=== PATIENT | male | born 1945 | race Caucasian/White ===

== ENCOUNTER → 2019-12-13 15:52 | Outpatient (CLI) | payer MEDICARE, SELFPAY ==
--- NOTE | ~2019-12-13 | XR_ITS ---
EXAMINATION: XR chest 2V EXAM DATE: 12/13/2019 15:59 INDICATION: Bronchitis. TECHNIQUE: Frontal and lateral projections of the chest obtained and reviewed. Comparison is made to prior examination from 10/04/2019. FINDINGS: Sternotomy wires are present without findings to suggest sternal dehiscence. The lungs are clear. There are no pleural effusions. The cardiomediastinal silhouette is within normal limits. There is no pneumothorax suspected. Patient has diffuse idiopathic skeletal hyperostosis (DISH). IMPRESSION: No acute cardiopulmonary findings. Reviewed, dictated and finalized at location B. GER BUSINESS INFORMATION
== END ==
PROVIDERS: PCP Family Medicine; Visit Provider Family Medicine
DX: J40 Bronchitis, not specified as acute or chronic (principal)
CPT/HCPCS: 71046

== ENCOUNTER 2020-05-12 01:17 | Outpatient (CLI) | payer MEDICARE, SELFPAY ==
[2020-05-12 20:05] LABS: SARS-CoV-2 RNA PCR Negative
== END 2020-05-12 01:18 | disposition home or self-care (01) ==
LOC: ANHCOVIDDT 01:17
PROVIDERS: PCP Family Medicine; Visit Provider Specialist
DX: Z01.818 Encounter for other preprocedural examination (principal); Z11.59 Encounter for screening for other viral diseases
CPT/HCPCS: 87635; C9803; U0003

== ENCOUNTER 2020-05-15 05:22 | Day surgery (SDC) | payer MEDICARE, SELFPAY ==
[2020-05-11 20:42] VITALS: BMI 33.5
[2020-05-15] VITALS (8 sets, daily range): BP systolic 127–141; BP diastolic 52–96; PULSE 48–107; RESP 14–20; TEMP 36.3; O2SAT 97–100; BMI 32.1
--- NOTE | 2020-05-15 06:00 | ECG_ITS ---
Measurements Intervals [place] Rate: 110 P: MI: 0 QRS: 71 QRSD: 153 T: -15 QT: 382 QTc: 519 Interpretive Statements ATRIAL FLUTTER/TACHYCARDIA WITH RAPID VENTRICULAR RESPONSE RIGHT BUNDLE BRANCH BLOCK BASELINE ARTIFACT- II, III, AVL, AVF ABNORMAL ECG Electronically Signed On 05-15-2020 9:17:25 CDT by Murali Jc D.O.
[2020-05-15 09:34] LABS: Anion Gap 14.7 mmol/L (7-16); Blood Urea Nitrogen 24 mg/dL (9-20); Calcium 9.6 mg/dL (8.4-10.2); Carbon Dioxide 25 mmol/L (22-30); Chloride 98 mmol/L (98-107); Estimated CRCL calculation 65 ml/min; Estimated Glomerular Filt Rate > 60; Glucose 245 mg/dL (75-110); Magnesium 1.4 mg/dL (1.6-2.3); Potassium 3.7 mmol/L (3.4-5.0); Sodium 134 mmol/L (137-145)
--- NOTE | 2020-05-15 09:58 | P.PCNCC_ITS ---
Cardiac Cath Procedure Note Date of procedure:: 05/15/20 Performing physician:: Daljit Aguilar MD Indication:: Atrial fibrillation, atrial flutter, recent ablation Brief clinical history:: 74-year-old patient with a history of atrial fib treated with recent ablation at another hospital. He is symptomatic with lack of energy and felt to be back in atrial fibrillation. Of another attempt at electrical cardioversion has been recommended by his yarn mercerizer operator helper and scheduled for us here this morning. ECG upon arrival appears to show atypical atrial flutter with right bundle branch block. Procedure Procedure performed:: DC cardioversion Sedation/Medication given:: propofol 50 mg case start time is 9:48 a.m. case end time 9:50 a.m. sedation provided by Cornel Jimenez RN , trained observer Estimated blood loss:: no blood loss Procedure note:: patient was brought to the cardiac catheterization lab holding area in the postabsorptive state. He was in the supine position with defibrillator patches placed in the AP position. The defibrillator was turned on at 200 joules in synchronized to the R-wave. He was then sedated with propofol 1 dose of 50 mg provided very good sedation. Following this he was cardioverted with 200 joules in a synchronized fashion restoring normal sinus rhythm Findings:: successful DC cardioversion of atrial flutter to sinus rhythm using 200 joules x1 shock Conclusion:: as above successful electrical tenriism of normal sinus rhythm Daljit Aguilar MD [facility]
--- NOTE | 2020-05-15 10:15 | ECG_ITS ---
Measurements Intervals [place] Rate: 67 P: 71 ND: 197 QRS: 22 QRSD: 144 T: -23 QT: 447 QTc: 474 Interpretive Statements SINUS RHYTHM RIGHT BUNDLE BRANCH BLOCK BASELINE ARTIFACT- I, II, AVR ABNORMAL ECG Electronically Signed On 05-15-2020 11:49:07 CDT by Murali Jc D.O.
--- NOTE | 2020-06-08 07:16 | PM.IMHP ---
H&P: HPI History of Present Illness Date/Time: 06/08/20 07:16 Chief complaint: Afib Narrative: Vidal Chaudhary is a 74 year old male With a history of atrial fibrillation /atrial flutter who has been treated with medical antiarrhythmic therapy as well as anticoagulation. The patient also has undergone radiofrequency ablation and pulmonary vein isolation for maintenance of sinus rhythm. In follow-up with his caregivers non medical he was recently found to be back in atrial flutter. Another attempt at electrical cardioversion was recommended. Since the patient lives in this vicinity it was his desire to have this done [facility] rather than in [place] where his caregivers non medical practices. His symptom of the recurrent atrial fib is primarily fatigue and lack of energy and stamina. Review of Systems Constitutional: Constitutional: Reports fatigue Eyes: Eyes: Reports no additional eye complaints ENT: Reports system reviewed and no additional complaints, except as documented Cardiovascular: Cardiovascular: Reports palpitations Respiratory: Respiratory: Reports dyspnea on exertion Gastrointestinal: Gastrointestinal: Reports no additional gastrointestinal complaints Genitourinary: Genitourinary: Reports no additional male genitourinary complaints Musculoskeletal: Musculoskeletal: Reports no additional musculoskeletal complaints Integumentary/Breasts: Skin/Breast: Reports system reviewed and no additional complaints, except as docu Neurologic: Reports system reviewed and no additional complaints, except as documented Psychiatric: Psychiatric: Reports no additional psychiatric complaints [facility] Social History Social History Smoking status: Never smoker Second hand tobacco smoke exposure: No Alcohol intake: never Substance use: never Substance use type: does not use Additional living arrangements comments: LIVES W/ , [place] Gender identity (if verbalized by the patient): Male Spiritual care concerns: No Agree to blood products: No Meds Home Medications and Allergies Home Medications Medication Instructions Recorded Confirmed Type isosorbide dinitrate 20 mg PO TID 09/25/19 06/01/20 History Xarelto 20 mg PO QPM 11/09/19 06/01/20 History aspirin [Adult Low Dose Aspirin] 81 mg PO DAILY 11/09/19 06/01/20 History quinapril 40 mg tablet 40 mg PO DAILY #90 tablet 12/08/19 06/01/20 Rx empagliflozin 10 mg tablet 10 mg PO DAILY #90 tablet 03/10/20 06/01/20 Rx pen needle, diabetic 32 gauge x #100 each 03/20/20 06/01/20 Rx 1/6 atorvastatin 40 mg tablet 40 mg PO DAILY #90 tablet 03/22/20 06/01/20 Rx linagliptin 5 mg tablet 5 mg PO DAILY 04/04/20 06/01/20 History sertraline 100 mg tablet 200 mg PO DAILY #90 tablet 04/17/20 06/01/20 Rx metformin 1,000 mg tablet 1,000 mg PO BID #180 tablet 05/04/20 06/01/20 Rx Basaglar KwikPen U-100 Insulin 30 unit SUB-Q HS 05/11/20 06/01/20 History metoprolol tartrate 100 mg PO BID 05/11/20 06/01/20 History insulin aspart U-100 100 unit/mL See Rx Instructions SUB-Q .COMPLEX 05/16/20 06/01/20 Rx (3 mL) subcutaneous pen #15 ml MDD 80 units insulin syringe-needle U-100 1 mL #100 each 05/24/20 06/01/20 Rx 31 gauge x 16 insulin lispro 200 unit/mL (3 mL) See Rx Instructions .ROUTE 05/25/20 06/01/20 Rx subcutaneous pen .COMPLEX #6 syringe hydrochlorothiazide 25 mg tablet 25 mg PO DAILY #90 tablet 06/06/20 Rx Allergies Allergy/AdvReac Type Severity Reaction Status Date / Time No Known Allergies Allergy Verified 06/05/20 14:28 Exam Const: General: no acute distress HENMT: Mouth: Yes moist mucous membranes Eyes: General: appearance normal, both eyes and all related structures Neck: Neck: supple and no JVD Thyroid: thyroid normal Other: Carotid pulses are intact bilaterally and are free of bruits Resp: Effort & Inspection: normal respiratory effort Auscultation: clear to auscult
== END 2020-05-15 11:10 | disposition home or self-care (01) ==
PROVIDERS: PCP Family Medicine; Visit Provider Specialist
PROC: 5A2204Z Restoration of Cardiac Rhythm, Single (ICD-10-PCS; principal; 2020-05-15 10:00)
DX: I48.91 Unspecified atrial fibrillation (principal); I48.92 Unspecified atrial flutter; I45.10 Unspecified right bundle-branch block
CPT/HCPCS: 36415; 80048; 83735; 92960; 93005; J2704; J7030

== ENCOUNTER 2020-09-25 07:37 | Outpatient (CLI) | payer MEDICARE, SELFPAY ==
--- NOTE | ~2020-09-25 | US_ITS ---
EXAMINATION: US abdomen limited DATE: 09/25/2020 08:31 INDICATION: Abnormal liver function tests. TECHNIQUE: Multiple grayscale and Doppler ultrasound images of the abdomen were obtained. COMPARISON: CT 07/03/2015 FINDINGS: The visualized portions of the head, body, and tail of the pancreas are normal. The liver i s normal without focal lesion. No definite liver surface nodularity. There is normal flow in main por rama vein. The gallbladder is absent. The common duct is normal and measures 4 mm. Right kidney is nor mal. IMPRESSION: 1. No etiology for abnormal liver function tests. Reviewed, dictated and finalized at location B. GRAD RN
== END 2020-09-25 07:38 | disposition home or self-care (01) ==
PROVIDERS: PCP Family Medicine; Visit Provider Nurse Practitioner Family
DX: R79.89 Other specified abnormal findings of blood chemistry (principal)
CPT/HCPCS: 76705

== ENCOUNTER 2020-12-01 16:44 | Emergency (ER) | payer MEDICARE, SELFPAY ==
--- NOTE | ~2020-12-01 | XR_ITS ---
EXAMINATION: XR chest 2V DATE: 12/01/2020 17:52 INDICATION: Midsternal chest pain and upper stomach pain. TECHNIQUE: PA and lateral views of the chest were obtained. COMPARISON: Chest radiograph dated and CT dated 10/04/2019 FINDINGS: The lungs remain clear with no focal airspace opacities, pulmonary edema, pleural effusion or pneumot horax. The cardiomediastinal silhouette is normal. Coronary artery atherosclerosis with median sterno matthew wires and mediastinal surgical clips are seen, likely from prior coronary artery bypass grafting . Cholecystectomy clips in the right upper quadrant. There are bridging osteophytes at multiple level s in the spine, consistent with diffuse idiopathic skeletal hyperostosis (DISH). IMPRESSION: 1. No acute cardiopulmonary disease. Reviewed, dictated and finalized at location A. RACTIVE ACCOUNT MANAGER
--- NOTE | ~2020-12-01 | CT_ITS ---
EXAMINATION: CTA chest PE protocol DATE: 12/01/2020 21:36 INDICATION: Chest pain TECHNIQUE: Computed tomography (CT) pulmonary angiogram of the chest was performed with 100 mL Omnipa que-350 intravenous contrast. Additional 3D reconstructions utilizing coronal maximum intensity proje ction (MIP) were performed. Automated exposure control and iterative reconstruction technique were em ployed. The dose-length product was 698.48 mGy-cm. COMPARISON: 10/04/2019 FINDINGS: Excellent contrast opacification of the pulmonary arteries. There is mild streak artifact from dense contrast in the superior vena cava and right atrium. Mild scattered respiratory motion artifact which does not significantly limit evaluation. No pulmonary embolism. Mild emphysema. Mild dependent atele ctasis in the bilateral lower lobes. No pneumonia, pulmonary edema or pleural effusion or pneumothora x. Cardiomegaly. Postoperative change of prior median sternotomy and coronary artery bypass grafting with atherosclerotic calcification along the [place] coronary arteries as well as along the bypass gra ft which extends from the aorta to the left anterior descending coronary artery. Thoracic aorta is no rmal in caliber. No pathologically enlarged thoracic lymphadenopathy. Cholecystectomy clips at the ga llbladder fossa. There are bridging osteophytes at multiple levels in the spine, consistent with diff use idiopathic skeletal hyperostosis (DISH). IMPRESSION: 1. No pulmonary embolism or other acute cardiopulmonary disease. 2. Cardiomegaly. Reviewed, dictated and finalized at location A. MANAGEMENT COORDINATOR
--- NOTE | 2020-12-01 16:58 | ECG_ITS ---
Measurements Intervals [place] Rate: 54 P: 63 MD: 182 QRS: 64 QRSD: 145 T: -10 QT: 484 QTc: 460 Interpretive Statements SINUS BRADYCARDIA RIGHT BUNDLE BRANCH BLOCK ABNORMAL ECG Electronically Signed On 12-01-2020 20:55:21 GOLF COURSE ASSISTANT by Murali Jc D.O.
[2020-12-01 16:59] VITALS: BP 151/65; PULSE 54; RESP 18; TEMP 35.9; O2SAT 100
[2020-12-01 17:11] LABS: Basophils Percent Auto 0.4 % (0.2-1.2); Eosinophils Absolute Auto 0.4 K/mm3 (0-0.3); Eosinophils Percent Auto 3.8 % (0-4.4); Hematocrit 36.4 % (42.0-52.0); Hemoglobin 11.9 g/dL (14.0-18.0); Immature Granulocyte Absolute 0.03 K/mm3 (0.00-0.031); Immature Granulocyte Percent A 0.3 % (0-0.5); Lymphocytes Absolute Auto 1.73 K/mm3 (0.9-3.2); Lymphocytes Percent Auto 17.1 % (18.3-44.2); Mean Corpuscular HGB Conc 32.7 g/dl (32-36); Mean Corpuscular Hemoglobin 28.9 pg (26-34); Mean Corpuscular Volume 88.3 fl (80-100); Mean Platelet Volume 9.1 fl (7.4-10.4); Monocytes Absolute Auto 0.9 K/mm3 (0.1-0.6); Monocytes Percent Auto 8.4 % (2.6-8.5); Neutrophils Absolute Auto 7.1 K/mm3 (1.3-6.7); Platelet Count Result 265 k/mm3 (150-375); Red Blood Count 4.12 M/mm3 (4.6-6.20); Red Cell Distribution Width 14.6 % (11.5-14.5); White Blood Count 10.1 K/mm3 (4.5-10.0)
[2020-12-01 17:22] LABS: INR 1.1; Prothrombin Time 14.6 Seconds (11.1-14.7)
[2020-12-01 17:23] LABS: Partial Thromboplastin Time 28.1 SECONDS (22.3-36.8)
[2020-12-01 17:29] LABS: Anion Gap 10 mmol/L (8-16); Blood Urea Nitrogen 26 mg/dL (9-20); Calcium 9.5 mg/dL (8.4-10.2); Carbon Dioxide 26 mmol/L (22-30); Chloride 102 mmol/L (98-107); Estimated CRCL calculation 63 ml/min; Estimated Glomerular Filt Rate > 60; Glucose 255 mg/dL (75-110); Potassium 4.3 mmol/L (3.4-5.0); Sodium 138 mmol/L (137-145)
[2020-12-01 17:40] LABS: Troponin I 0.033 ng/mL (0.000-0.034)
--- NOTE | 2020-12-01 18:33 | ED.CHESTPAIN ---
HPI - Chest Pain General Chief Complaint: Chest Pain Stated Complaint: Chest Pain Time Seen by Provider: 12/01/20 18:25 Source: patient Mode of arrival: ambulatory Limitations: no limitations History of Present Illness HPI narrative: A 75-year-old male comes into the emergency department tonight with complaints of chest pain. Patient states that he feels it at the upper end of his abdomen and lower chest right in the midline. Patient states that he gets relief when lying down with this. Patient does state that he also feels the need to belch. Patient states that eating seems to bring this on. He states that when he eats food it feels like it goes to the point where he is feeling the pain and then seems to get stuck. He notes that eventually it does seem to subside spontaneously. Patient also endorses intermittent nausea with this that is mild. Related Data Home Medications Medication Instructions Recorded Confirmed isosorbide dinitrate 20 mg PO TID 09/25/19 08/07/20 Xarelto 20 mg PO QPM 11/09/19 08/07/20 aspirin [Adult Low Dose Aspirin] 81 mg PO DAILY 11/09/19 08/07/20 linagliptin 5 mg tablet 5 mg PO DAILY 04/04/20 08/07/20 metoprolol tartrate 100 mg PO BID 05/11/20 08/07/20 insulin glargine 100 unit/mL (3 35 unit SUB-Q HS ml 08/07/20 08/07/20 mL) subcutaneous pen Allergies Allergy/AdvReac Type Severity Reaction Status Date / Time No Known Allergies Allergy Verified 12/01/20 19:01 Review of Systems Review of Systems: Narrative: CONSTITUTIONAL: Denies fever, chills, or sweats. EYES: Denies visual changes, redness, or discharge. ENT: Denies rhinorrhea, congestion, sore throat, or otalgia. CARDIOVASCULAR: Denies palpitations or edema. Endorses chest pain RESPIRATORY: Denies cough or dyspnea. GASTROINTESTINAL: Denies abdominal pain, nausea, vomiting, or diarrhea. GENITOURINARY: Denies dysuria or hematuria. SKIN: Denies rash or itching. MUSCULOSKELETAL: Denies back pain, joint pain, or myalgia. NEUROLOGIC: Denies headache, numbness, dizziness, or weakness. PSYCHIATRIC: Denies anxiety or depression. [facility] Past Medical History Medical History A-fib Atherosclerotic heart disease of [place] coronary artery without angina pectoris BMI 31.0-31.9,adult Bronchitis Cerebrovascular accident (CVA) Coronary artery disease Current mild episode of major depressive disorder Type 2 diabetes mellitus without complications Surgical History Surgical History Hx of CABG Family History Family History Father Hypertension Mother Cerebrovascular accident Social History Social History Smoking status: Never smoker Second hand tobacco smoke exposure: No Alcohol intake: never Substance use: never Substance use type: does not use Additional living arrangements comments: LIVES W/ , [place] Gender identity (if verbalized by the patient): Male Spiritual care concerns: No Agree to blood products: No Exam Narrative: Exam Narrative: GENERAL: Well-appearing, well-nourished, and in no acute distress. HEAD: Normocephalic, atraumatic. EYES: PERRLA and EOMI. ENT: Nares clear, no rhinorrhea or epistaxis. Mucous membranes moist. NECK: Supple. No adenopathy or masses. No carotid bruits or JVD CHEST: Clear to auscultation. No respiratory distress. No wheezes rales or rhonchi HEART: Regular rate and rhythm. No murmur heard. Normal peripheral pulses. ABDOMEN: Soft, nondistended, normal active bowel sounds. Tenderness to palpation in the epigastrium EXTREMITIES: Normal range of motion. No edema. SKIN: Warm, dry, no rash. NEURO: No focal deficits. Alert and oriented x3. PSYCH: Normal mood and affect. Course Reevaluation(s) Reevaluation #1: Patient had been very patiently waiting this entire time
[2020-12-01] MEDS: ASPIRIN 81 MG CHEWABLE TABLET 324 MG PO (19:15)
[2020-12-01] MEDS: BELLADONNA ALK/PHENOB ELIX 10 ML, MAG HYDROX/ALUMINUM HYD/SIMETH 30 ML, LIDOCAINE HCL 2... PO (19:16)
[2020-12-01 21:18] LABS: Troponin I 0.029 ng/mL (0.000-0.034)
[2020-12-01 22:02] VITALS: BP 108/73; PULSE 86; RESP 16; TEMP 36.4; O2SAT 97
[2020-12-01 22:58] VITALS: BP 104/62; PULSE 62; RESP 16; TEMP 36.3; O2SAT 97
== END 2020-12-01 22:59 | disposition home or self-care (01) ==
PROVIDERS: Emergency Provider Emergency Medicine; PCP Family Medicine
DX: R10.13 Epigastric pain (principal); R07.9 Chest pain, unspecified; I48.91 Unspecified atrial fibrillation; I25.10 Atherosclerotic heart disease of native coronary artery without angina pectoris; Z86.73 Personal history of transient ischemic attack (TIA), and cerebral infarction without residual deficits; E11.9 Type 2 diabetes mellitus without complications; Z79.84 Long term (current) use of oral hypoglycemic drugs; Z79.82 Long term (current) use of aspirin; Z79.01 Long term (current) use of anticoagulants; I51.7 Cardiomegaly; R00.1 Bradycardia, unspecified; I45.10 Unspecified right bundle-branch block
CPT/HCPCS: 36415; 71046; 71275; 80048; 84484; 85025; 85610; 85730; 93005; 99284; A9270; Q9967

== ENCOUNTER 2021-01-20 22:48 | Emergency (ER) | payer MEDICARE, SELFPAY ==
--- NOTE | ~2021-01-20 | CT_ITS ---
EXAMINATION: CT abdomen pelvis w con DATE: 01/21/2021 02:40 INDICATION: Right upper quadrant blunt abdominal trauma TECHNIQUE: Computed tomography (CT) of the abdomen and pelvis was performed with 100 cc Omnipaque 350 intravenous contrast. Automated exposure control and iterative reconstruction technique were employe d. Exam dose: 1264.34 mGy-cm total exam DLP. COMPARISON: 07/03/2015 CTA chest abdomen pelvis FINDINGS: There is bilateral lower lobe dependent atelectasis. Borderline heart size. Status post sternotomy. No pericardial or pleural effusion. Very small sliding hiatal hernia. Status post cholecystectomy. No hepatic, splenic, pancreatic space-occupying mass lesion. There are s ome pancreatic calcifications which may indicate chronic pancreatitis. Mild nodularity of the adrenal glands; there may be small adrenal adenoma(s). No renal space occupying mass lesion is detected. Prominent renal artery calcifications are noted candelario aterally. No urinary tract calculus or hydroureteronephrosis is evident. The urinary bladder is distended but o therwise unremarkable. Moderate prostatomegaly. There is diverticulosis of the left and to a lesser extent right colon; no CT evidence of diverticuli tis. No bowel obstruction, bowel wall thickening, pneumatosis or intraperitoneal free air. Small fat-containing umbilical hernia and mildly larger adjacent midline supraumbilical fat-containin g ventral abdominal wall hernia Large fat-containing right lateral abdominal spigelian hernia. There is extensive calcification of the abdominal aorta, celiac, splenic, renal and superior and infe rior mesenteric as well as iliac and femoral arteries. No abdominal aortic aneurysm. No suspicious osteolytic or osteoblastic lesions are noted. IMPRESSION: Status post cholecystectomy Very small sliding hiatal hernia Diverticulosis of the colon; no CT evidence of diverticulitis Extensive arterial calcifications including extensive celiac and superior and inferior mesenteric art khanh calcifications Right spigelian fat-containing hernia Small umbilical and adjacent mild supraumbilical midline ventral abdominal wall fat-containing hernia s Reviewed, dictated and finalized at Location A. Reviewed, dictated and finalized at location A. IMPRESSION: Status post cholecystectomy Very small sliding hiatal hernia Diverticulosis of the colon; no CT evidence of diverticulitis Extensive arterial calcifications including extensive celiac and superior and i nferior mesenteric artery calcifications Right spigelian fat-containing hernia Small umbilical and adjacent mild supraumbilical midline ventral abdominal wall fat-containing hernias
--- NOTE | ~2021-01-20 | CT_ITS ---
EXAMINATION: CT brain wo con DATE: 01/21/2021 02:41 INDICATION: Fall. Trauma. TECHNIQUE: Computed tomography (CT) of the head was performed without intravenous contrast. The mA wa s adjusted according to patient size. Iterative reconstruction technique was employed. Exam dose: 60 5.33 mGy-cm total exam DLP. COMPARISON: 03/11/2018 CT brain 03/02/2018 MRI brain FINDINGS: Prominent bilateral vertebral artery calcifications and carotid siphon and supraclinoid int ernal carotid artery calcifications. There is nonspecific diminished attenuation cerebral white matter, likely due to chronic small vessel ischemic changes. Chronic basal ganglia lacunar infarcts. There is moderate central and cortical cerebral and cerebellar atrophy. No intracranial mass lesion or hemorrhage, midline shift or mass effect effect or subdural or epidura l hematoma is detected. There is soft tissue thickening of the ethmoid air cells, left greater than right. The paranasal sinu ses and mastoid air cells are otherwise unremarkable. No fracture or bone destruction of the cranial vault. IMPRESSION: Cerebral atherosclerosis and chronic small vessel ischemic changes of cerebral white mat ter, chronic basal ganglia lacunar infarcts No skull fracture or acute intracranial finding Reviewed, dictated and finalized at Location A. Reviewed, dictated and finalized at location A. IMPRESSION: Cerebral atherosclerosis and chronic small vessel ischemic changes of cerebral white matter, chronic basal ganglia lacunar infarcts No skull fracture or acute intracranial finding
--- NOTE | ~2021-01-20 | XR_ITS ---
XR wrist RT min 3V DATE: 01/20/2021 23:47 INDICATION: Right wrist injury and pain following a fall 8 hours ago TECHNIQUE: 4 views COMPARISON: 03/26/2008 right hand FINDINGS: There are extensive arterial calcifications including metatarsal and digital artery calcifi cations, suggesting diabetes. Diffuse osteopenia. There is evidence of a minimally displaced intra-articular fracture of the lateral base of the fifth metacarpal bone. No other fracture or dislocation is evident. No periosteal reaction or bone destruction. IMPRESSION: Intra-articular fracture of lateral aspect of base of fifth metacarpal bone Severe arterial calcifications suggesting diabetes Osteopenia Reviewed, dictated and finalized at location A. IMPRESSION: Intra-articular fracture of lateral aspect of base of fifth metacar pal bone Severe arterial calcifications suggesting diabetes Osteopenia
--- NOTE | ~2021-01-20 | XR_ITS ---
XR hip RT min 3V w AP pelvis DATE: 01/20/2021 23:46 INDICATION: Fall 8 hours ago. Lateral right hip pain. TECHNIQUE: AP pelvis. AP, lateral and crosstable lateral views of right hip COMPARISON: None FINDINGS: There is extensive abdominal aortic, iliac and femoral arterial calcification. Normal alignment at the pubic symphysis and sacroiliac joints. No pelvic fracture or bone destruction is evident. There is mild to moderate right hip osteoarthritis. No right hip fracture or dislocation, avascular n ecrosis or bone destruction is detected. IMPRESSION: Moderate right hip osteoarthritis; no right hip fracture, dislocation, avascular necrosis or bone destruction Extensive arterial calcifications Reviewed, dictated and finalized at location A. IMPRESSION: Moderate right hip osteoarthritis; no right hip fracture, dislocati on, avascular necrosis or bone destruction Extensive arterial calcifications
[2021-01-20 23:04] VITALS: BP 122/64; PULSE 67; RESP 20; TEMP 36.2; O2SAT 97
--- NOTE | 2021-01-21 01:34 | ED.FALL ---
HPI - Fall General Chief Complaint: Fall Stated Complaint: glf - rt side - arm / hip / back and left arm lac Time Seen by Provider: 01/21/21 01:16 Source: patient and RN notes reviewed Mode of arrival: ambulatory Limitations: no limitations History of Present Illness HPI Narrative: Patient is 75 years old white male presented to the ED with a fall. Patient was managing some stuff at the backyard, lost his balance, fell to the ground, struck the head and right lower ribs and right upper abdomen hard on the ground. Denies loss of consciousness, fever, chills, nausea, vomiting. 10-hour prior to arrival to the emergency room. Patient on Xarelto Related Data Home Medications Medication Instructions Recorded Confirmed isosorbide dinitrate 20 mg PO TID 09/25/19 12/12/20 Xarelto 20 mg PO QPM 11/09/19 12/12/20 aspirin [Adult Low Dose Aspirin] 81 mg PO DAILY 11/09/19 12/12/20 linagliptin 5 mg tablet 5 mg PO DAILY 04/04/20 12/12/20 metoprolol tartrate 100 mg PO BID 05/11/20 12/12/20 insulin glargine 100 unit/mL (3 35 unit SUB-Q HS ml 08/07/20 12/12/20 mL) subcutaneous pen Allergies Allergy/AdvReac Type Severity Reaction Status Date / Time No Known Allergies Allergy Verified 12/12/20 09:59 Review of Systems Review of Systems: Narrative: CONSTITUTIONAL: Denies fever, chills, or sweats. EYES: Denies visual changes, redness, or discharge. ENT: Denies rhinorrhea, congestion, sore throat, or otalgia. CARDIOVASCULAR: Denies chest pain, palpitations, or edema. RESPIRATORY: Denies cough or dyspnea. GASTROINTESTINAL: Denies abdominal pain, nausea, vomiting, or diarrhea. GENITOURINARY: Denies dysuria or hematuria. SKIN: Denies rash or itching. MUSCULOSKELETAL: Denies back pain, joint pain, or myalgia. NEUROLOGIC: Denies headache, numbness, or weakness. PSYCHIATRIC: Denies anxiety or depression. [facility] Past Medical History Medical History A-fib Atherosclerotic heart disease of [place] coronary artery without angina pectoris BMI 29.0-29.9,adult BMI 31.0-31.9,adult Bronchitis Cerebrovascular accident (CVA) Coronary artery disease Current mild episode of major depressive disorder Hiatal hernia with GERD [place] Type 2 diabetes mellitus without complications Surgical History Surgical History Hx of CABG Family History Family History Father Hypertension Mother Cerebrovascular accident Social History Social History Smoking status: Never smoker Second hand tobacco smoke exposure: No Alcohol intake: never Substance use: never Substance use type: does not use Additional living arrangements comments: LIVES W/ , [place] Gender identity (if verbalized by the patient): Male Spiritual care concerns: No Agree to blood products: No Exam Narrative: Exam Narrative: General appearance: Well-developed, well-nourished Skin: Normal color Head: Normocephalic, nontraumatic Eyes: Clear conjunctiva ENT: Oropharynx normal, ears normal, nose normal Neck: Supple, nontender Chest and respiratory: Airway patent, no respiratory distress, no accessory muscle use mild tenderness right lower ribs Heart: Regular rate/rhythm Abdomen: Soft, moderate tenderness right upper quadrant, no organomegaly, quiet bowel sounds Vascular: Normal peripheral pulses, normal capillary refill. Musculoskeletal: Diffuse tenderness right wrist, with slight limited range of motion, no deformity, no bruises Neurologic: Alert and oriented ?3, DRY JANITOR is normal as tested, no gross motor deficit
[2021-01-21 01:41] VITALS: BP 139/50; PULSE 55; RESP 18; O2SAT 97
[2021-01-21] MEDS: MORPHINE SULFATE (*CRX) 4 MG/ML INJ IV PUSH (01:42)
[2021-01-21] MEDS: ONDANSETRON INJ 4 MG/2 ML VIAL IV PUSH (01:42)
[2021-01-21 01:59] LABS: Basophils Absolute Auto 0.1 K/mm3 (0.0-0.1); Basophils Percent Auto 0.7 % (0.2-1.2); Eosinophils Absolute Auto 0.8 K/mm3 (0-0.3); Hematocrit 36.4 % (42.0-52.0); Hemoglobin 11.6 g/dL (14.0-18.0); Immature Granulocyte Absolute 0.08 K/mm3 (0.00-0.031); Immature Granulocyte Percent A 0.6 % (0-0.5); Lymphocytes Absolute Auto 1.99 K/mm3 (0.9-3.2); Lymphocytes Percent Auto 15.5 % (18.3-44.2); Mean Corpuscular HGB Conc 31.9 g/dl (32-36); Mean Corpuscular Hemoglobin 27.6 pg (26-34); Mean Corpuscular Volume 86.7 fl (80-100); Mean Platelet Volume 9.6 fl (7.4-10.4); Monocytes Absolute Auto 1.1 K/mm3 (0.1-0.6); Monocytes Percent Auto 8.7 % (2.6-8.5); Neutrophils Absolute Auto 8.8 K/mm3 (1.3-6.7); Neutrophils Percent Auto 68.5 % (45.5-73.1); Platelet Count Result 255 k/mm3 (150-375); Red Cell Distribution Width 16.2 % (11.5-14.5); White Blood Count 12.8 K/mm3 (4.5-10.0)
[2021-01-21 02:13] LABS: Alanine Aminotransferase 42 U/L (4-50); Albumin Level 3.9 g/dL (3.5-5.1); Alkaline Phosphatase 100 U/L (38-126); Anion Gap 9 mmol/L (8-16); Aspartate Amino Transferase 50 U/L (17-59); Bilirubin,Total 0.3 mg/dL (0.2-1.3); Blood Urea Nitrogen 31 mg/dL (9-20); Calcium 9.7 mg/dL (8.4-10.2); Carbon Dioxide 27 mmol/L (22-30); Chloride 103 mmol/L (98-107); Estimated CRCL calculation 51 ml/min; Estimated Glomerular Filt Rate 59; Glucose 202 mg/dL (75-110); Potassium 4.2 mmol/L (3.4-5.0); Sodium 139 mmol/L (137-145)
[2021-01-21 04:32] VITALS: BP 124/53; PULSE 60; RESP 17; O2SAT 97
== END 2021-01-21 05:26 | disposition home or self-care (01) ==
PROVIDERS: Emergency Provider Emergency Medicine; PCP Family Medicine
DX: S62.316A Displaced fracture of base of fifth metacarpal bone, right hand, initial encounter for closed fracture (principal); Z79.01 Long term (current) use of anticoagulants; I48.91 Unspecified atrial fibrillation; I25.10 Atherosclerotic heart disease of native coronary artery without angina pectoris; K21.9 Gastro-esophageal reflux disease without esophagitis; E11.9 Type 2 diabetes mellitus without complications; K57.90 Diverticulosis of intestine, part unspecified, without perforation or abscess without bleeding; Z86.73 Personal history of transient ischemic attack (TIA), and cerebral infarction without residual deficits; Z79.4 Long term (current) use of insulin; I67.2 Cerebral atherosclerosis; K44.9 Diaphragmatic hernia without obstruction or gangrene; K43.9 Ventral hernia without obstruction or gangrene; M16.11 Unilateral primary osteoarthritis, right hip; M85.841 Other specified disorders of bone density and structure, right hand; W18.39XA Other fall on same level, initial encounter
CPT/HCPCS: 36415; 70450; 73110; 73502; 74177; 80053; 85025; 96374; 96375; 99284; J2270; J2405; Q9967

== ENCOUNTER → 2021-02-02 01:49 | Outpatient (CLI) | payer MEDICARE, SELFPAY ==
[2021-02-02 19:39] LABS: SARS-CoV-2 RNA PCR Negative
== END ==
PROVIDERS: PCP Family Medicine; Visit Provider Internal Medicine Gastroenterology
DX: Z01.812 Encounter for preprocedural laboratory examination (principal); Z20.822 Contact with and (suspected) exposure to COVID-19
CPT/HCPCS: C9803; U0003; U0005

== ENCOUNTER 2021-02-05 01:14 | Day surgery (SDC) | payer MEDICARE, SELFPAY ==
[2021-01-24 14:45] VITALS: BMI 29.2
--- NOTE | 2021-01-26 09:20 | PC.NURSE ---
Received instruction from Dr. Aguilar office regarding Xarelto hold for pt's EGD with Dr. Dominguez on 02/05/21. Called and instructed pt's Star to have pt. hold Xarelto for three days prior to procedure as instructed by Dr. Aguilar. Pt's verbalized understanding. Jose Manuel Sandoval RN 01/26/21 [id number].
[2021-02-05 06:58] VITALS: BP 116/59; PULSE 64; RESP 18; TEMP 36.4; O2SAT 99; BMI 27.6
[2021-02-05] MEDS: LACTATED RINGERS 1,000 ML 150 ML IV CONT (07:11)
[2021-02-05 07:20] LABS: Glucose Point of Care 116 (65-105)
--- NOTE | 2021-02-05 07:37 | WPDANESEPPF ---
Anes - Initial Pre Proc Eval Procedure: Operation Date: 02/05/21 08:00 Proposed Procedures p Esophagogastroduodenoscopy - Sebastien Phelan MD Date/Time: 02/05/21 07:37 Surgeon: Sebastien Phelan MD Pre Op Diagnosis: GERD, Melena Patient Data Age: 75 Gender: M Height: 5 ft 11 in Weight: 89.9 kg Last Vital Signs Temp 97.6 F 02/05/21 06:58 Pulse 64 02/05/21 06:58 Resp 18 02/05/21 06:58 BP 116/59 L 02/05/21 06:58 Pulse Ox 99 02/05/21 06:58 Allergies Allergy/AdvReac Type Severity Reaction Status Date / Time cyclobenzaprine AdvReac Confusion Verified 02/05/21 06:54 [From Flexeril] tramadol AdvReac Confusion Verified 02/05/21 06:54 Home Medications Medication Instructions Recorded Confirmed Type isosorbide dinitrate 20 mg PO TID 09/25/19 01/24/21 History Xarelto 20 mg PO QACDINNER 11/09/19 02/05/21 History aspirin [Adult Low Dose Aspirin] 81 mg PO DAILY 11/09/19 02/05/21 History linagliptin 5 mg tablet 5 mg PO QACDINNER 04/04/20 01/24/21 History insulin syringe-needle U-100 1 mL #100 each 05/24/20 01/22/21 Rx 31 gauge x 03/04 insulin glargine 100 unit/mL (3 35 unit SUB-Q HS ml 08/07/20 02/05/21 History mL) subcutaneous pen quinapril 40 mg tablet 40 mg PO DAILY #90 tablet 09/02/20 02/05/21 Rx pen needle, diabetic 32 gauge x See Rx Instructions .ROUTE 11/06/20 01/24/21 Rx 1/6 .COMPLEX #100 syringe insulin lispro 200 unit/mL (3 mL) See Rx Instructions .ROUTE 11/09/20 02/05/21 Rx subcutaneous pen .COMPLEX #6 syringe flash glucose scanning reader #1 ea 11/28/20 01/22/21 Rx flash glucose sensor #6 ea 11/28/20 01/22/21 Rx hydrochlorothiazide 25 mg tablet 12.5 mg PO DAILY #90 tablet 11/28/20 02/05/21 Rx metformin 1,000 mg tablet 1,000 mg PO BID #180 tablet 11/28/20 02/05/21 Rx empagliflozin 10 mg tablet 10 mg PO DAILY #90 tablet 12/18/20 02/05/21 Rx atorvastatin 40 mg PO HS 01/24/21 02/05/21 History metoprolol tartrate 100 mg PO BID 01/24/21 01/24/21 History pantoprazole 40 mg tablet,delayed 40 mg PO HS #30 tablet 01/26/21 02/05/21 Rx release sertraline 100 mg tablet See Rx Instructions .ROUTE 02/05/21 02/05/21 Rx .COMPLEX #180 tablet Laboratory Tests 02/05/21 07:17 POC Capillary Glucose 116 mg/dl H mg/dl (65-105) Patient hx anesthesia problems: none Family hx anesthesia problems: none [facility] Past Medical History Medical History A-fib Atherosclerotic heart disease of [place] coronary artery without angina pectoris BMI 28.0-28.9,adult BMI 29.0-29.9,adult BMI 31.0-31.9,adult Bronchitis Cerebrovascular accident (CVA) Coronary artery disease Current mild episode of major depressive disorder Hiatal hernia with GERD Melena Type 2 diabetes mellitus without complications Surgical History Surgical History Hx of CABG Family History Family History Father Hypertension Mother Cerebrovascular accident Social History Social History Smoking status: Never smoker Second hand tobacco smoke exposure: Yes Alcohol intake: current Substance use: never Substance use type: does not use Living arrangements: with family Additional living arrangements comments: LIVES W/ , [place] Additional occupation/education comments: [employer] Gender identity (if verbalized by the patient): Male Spiritual care concerns: No Agree to blood products: No Anes - Eval Final PreProcedure Day of Procedure 02/05/21 07:37 Patient weight: overweight Heart: regular rate and rhythm Lungs: clear to auscultation Airway: Mallampati scale class II Neurological: alert and oriented Last oral intake: >/= 8 hours ASA classification: III Emergent: no Anesthetic plan: proceed
--- NOTE | 2021-02-05 07:57 | PM.HPGS ---
History of Present Illness History of Present Illness Consent: Risks, benefits, and alternatives have been discussed and questions answered. Patient agrees to proceed with procedure. Chief complaint: GERD, Melena Narrative: Vidal Chaudhary is a 75 year old male intermittent nausea, vomiting and epigastric pain, using mylanta and tums. Never had egd. Also h/o DM Review of Systems Constitutional: Constitutional: Denies headache(s) and Denies weakness Eyes: Eyes: Denies blurry vision ENT: Reports Normal hearing present, Denies headache(s) and Denies neck pain Cardiovascular: Cardiovascular: Denies chest pain and Denies dyspnea Respiratory: Respiratory: Denies dyspnea Gastrointestinal: Gastrointestinal: Reports no additional gastrointestinal complaints Genitourinary: Genitourinary: Denies dysuria Musculoskeletal: Musculoskeletal: Denies neck pain Integumentary/Breasts: Skin/Breast: Denies dry skin Neurologic: Reports Normal hearing present, Denies headache(s) and Denies weakness Psychiatric: Psychiatric: Denies anxiety Endocrine: Endocrine: Denies change in body appearance Hematologic/Lymphatic: Hematologic/Lymphatic: Denies easy bleeding Allergic/Immunologic: Allergic/Immunologic: Denies urticaria PMFSH Past Medical History Medical History A-fib Atherosclerotic heart disease of [place] coronary artery without angina pectoris BMI 28.0-28.9,adult BMI 29.0-29.9,adult BMI 31.0-31.9,adult Bronchitis Cerebrovascular accident (CVA) Coronary artery disease Current mild episode of major depressive disorder Hiatal hernia with GERD Melena Type 2 diabetes mellitus without complications Surgical History Surgical History Hx of CABG Family History Family History Father Hypertension Mother Cerebrovascular accident Social History Social History Smoking status: Never smoker Second hand tobacco smoke exposure: Yes Alcohol intake: current Substance use: never Substance use type: does not use Living arrangements: with family Additional living arrangements comments: LIVES W/ , [place] CHAUDH[place] Additional occupation/education comments: [employer] Gender identity (if verbalized by the patient): Male Spiritual care concerns: No Agree to blood products: No Meds Home Medications and Allergies Home Medications Medication Instructions Recorded Confirmed Type isosorbide dinitrate 20 mg PO TID 09/25/19 01/24/21 History Xarelto 20 mg PO QACDINNER 11/09/19 02/05/21 History aspirin [Adult Low Dose Aspirin] 81 mg PO DAILY 11/09/19 02/05/21 History linagliptin 5 mg tablet 5 mg PO QACDINNER 04/04/20 01/24/21 History insulin syringe-needle U-100 1 mL #100 each 05/24/20 01/22/21 Rx 31 gauge x 03/04 insulin glargine 100 unit/mL (3 35 unit SUB-Q HS ml 08/07/20 02/05/21 History mL) subcutaneous pen quinapril 40 mg tablet 40 mg PO DAILY #90 tablet 09/02/20 02/05/21 Rx pen needle, diabetic 32 gauge x See Rx Instructions .ROUTE 11/06/20 01/24/21 Rx 1/6 .COMPLEX #100 syringe insulin lispro 200 unit/mL (3 mL) See Rx Instructions .ROUTE 11/09/20 02/05/21 Rx subcutaneous pen .COMPLEX #6 syringe flash glucose scanning reader #1 ea 11/28/20 01/22/21 Rx flash glucose sensor #6 ea 11/28/20 01/22/21 Rx hydrochlorothiazide 25 mg tablet 12.5 mg PO DAILY #90 tablet 11/28/20 02/05/21 Rx metformin 1,000 mg tablet 1,000 mg PO BID #180 tablet 11/28/20 02/05/21 Rx empagliflozin 10 mg tablet 10 mg PO DAILY #90 tablet 12/18/20 02/05/21 Rx atorvastatin 40 mg PO HS 01/24/21 02/05/21 History metoprolol tartrate 100 mg PO BID 01/24/21 01/24/21 History pantoprazole 40 mg tablet,delayed 40 mg PO HS #30 tablet 01/26/21 02/05/21 Rx release sertraline 100 mg t
[2021-02-05 08:07] VITALS: BP 94/51; PULSE 55; RESP 18; O2SAT 97
[2021-02-05 08:17] VITALS: BP 97/60; PULSE 56; RESP 17; O2SAT 96
[2021-02-05 08:27] VITALS: BP 113/61; PULSE 51; RESP 14; O2SAT 96
[2021-02-05 08:47] LABS: Glucose Point of Care 110 (65-105)
== END 2021-02-05 08:44 | disposition home or self-care (01) ==
PROVIDERS: PCP Family Medicine; Visit Provider Internal Medicine Gastroenterology
PROC: 0DJ08ZZ Inspection of Upper Intestinal Tract, Via Natural or Artificial Opening Endoscopic (ICD-10-PCS; CPT 43235; principal; 2021-02-05 08:00)
DX: R11.2 Nausea with vomiting, unspecified (principal); K21.00 Gastro-esophageal reflux disease with esophagitis, without bleeding; K29.50 Unspecified chronic gastritis without bleeding; E11.9 Type 2 diabetes mellitus without complications; I48.91 Unspecified atrial fibrillation; I25.10 Atherosclerotic heart disease of native coronary artery without angina pectoris; F32.0 Major depressive disorder, single episode, mild; Z86.73 Personal history of transient ischemic attack (TIA), and cerebral infarction without residual deficits; Z79.01 Long term (current) use of anticoagulants; Z79.82 Long term (current) use of aspirin; Z79.4 Long term (current) use of insulin; Z79.84 Long term (current) use of oral hypoglycemic drugs; Z95.1 Presence of aortocoronary bypass graft
CPT/HCPCS: 43239; 82948; 88305; 88312; C9803; J2001; J2704; J7120; U0003; U0005

== ENCOUNTER 2021-02-14 11:45 | Outpatient (CLI) | payer MEDICARE, SELFPAY ==
[2021-02-14 12:03] LABS: Basophils Absolute Auto 0.1 K/mm3 (0.0-0.1); Basophils Percent Auto 0.7 % (0.2-1.2); Eosinophils Percent Auto 9.4 % (0-4.4); Hematocrit 37.3 % (42.0-52.0); Hemoglobin 11.8 g/dL (14.0-18.0); Immature Granulocyte Absolute 0.05 K/mm3 (0.00-0.031); Immature Granulocyte Percent A 0.5 % (0-0.5); Immature Reticulocyte Fraction 17.6 % (3.0-15.9); Lymphocytes Absolute Auto 2.01 K/mm3 (0.9-3.2); Lymphocytes Percent Auto 18.8 % (18.3-44.2); Mean Corpuscular HGB Conc 31.6 g/dl (32-36); Mean Corpuscular Volume 85.4 fl (80-100); Mean Platelet Volume 9.3 fl (7.4-10.4); Monocytes Percent Auto 8.9 % (2.6-8.5); Neutrophils Absolute Auto 6.6 K/mm3 (1.3-6.7); Neutrophils Percent Auto 61.7 % (45.5-73.1); Platelet Count Result 301 k/mm3 (150-375); Red Blood Count 4.37 M/mm3 (4.6-6.20); Red Cell Distribution Width 16.8 % (11.5-14.5); Reticulocyte Percent 1.29 % (0.7-4.3); Reticulocytes Absolute 0.06 B/L (32.2-175.7); White Blood Count 10.7 K/mm3 (4.5-10.0)
[2021-02-14 16:47] LABS: Alanine Aminotransferase 38 U/L (4-50); Albumin Level 4.1 g/dL (3.5-5.1); Alkaline Phosphatase 139 U/L (38-126); Anion Gap 6 mmol/L (8-16); Aspartate Amino Transferase 43 U/L (17-59); Bilirubin,Total 0.3 mg/dL (0.2-1.3); Blood Urea Nitrogen 23 mg/dL (9-20); Calcium 9.6 mg/dL (8.4-10.2); Carbon Dioxide 29 mmol/L (22-30); Chloride 103 mmol/L (98-107); Estimated Glomerular Filt Rate 59; Glucose 135 mg/dL (75-110); Lactate Dehydrogenase 490 U/L (313-618); Potassium 4.4 mmol/L (3.4-5.0); Sodium 138 mmol/L (137-145)
[2021-02-14 16:59] LABS: Iron 43 ug/dL (49-181)
[2021-02-14 17:10] LABS: Percent Iron Saturation 10 % (20-50)
[2021-02-14 17:53] LABS: Folic Acid 15.7 ng/mL (2.76->20)
== END 2021-02-14 11:46 | disposition home or self-care (01) ==
PROVIDERS: PCP Family Medicine; Visit Provider Internal Medicine Hematology & Oncology
DX: D64.9 Anemia, unspecified (principal)
CPT/HCPCS: 36415; 80053; 82607; 82728; 82746; 83540; 83550; 83615; 85025; 85046

== ENCOUNTER 2021-02-21 07:43 | Outpatient (RCR) | payer MEDICARE, SELFPAY ==
[2021-02-21 12:30] LABS: IFOB Positive Control Positive; Immunochemical Fecal Occult Bl Positive (N)
== END 2021-02-21 08:00 | disposition home or self-care (01) ==
LOC: ANHLAB 07:43
PROVIDERS: PCP Family Medicine; Visit Provider Internal Medicine Hematology & Oncology
DX: D64.9 Anemia, unspecified (principal)
CPT/HCPCS: 82274

== ENCOUNTER 2021-06-26 20:34 | Inpatient (IN) | payer MEDICARE, SELFPAY ==
--- NOTE | ~2021-06-26 | CT_ITS ---
EXAMINATION: CT brain wo con DATE: 06/27/2021 01:22 INDICATION: Head injury. TECHNIQUE: Computed tomography (CT) of the head was performed without intravenous contrast. The mA wa s adjusted according to patient size. Iterative reconstruction technique was employed. The dose-lengt h product was 605.33 mGy-cm. COMPARISON: Head CT 01/21/2021 FINDINGS: There are scattered areas of low attenuation in the cerebral white matter. There is an old lacunar infarct in left lentiform nucleus. There is no intracranial hemorrhage, acute infarction, or abnormal intracranial mass lesion. The ventricles are normal in size. The orbits are normal. There is mucosal thickening in the paranasal sinuses. There is thickening and sclerosis of some of the septa in the left ethmoid sinuses, consistent with chronic sinusitis. There is a trace right mastoid effusi on. IMPRESSION: 1. Old lacunar infarct in left lentiform nucleus. 2. Stable moderate nonspecific cerebral white matter disease, which likely represents chronic small v essel ischemic disease. 3. Chronic sinusitis. Reviewed, dictated and finalized at location A. IMPRESSION: 1. Old lacunar infarct in left lentiform nucleus. 2. Stable moderate nonspecific cerebral white matter disease, which likely repr esents chronic small vessel ischemic disease. 3. Chronic sinusitis.
--- NOTE | ~2021-06-26 | CT_ITS ---
EXAMINATION: CT hip RT w con DATE: 06/27/2021 01:23 INDICATION: Right hip injury. TECHNIQUE: Computed tomography (CT) of the right hip was performed without intravenous contrast. Auto mated exposure control and iterative reconstruction technique were employed. The dose-length product was 431.60 mGy-cm. COMPARISON: Pelvis and right hip radiographs 01/20/2021, 06/27/2021 FINDINGS: There is a comminuted basicervical fracture of right femoral neck. The main distal fracture fragment demonstrates impaction and external rotation. There is moderate right hip osteoarthritis. T here is a hematoma in right gluteus milagro muscle. Arterial blushes of contrast in this area are fabby picious for active bleeding. There are widespread arterial calcifications. IMPRESSION: 1. Comminuted basicervical fracture of right femoral neck. 2. Moderate right hip osteoarthritis. 3. Hematoma in right gluteus milagro muscle with blushes of arterial contrast suspicious for active b leeding. Reviewed, dictated and finalized at location A. IMPRESSION: 1. Comminuted basicervical fracture of right femoral neck. 2. Moderate right hip osteoarthritis. 3. Hematoma in right gluteus milagro muscle with blushes of arterial contrast s uspicious for active bleeding.
--- NOTE | ~2021-06-26 | CT_ITS ---
EXAMINATION: CT cervical spine wo con DATE: 06/27/2021 01:23 INDICATION: Neck injury. TECHNIQUE: Computed tomography (CT) of the cervical spine was performed without intravenous contrast. Automated exposure control and iterative reconstruction technique were employed. The dose-length pro duct was 428.98 mGy-cm. COMPARISON: None FINDINGS: Bone alignment is normal. There is mild chronic anterior wedging of T1 vertebral body. Ther e is mildly decreased disc height at C6-C7. The following disc levels are specifically discussed: C2-C3: There is mild left uncovertebral joint osteoarthritis. There is ankylosis of right uncovertebr al joint with mild hypertrophy. There is mild left facet joint osteoarthritis. There is ankylosis of right facet joint with moderate hypertrophy. There is mild right neural foraminal stenosis. There is no central canal stenosis. C3-C4: There is severe bilateral uncovertebral joint osteoarthritis. There is moderate bilateral face t joint osteoarthritis. There is mild bilateral neural foraminal stenosis. There is mild central liya l stenosis. C4-C5: There is moderate bilateral uncovertebral joint osteoarthritis. There is mild bilateral facet joint osteoarthritis. There is mild bilateral neural foraminal stenosis. There is mild central canal stenosis. C5-C6: There is severe right and moderate left uncovertebral joint osteoarthritis. There is moderate right and severe left facet joint osteoarthritis. There is mild right neural foraminal stenosis. Ther e is mild central canal stenosis. C6-C7: There is moderate bilateral uncovertebral joint osteoarthritis. There is mild bilateral facet joint osteoarthritis. There is mild bilateral neural foraminal stenosis. There is mild central canal stenosis. C7-T1: There is no uncovertebral joint osteoarthritis. There is moderate bilateral facet joint osteoa rthritis. There is no neural foraminal stenosis. There is mild central canal stenosis. IMPRESSION: 1. No acute fracture. 2. Mild cervical spondylosis. Reviewed, dictated and finalized at location A.
--- NOTE | ~2021-06-26 | XR_ITS ---
XR surgery orthopedic 06/28/2021 16:43 Indication: Right hip gamma nail placement Procedure: 4 fluoroscopic views of the right hip. 750 seconds of fluoroscopy. Comparison: 06/27/2021 Findings: Status post intraoperative fixation of right femoral neck fracture with gamma nail. Fractur e fragments in anatomic alignment post reduction. There is a single distal interlocking screw in the femur. Impression: 1: Anatomic alignment of right femoral neck fracture post reduction with gamma nail. Reviewed, dictated and finalized at location A. Impression: 1: Anatomic alignment of right femoral neck fracture post reduction with gamma nail.
--- NOTE | ~2021-06-26 | XR_ITS ---
EXAMINATION: XR chest 2V DATE: 06/27/2021 14:15 INDICATION: History of hypertension TECHNIQUE: AP and lateral views of the chest are obtained. COMPARISON: 12/01/2020 FINDINGS: The lungs are free of acute opacities. There is no pleural effusion or pneumothorax. The he art size is normal. There are bridging osteophytes at multiple levels in the spine, consistent with d iffuse idiopathic skeletal hyperostosis (DISH). Median sternotomy wires and mediastinal surgical clip s are seen, likely from prior coronary artery bypass grafting. Surgical clips in the right upper quad rant are likely from prior cholecystectomy. IMPRESSION: 1. No acute cardiopulmonary abnormality. Reviewed, dictated and finalized at location B.
--- NOTE | ~2021-06-26 | XR_ITS ---
EXAMINATION: XR hip RT 2V w AP pelvis DATE: 06/27/2021 07:07 INDICATION: Right hip fracture. TECHNIQUE: An anteroposterior view pelvis and 3 views of right hip were obtained. COMPARISON: Right hip CT 06/27/2021 FINDINGS: There is a basicervical fracture of right femoral neck. The distal fracture fragment demons trates impaction and external rotation. There is moderate right hip osteoarthritis. There is mild lef t hip osteoarthritis. There is moderate lumbar spondylosis. IMPRESSION: 1. Basicervical fracture of right femoral neck. 2. Moderate right hip osteoarthritis and mild left hip osteoarthritis. Reviewed, dictated and finalized at location A.
[2021-06-26 20:47] VITALS: BP 149/83; PULSE 20; RESP 18; TEMP 36.8; O2SAT 97
--- NOTE | 2021-06-26 21:27 | ECG_ITS ---
Measurements Intervals [place] Rate: 61 P: 53 OR: 210 QRS: 72 QRSD: 125 T: -5 QT: 442 QTc: 448 Interpretive Statements SINUS RHYTHM BORDERLINE AV CONDUCTION DELAY RIGHT BUNDLE BRANCH BLOCK ABNORMAL ECG Electronically Signed On 06-27-2021 6:07:03 CDT by Murali Jc D.O.
--- NOTE | 2021-06-26 21:33 | ED.LOWEXIN ---
HPI - Extremity Injury (Lower) General Chief Complaint: Extremity Injury, Lower Stated Complaint: FALL - RT HIP/ARM Time Seen by Provider: 06/26/21 21:13 History of Present Illness HPI Narrative: Patient presents with right hip pain. Patient reports he was bringing in garbage cans. He was walking up the driveway when he tripped on his feet landed on his bottom/right hip and then fell backwards striking the back of his head. Denies any loss of consciousness he does report he is on Xarelto. Reports his primary area of pain is his right hip. Denies any focal numbness or weakness denies any change in vision. Denies any prodrome such as chest pain shortness of breath or lightheadedness prior to the fall. Related Data Home Medications Medication Instructions Recorded Confirmed isosorbide dinitrate 20 mg PO TID 09/25/19 06/14/21 Xarelto 20 mg PO QACDINNER 11/09/19 06/14/21 aspirin [Adult Low Dose Aspirin] 81 mg PO DAILY 11/09/19 06/14/21 linagliptin 5 mg tablet 5 mg PO QACDINNER 04/04/20 06/14/21 metoprolol tartrate 100 mg PO BID 01/24/21 06/14/21 Allergies Allergy/AdvReac Type Severity Reaction Status Date / Time cyclobenzaprine AdvReac Confusion Verified 06/26/21 20:53 [From Flexeril] tramadol AdvReac Confusion Verified 06/26/21 20:53 Review of Systems Review of Systems: CONSTITUTIONAL: Denies fever, chills, or sweats. EYES: Denies visual changes, redness, or discharge. ENT: Denies rhinorrhea, congestion, sore throat, or otalgia. CARDIOVASCULAR: Denies chest pain, palpitations, or edema. RESPIRATORY: Denies cough or dyspnea. GASTROINTESTINAL: Denies abdominal pain, nausea, vomiting, or diarrhea. GENITOURINARY: Denies dysuria or hematuria. SKIN: Denies rash or itching. MUSCULOSKELETAL: Denies back pain, or myalgia. NEUROLOGIC: Denies headache, numbness, dizziness, or weakness. PSYCHIATRIC: Denies anxiety or depression. All systems reviewed & are unremarkable except as noted in HPI and below PMFSH Past Medical History Medical History A-fib Atherosclerotic heart disease of [place] coronary artery without angina pectoris BMI 27.0-27.9,adult BMI 28.0-28.9,adult BMI 29.0-29.9,adult BMI 31.0-31.9,adult Bronchitis Cerebrovascular accident (CVA) Coronary artery disease Current mild episode of major depressive disorder Dementia Hiatal hernia with GERD Melena Nausea and vomiting in adult Screen for colon cancer Type 2 diabetes mellitus without complications Surgical History Surgical History Hx of CABG Family History Family History Father Hypertension Mother Cerebrovascular accident Social History Social History Smoking status: Never smoker Second hand tobacco smoke exposure: Yes Alcohol intake: current Alcohol use details: RARE Substance use: never Substance use type: does not use Additional living arrangements comments: LIVES W/ , [place] Additional occupation/education comments: [employer] Gender identity (if verbalized by the patient): Male Spiritual care concerns: No Agree to blood products: No Exam Narrative: GENERAL: Well-appearing, well-nourished, and in no acute distress. HEAD: Normocephalic, atraumatic. No open or draining wounds EYES: PERRLA and EOMI. ENT: Nares clear, no rhinorrhea or epistaxis. Mucous membranes moist. NECK: Supple. No masses. No JVD CHEST: Clear to auscultation. No respiratory distress. No wheezes rales or rhonchi HEART: Regular rate and rhythm. No murmur heard. Normal peripheral pulses. ABDOMEN: Soft, nontender, nondistended, normal active bowel sounds. EXTREMITIES: Tenderness on the right hip right lower extremity is shortened and externally rotated SKIN: Warm, dry, no rash. NEURO:
[2021-06-26 22:32] VITALS: BP 156/60; PULSE 63; RESP 15; O2SAT 94
[2021-06-26 22:46] LABS: Basophils Percent Auto 0.4 % (0.2-1.2); Eosinophils Absolute Auto 0.4 K/mm3 (0-0.3); Eosinophils Percent Auto 3.5 % (0-4.4); Hematocrit 34.2 % (42.0-52.0); Immature Granulocyte Absolute 0.07 K/mm3 (0.00-0.031); Immature Granulocyte Percent A 0.7 % (0-0.5); Lymphocytes Absolute Auto 1.32 K/mm3 (0.9-3.2); Lymphocytes Percent Auto 13.2 % (18.3-44.2); Mean Corpuscular HGB Conc 32.2 g/dl (32-36); Mean Corpuscular Hemoglobin 29.4 pg (26-34); Mean Corpuscular Volume 91.4 fl (80-100); Mean Platelet Volume 9.8 fl (7.4-10.4); Monocytes Absolute Auto 0.8 K/mm3 (0.1-0.6); Monocytes Percent Auto 7.7 % (2.6-8.5); Neutrophils Absolute Auto 7.4 K/mm3 (1.3-6.7); Neutrophils Percent Auto 74.5 % (45.5-73.1); Platelet Count Result 223 k/mm3 (150-375); Red Blood Count 3.74 M/mm3 (4.6-6.20); Red Cell Distribution Width 14.8 % (11.5-14.5)
[2021-06-26 22:49] LABS: INR 1.6; Prothrombin Time 18.3 Seconds (11.1-14.7)
[2021-06-26 22:50] LABS: Partial Thromboplastin Time 31.5 SECONDS (22.3-36.8)
[2021-06-26 22:51] LABS: Alanine Aminotransferase 34 U/L (4-50); Albumin Level 3.6 g/dL (3.5-5.1); Alkaline Phosphatase 163 U/L (38-126); Anion Gap 11 mmol/L (8-16); Aspartate Amino Transferase 37 U/L (17-59); Bilirubin,Total 0.2 mg/dL (0.2-1.3); Blood Urea Nitrogen 29 mg/dL (9-20); Calcium 9.4 mg/dL (8.4-10.2); Carbon Dioxide 23 mmol/L (22-30); Chloride 103 mmol/L (98-107); Estimated CRCL calculation 67 ml/min; Estimated Glomerular Filt Rate > 60; Glucose 420 mg/dL (65-110); Potassium 4.5 mmol/L (3.4-5.0); Sodium 137 mmol/L (137-145)
[2021-06-26] MEDS: MORPHINE SULFATE (*CRX) 4 MG/ML INJ IV PUSH (23:58)
[2021-06-27] VITALS (8 sets, daily range): BP systolic 143–177; BP diastolic 63–86; PULSE 62–68; RESP 18–21; TEMP 36.7; O2SAT 90–98; BMI 27.8
[2021-06-27] MEDS: MORPHINE SULFATE (*CRX) 4 MG/ML INJ IV PUSH ×3 (03:48→09:42)
[2021-06-27 09:18] LABS: Glucose Point of Care 316 mg/dl (65-105)
--- NOTE | 2021-06-27 09:52 | PC.NURSE ---
called to give report on Pt. Was told by Sonal that she just found the SBAR and gave it to the nurse and will have her call me.
--- NOTE | 2021-06-27 10:04 | PCOTNOTE ---
Awaiting ortho consult and WB status to be entered in order to complete Occupational Therapy evaluation, will follow.
--- NOTE | 2021-06-27 10:44 | ADMGEN ---
This patient, Vidal Chaudhary, was admitted to 2 Medical Room 240-. Patient/family oriented to hospital policies and general routines including ID bracelet, bed and alarms, visiting hours, pain management, procedures, bathroom and other care routines, personal items, smoking policy, room service/diet, and visiting hours. Information on how to activate the Rapid Response Team has been discussed. Patient/Family are encouraged to report perceived risks to care and to ask questions if they do not understand what they are told or what they should do.
--- NOTE | 2021-06-27 11:11 | PM.IMHP ---
H&P: HPI History of Present Illness Date/Time: 06/27/21 11:11 <DIANN Herndon - Last Filed: 06/27/21 15:25> Chief Complaint: This 75 year old male patient with a significant PMH of Chronic Atrial Fibrillation on Xarelto prophylaxis, CVA, CAD with ID and subsequent 4 vessel CABG, DM, HTN, HLD, GERD, Dementia and most recent Melena in 02/2021 presented to the ER last evening VIA EMS after sustaining a Ground Level Fall and having acute right hip pain. The patient endorses that he was taking out his trash at approximately 1800 last evening, lost his footing and fell. He reports that he has been having increased falls since he has been battling dementia and this is the reported 3rd in the past few months from losing balance. When he fell last evening, he landed onto his right hip resulting in injury, and then the patient's head also hit the ground without any resulting LOC, or any signs of external trauma. He denies any chest pain, palpitations, weakness, dizziness or lightheadedness prior to his fall.There were failed attempts at getting up on his own and he then called EMS for help. In the ED, the pt. was found to have a comminuted basicervical fracture of the right femoral neck and a hematoma in the right gluteus milagro muscle. CT of the head and C-spine were negative. Orthopedics, Dr. Duggan was consulted to see pt for surgical management. The patient is therefore admitted to the hospital. Currently the patient denies any distal numbness or tingling in the right leg, and he reports that the pain medication is controlling his pain. He remains on bedrest currently and will be NPO after midnight. Most recently the patient has had Melena found in his stool in February 2021, and he did have a Colonoscopy that showed a few polyps, but no other acute findings. He will be having an upper endoscopy in the future. <DIANN Herndon - Last Filed: 06/27/21 15:25> Review of Systems Review of Systems: All systems reviewed & are unremarkable except as noted in HPI and below <DIANN Herndon - Last Filed: 06/27/21 15:25> Constitutional: Constitutional: Reports as per HPI, Denies lethargy, Denies night sweats and Denies weakness <DIANN Herndon - Last Filed: 06/27/21 15:25> Eyes: Eyes: Denies other visual disturbances and Denies spots in vision <DIANN Herndon - Last Filed: 06/27/21 15:25> ENT: Reports as per HPI <DIANN Herndon - Last Filed: 06/27/21 15:25> Cardiovascular: Cardiovascular: Denies chest pain, Denies leg edema, Denies lightheadedness and Denies palpitations <DIANN Herndon - Last Filed: 06/27/21 15:25> Respiratory: Respiratory: Reports as per HPI, Denies cough and Denies dyspnea on exertion <DIANN Herndon - Last Filed: 06/27/21 15:25> Gastrointestinal: Gastrointestinal: Reports as per HPI, Denies melena, Denies hematochezia, Denies nausea and Denies vomiting <ELIANA Herndon - Last Filed: 06/27/21 15:25> Genitourinary: Genitourinary: Denies no additional male genitourinary complaints, Denies as per HPI, Denies hematuria, Denies dysuria, Denies flank pain, Denies urinary frequency, Denies urinary hesitancy, Denies urinary incontinence and Denies urinary urgency <DIANN Herndon - Last Filed: 06/27/21 15:25> Musculoskeletal: Musculoskeletal: Reports no additional musculoskeletal complaints, Reports as per HPI, Denies back pain, Reports arthralgias and Denies neck pain <DIANN Herndon - Last Filed: 06/27/21 15:25> Neurologic: Reports as per HPI, Reports abnormal gait (From battling dementia ), Denies headache(s) and Denies numbness <DIANN Herndon - Last Filed: 06/27/21 15:25> Psychiatric: Psychiatric: Denies no additional psychiatric complaints, Denies as per HPI, Denies anxiety, Denies behavioral changes, Denies confusion, Denies depression, Denies homicidal ideation and Denies suicidal ideation <Sayra Marquez
[2021-06-27] MEDS: SODIUM CHLORIDE 0.9% IV 1,000 ML 125 ML IV CONT ×2 (11:41→20:11)
[2021-06-27] MEDS: INSULIN ASPART (*BKC) 100 UNITS/ML SUB-Q ×3 (11:53→23:05)
[2021-06-27 12:04] LABS: Glucose Point of Care 278 mg/dl (65-105)
--- NOTE | 2021-06-27 12:13 | PM.CNOR ---
Assessment and Plan Additional Plan 75 YO MALE WITH HX OF FALL AND NOW WITH RIGHT BASICERVICAL HIP FRACTURE. HE WILL NEED INSERTION OF GAMMA SHAILESH AND POSSIBLE PERCUTANEOUS PINNING FOR ROTATIONAL STABILITY ONCE HE IS CLEARED FOR SURGERY. WE DISCUSSED THE AFIB AND HIS MEDICATIONS ESPECIALLY THE XARELTO AND THE COMPLICATIONS OF BLEEDING AND HEMATOMA AND DVT. DISCUSSED NONOPERATIVE AND OPERATIVE TREATMENT OPTIONS WITH THE PATIENT. THE PATIENT'S QUESTIONS WERE ANSWERED. THE PATIENT DESIRES OPERATIVE TREATMENT. WE ALSO DISCUSSED THE POSSIBILITY OF DELAYED UNION AND NON UNION AND THE NEED FOR FURTHER SURGERY. WE ALSO DISCUSSED THE POSSIBILITY OF AVASCULAR NECROSIS TO THE FEMORAL HEAD AND THE NEED FOR FURTHER SURGERY WELL. DISCUSSED INSERTION OF GAMMA SHAILESH RIGHT HIP_WITH POSSIBLE PERCUTANEOUS PINNING . RISKS OF SURGERY INCLUDING BUT NOT LIMITED TO NEUROVASCULAR DAMAGE, WOUND COMPLICATIONS, BLOOD CLOT, PULMONARY EMBOLUS, STROKE, CA, ANESTHETIC RISKS UP TO AND INCLUDING WERE REVIEWED. CONTINUED PAIN AND POSSIBLE DYSFUNCTION WERE EXPLAINED. NO GUARANTEES WERE OFFERED. THE PATIENT UNDERSTANDS AND WISHES TO PROCEED. WE WILL PROCEED ONCE THE PATIENT IS CLEARED BY INTERNAL MEDICINE SERVICES History of Present Illness HPI Consult date: 06/27/21 Consult reason: fracture (RIGHT HIP FRACTURE) Chief complaint: femur fracture Narrative: ZEV WAS SEEN IN THE ED THIS FICTION AND NONFICTION WRITER PROSE DUE TO A FALL AND NOW HE HAS A RIGHT BASICERVICAL HIP FRACTURE WITH SOME COMMINUTION TO THE FEMORAL NECK. HE DENIES ANY OTHER EXTREMITY PAIN. HE DENIES ANY NECK OR BACK PAIN. HE DENIES ANY LOC OR ANY SOB OR CHEST PAIN. Review of Systems Review of Systems: All systems reviewed & are unremarkable except as noted in HPI and below (history) Cardiovascular: Cardiovascular: Reports as per HPI, Reports no additional cardiovascular complaints and Denies chest pain Respiratory: Respiratory: Reports as per HPI, Reports no additional respiratory complaints, Denies cough and Denies dyspnea Gastrointestinal: Gastrointestinal: Reports no additional gastrointestinal complaints, Denies abdominal pain, Denies dysphagia and Denies heartburn Musculoskeletal: Musculoskeletal: Reports as per HPI, Denies back pain, Reports limited range of motion, Denies neck pain and Denies numbness Psychiatric: Psychiatric: Denies confusion PMFSH Past Medical History Medical History A-fib Atherosclerotic heart disease of [place] coronary artery without angina pectoris BMI 27.0-27.9,adult BMI 28.0-28.9,adult BMI 29.0-29.9,adult BMI 31.0-31.9,adult Bronchitis Cerebrovascular accident (CVA) Coronary artery disease Current mild episode of major depressive disorder Dementia Hiatal hernia with GERD Melena Nausea and vomiting in adult Screen for colon cancer Type 2 diabetes mellitus without complications Surgical History Surgical History Hx of CABG Family History Family History Father Hypertension Mother Cerebrovascular accident Social History Social History Smoking status: Never smoker Second hand tobacco smoke exposure: Yes Alcohol intake: former Alcohol use details: RARE Substance use: never Substance use type: does not use Additional living arrangements comments: LIVES W/ , [facility] Additional occupation/education comments: [employer] Gender identity (if verbalized by the patient): Male Spiritual care concerns: No Agree to blood products: No Meds Home Medications and Allergies Home Medications Medication Instructions Recorded Confirmed Type isosorbide dinitrate 20 mg PO TID 09/25/19 06/27/21 History Xarelto 20 mg PO QACDINNER 11/09/19 06/27/21 History aspirin [Adult Low Dose Aspiri
--- NOTE | 2021-06-27 13:00 | PCPTNOTE ---
PT jillian on hold awaiting surgery and postop orders from Ortho .
[2021-06-27] MEDS: METOPROLOL TARTRATE 50 MG TAB 100 MG PO ×2 (13:15→22:08)
[2021-06-27] MEDS: ISOSORBIDE DINITRATE 20 MG TABLET PO ×2 (13:16→17:10)
[2021-06-27] MEDS: lisinopriL 20 MG TABLET 40 MG PO (13:16)
[2021-06-27 13:48] LABS: Hemoglobin A1C 8.2 % (<5.7)
--- NOTE | 2021-06-27 14:22 | PCOTNOTE ---
Occupational Therapy orders are on hold until after surgery and weight bearing status are entered. Will follow.
[2021-06-27 17:02] LABS: Glucose Point of Care 341 mg/dl (65-105)
[2021-06-27] MEDS: SERTRALINE HCL 50 MG TABLET 100 MG BY MOUTH (17:10)
[2021-06-27] MEDS: LORazepam INJ (*CRX) 2 MG/ML VIAL 0.5 MG IV PUSH (18:40)
[2021-06-27] MEDS: DONEPEZIL HCL 5 MG TABLET PO (22:08)
[2021-06-27] MEDS: PANTOPRAZOLE 40 MG TABLET PO (22:09)
[2021-06-27] MEDS: ATORVASTATIN 40 MG TABLET BY MOUTH (22:09)
[2021-06-27] MEDS: INSULIN GLARGINE (*BKC) 100 UNITS/ML 35 UNITS SUB-Q (22:44)
[2021-06-27 22:50] LABS: Glucose Point of Care 390 mg/dl (65-105)
[2021-06-28] VITALS (19 sets, daily range): BP systolic 110–177; BP diastolic 50–99; PULSE 58–77; RESP 14–18; TEMP 36.2–37.4; O2SAT 93–100; BMI 27.8
[2021-06-28] MEDS: LORazepam INJ (*CRX) 2 MG/ML VIAL 0.5 MG IV PUSH ×2 (03:59→21:55)
[2021-06-28] MEDS: SODIUM CHLORIDE 0.9% IV 1,000 ML 125 ML IV CONT ×2 (04:11→13:08)
--- NOTE | 2021-06-28 07:29 | PCOTNOTE ---
Occupational Therapy orders are on hold on this date until after surgery and weight bearing status are entered. Will follow.
[2021-06-28] MEDS: SERTRALINE HCL 50 MG TABLET 100 MG BY MOUTH ×2 (09:29→18:31)
[2021-06-28] MEDS: lisinopriL 20 MG TABLET 40 MG PO (09:30)
[2021-06-28] MEDS: hydroCHLOROthiazide 12.5 MG CAPSULE PO (09:30)
[2021-06-28 09:43] LABS: Glucose Point of Care 199 mg/dl (65-105)
[2021-06-28 11:24] LABS: Glucose Point of Care 223 mg/dl (65-105)
[2021-06-28] MEDS: METOPROLOL TARTRATE 50 MG TAB 100 MG PO ×2 (11:43→20:08)
--- NOTE | 2021-06-28 13:17 | PCPTNOTE ---
Stopped current PT orders due to patient to have surgical intervention, will await new orders with updated WB status following surgery.
--- NOTE | 2021-06-28 13:23 | PC.NURSE ---
To OR per bed, IV saline locked. Report given to SHALOM Henry.
[2021-06-28] MEDS: LACTATED RINGERS 1,000 ML 30 ML IV CONT ×2 (13:36→16:58)
--- NOTE | 2021-06-28 13:52 | PM.IMPN ---
Progress Note: A&P Assessment and Plan (1) Femoral neck fracture: Onset Date: 06/2021 Qualifiers: Encounter type: initial encounter Fracture type: closed Laterality: right Qualified Code(s): S72.001A - Fracture of unspecified part of neck of right femur, initial encounter for closed fracture Code(s): S72.009A - Fracture of unspecified part of neck of unspecified femur, initial encounter for closed fracture Status: Acute Assessment and Plan: Orthopedics consulted, Dr. Duggan Plan for insertion of gamma SHAILESH with possible nailing NPO, plan for surgery today Bedrest Pain control with Morphine Hold ASA and Xarelto (2) Fall: Onset Date: 06/2021 Qualifiers: Encounter type: initial encounter Qualified Code(s): W19.XXXA - Unspecified fall, initial encounter Code(s): W19.XXXA - Unspecified fall, initial encounter Status: Acute Assessment and Plan: 2/2 dementia Fall precautions PT/OT to eval and treat post op May need rehad at d/c Neurology referral at discharge is recommended Continue Donepezil 5 mg HS (3) A-fib: Onset Date: Unknown Qualifiers: Atrial fibrillation type: unspecified chronic Qualified Code(s): I48.20 - Chronic atrial fibrillation, unspecified Code(s): I48.91 - Unspecified atrial fibrillation Status: Chronic Assessment and Plan: Holding ASA and Xarelto for OR Restart at recommendation of Orthopedics Rate controlled DVT prophylaxis with SCDs for now Continue Metoprolol Tartrate 10 mg BID (4) Diabetes mellitus: Onset Date: Unknown Qualifiers: Diabetes mellitus type: type 2 Diabetes mellitus rn long term care insulin use: with rn long term care use Code(s): E11.9 - Type 2 diabetes mellitus without complications Status: Chronic Assessment and Plan: Hold all oral medications SSI, Accu Checks AC and HS Continue Lantus 35 units HS HgbA1c 8.2 ADA Dit. (5) Hyperlipidemia: Onset Date: Unknown Qualifiers: Hyperlipidemia type: unspecified Qualified Code(s): E78.5 - Hyperlipidemia, unspecified Code(s): E78.5 - Hyperlipidemia, unspecified Status: Chronic Assessment and Plan: Continue Atorvastatin 40 mg po HS (6) Hypertension: Onset Date: Unknown Qualifiers: Hypertension type: unspecified Qualified Code(s): I10 - Essential (primary) hypertension Code(s): I10 - Essential (primary) hypertension Status: Chronic Assessment and Plan: Stable Continue HCTZ 12.5 mg po daily Continue Isosorbide dinitrate 20 mg po TID Continue Quinapril 40 mg po daily Monitor (7) GERD (gastroesophageal reflux disease): Onset Date: Unknown Qualifiers: Esophagitis presence: esophagitis presence not specified Qualified Code(s): K21.9 - Gastro-esophageal reflux disease without esophagitis Code(s): K21.9 - Gastro-esophageal reflux disease without esophagitis Status: Chronic Assessment and Plan: Continue Pantoprazole 40 mg po HS (8) Melena: Onset Date: 02/2021 Code(s): K92.1 - Melena Status: Resolved Assessment and Plan: Recently found in February 2021 Colonoscopy negative Plan for EGD o/p On chronic Xarelto and ASA Monitor stools for any bleeding Monitor H/H daily (9) DVT prophylaxis: Onset Date: ~06/27/21 Code(s): Z29.9 - Encounter for prophylactic measures, unspecified Status: Acute Assessment and Plan: SCD's Holding Xarelto surgery Additional Plan CODE STATUS: DNR Subjective Date/time seen: 06/28/21 13:52 Interval history: Pt seen and evaluated; labs, vs and diagnostic reports reviewed; no acute events overnight; pt denies any new complaints Review of Systems Review of Systems: All systems reviewed & are unremarkable except as noted in HPI and below Exam Const: General: no acute distress, alert and awake Orientation/co
--- NOTE | 2021-06-28 14:06 | WPDANESEPPF ---
Anes - Initial Pre Proc Eval Procedure: Operation Date: 06/28/21 14:30 Proposed Procedures p Right Hip Gamma Nail - Héctor Duggan MD s Possible Percutaneous Pinning - Héctor Duggan MD Date/Time: 06/28/21 14:06 Surgeon: Telly Benitez MD Pre Op Diagnosis: femur fracture Patient Data Age: 75 Gender: M Height: 1.8 m Weight: 90.5 kg Last Vital Signs Temp 37.4 C 06/28/21 13:28 Pulse 69 06/28/21 13:28 Resp 16 06/28/21 13:28 BP 167/60 H 06/28/21 13:28 Pulse Ox 95 06/28/21 13:28 Allergies Allergy/AdvReac Type Severity Reaction Status Date / Time cyclobenzaprine AdvReac Confusion Verified 06/26/21 20:53 [From Flexeril] tramadol AdvReac Confusion Verified 06/26/21 20:53 Home Medications Medication Instructions Recorded Confirmed Type isosorbide dinitrate 20 mg PO TID 09/25/19 06/27/21 History Xarelto 20 mg PO QACDINNER 11/09/19 06/27/21 History aspirin [Adult Low Dose Aspirin] 81 mg PO DAILY 11/09/19 06/27/21 History linagliptin 5 mg tablet 5 mg PO QACDINNER 04/04/20 06/27/21 History insulin lispro 200 unit/mL (3 mL) See Rx Instructions .ROUTE 11/09/20 06/27/21 Rx subcutaneous pen .COMPLEX #6 syringe flash glucose scanning reader #1 ea 11/28/20 06/27/21 Rx flash glucose sensor #6 ea 11/28/20 06/27/21 Rx empagliflozin 10 mg tablet 10 mg PO DAILY #90 tablet 12/18/20 06/27/21 Rx metoprolol tartrate 100 mg PO BID 01/24/21 06/27/21 History pantoprazole 40 mg tablet,delayed 40 mg PO HS #30 tablet 02/05/21 06/27/21 Rx release insulin glargine 100 unit/mL (3 35 unit SUB-Q HS #33 ml 03/01/21 06/27/21 Rx mL) subcutaneous pen sertraline 100 mg tablet See Rx Instructions .ROUTE 05/02/21 06/27/21 Rx .COMPLEX #180 tablet metformin 1,000 mg tablet 1,000 mg PO BID #180 tablet 05/23/21 06/27/21 Rx atorvastatin 40 mg tablet See Rx Instructions .ROUTE 05/24/21 06/27/21 Rx .COMPLEX #90 tablet insulin syringe-needle U-100 1 mL #100 each 06/04/21 06/27/21 Rx 31 gauge x 5/16 pen needle, diabetic 32 gauge x See Rx Instructions .ROUTE 06/04/21 06/27/21 Rx 1/6 .COMPLEX #100 syringe quinapril 40 mg tablet 40 mg PO DAILY #90 tablet 06/04/21 06/27/21 Rx hydrochlorothiazide 25 mg tablet 12.5 mg PO DAILY #90 tablet 06/12/21 06/27/21 Rx donepezil 5 mg tablet 5 mg PO QHS #30 tablet 06/14/21 06/27/21 Rx Laboratory Tests 06/27/21 06/27/21 06/27/21 14:26 16:31 22:41 POC Capillary Glucose 341 mg/dl H mg/dl 390 mg/dl H mg/dl (65-105) (65-105) Blood Type O Positive Antibody Screen Negative 06/28/21 06/28/21 09:35 11:19 POC Capillary Glucose 199 mg/dl H mg/dl 223 mg/dl H mg/dl (65-105) (65-105) Blood Type Antibody Screen Patient hx anesthesia problems: none Family hx anesthesia problems: none [facility] Past Medical History Medical History A-fib (Unknown) Atherosclerotic heart disease of [place] coronary artery without angina pectoris BMI 27.0-27.9,adult BMI 28.0-28.9,adult BMI 29.0-29.9,adult BMI 31.0-31.9,adult Bronchitis Cerebrovascular accident (CVA) Coronary artery disease Current mild episode of major depressive disorder Dementia Hiatal hernia with GERD Melena (02/2021) Nausea and vomiting in adult Screen for colon cancer Type 2 diabetes mellitus without complications Surgical History Surgical History Hx of CABG Family History Family History Father Hypertension Mother Cerebrovascular accident Social History Social History Smoking status: Never smoker Second hand tobacco smoke exposure: Yes Alcohol intake: former Alcohol use details: RARE Substance use: never Substance use type: does not use Additional living arrangements comments: LIVES W/
[2021-06-28] MEDS: TRANEXAMIC ACID 1,000MG/ISO100 1,000 MG/100 ML BAG 200 MG IVPB (14:28)
[2021-06-28] MEDS: ceFAZolin 2 GM/D5W 50 ML 2 GM/50 ML BAG IVPB ×2 (14:38→22:05)
--- NOTE | 2021-06-28 14:38 | WPDHPUPDATE1 ---
History and Physical Update Update Date/Time: 06/28/21 14:38 History and Physical has been reviewed, including an updated exam of the patient. There are NO changes in the patient's condition. Risks, benefits, and alternatives have been discussed and questions answered. Patient agrees to proceed with procedure.
[2021-06-28] MEDS: TRANEXAMIC ACID 1,000 MG/10 ML AMPUL 1000 MG IV PUSH (16:37)
--- NOTE | 2021-06-28 16:43 | P.OP_ITS ---
Procedure Note - Detailed Date of Procedure 06/28/21 Pre-op Diagnosis RIGHT FEMORAL NECK AND BASICERVICAL HIP FRACTURE Post-op Diagnosis same Procedure Performed INSERTION GAMMA SHAILESH AND CANNULATED SCREW RIGHT HIP FRACTURE Surgeon Héctor Duggan MD Anesthesia general Description of Procedure THE PATIENT WAS TAKEN TO THE OPERATING ROOM AND PLACED ON A FRACTURE TABLE AFTER GIVEN GENERAL ANESTHESIA. THE RIGHT LOWER EXTREMITY WAS PLACED IN A TRACTION BOOT AND USING SOME TRACTION AND INTERNAL ROTATION THE BASICERVICAL NECK AND FEMORAL NECK FRACTURE WERE REDUCED TO ANATOMIC POSITION. NEXT THE RIGHT LOWER EXTREMITY WAS PREPPED AND DRAPED IN THE STERILE FASHION. AN INCISION WAS MADE PROXIMAL TO THE TIP OF THE GREATER TROCHANTER AND DISSECTION CONTINUED TILL THE TIP OF THE GREATER TROCHANTER WAS PALPATED. A GUIDE PIN WAS PLACED DOWN THE FEMORAL CANAL AND PAST THE FRACTURE SITE. THIS WAS CHECKED ON FLUOROSCOPY AND FOUND TO BE IN GOOD POSITION. AN INITIAL REAMER WAS USED TO REAM THE FEMORAL CANAL. A 11 BY 180 MM GAMMA SHAILESH WAS INSERTED TILL THE CORRECT POSITION WAS IDENTIFIED ON XRAY. A GUIDE PIN WAS INSERTED THROUGH THE FEMORAL NECK AT [address] TILL IT REACHED THE TIP OF THE SUB CHONDRAL BONE SEEN ON XRAY. AFTER REAMING, LAG SCREW WAS INSERTED MEASURING 105 MM. XRAYS SHOWED IT TO BE IN GOOD POSITION. THE LAG SCREW WAS LOCKED PROXIMALLY WITH A LOCKING SCREW. NEXT A DISTAL LOCKING SCREW WAS PLACED ACROSS THE SHAILESH AND WAS IN GOOD POSITION ON XRAY. NEXT A SINGLE CANNULATED PARTIALLY THREADED SCREW WAS PLACED THROUGH THE FEMORAL NECK POSTERIOR TO THE GAMMA LAG SCREW FOR ROTATION STABILITY OF THE FEMORAL NECK FRACTURE. FLUOROSCOPY WAS USED TO CHECK THE STABILITY OF THE CONSTRUCT AND T HERE WAS GOOD STABILITY. THE TRACTION WAS RELEASED. THE WOUNDS WERE WASHED. THE DEEP FASCIA WAS REPAIRED WITH 0 VICRYL SUTURE, THE SUB CUTANEOUS LAYER WITH 2-0 VICRYL, AND THE SKIN WITH MARY JO. THE WOUNDS WERE WASHED AND THEN STERILE DRESSING WAS APPLIED. PATIENT WAS EXTUBATED AND SENT TO RECOVERY ROOM. Estimated Blood Loss 100 Drains No Complications No immediate complications Condition stable Disposition PACU
[2021-06-28 17:08] LABS: Glucose Point of Care 180 mg/dl (65-105)
[2021-06-28] MEDS: fentaNYL CITRATE INJ (*CRX) 100 MCG/2 ML VIAL 25 MCG IV PUSH ×4 (17:21→17:41)
[2021-06-28] MEDS: DOCUSATE SODIUM 100 MG CAPSULE PO (18:31)
[2021-06-28] MEDS: ISOSORBIDE DINITRATE 20 MG TABLET PO (18:31)
[2021-06-28] MEDS: KCL 20 MEQ/D5/0.45% SOD CHL 1,000 ML 80 ML IV CONT (18:31)
[2021-06-28] MEDS: INSULIN GLARGINE (*BKC) 100 UNITS/ML 35 UNITS SUB-Q (20:06)
[2021-06-28] MEDS: ATORVASTATIN 40 MG TABLET BY MOUTH (20:08)
[2021-06-28] MEDS: PANTOPRAZOLE 40 MG TABLET PO (20:08)
[2021-06-28] MEDS: DONEPEZIL HCL 5 MG TABLET PO (20:08)
[2021-06-28 20:18] LABS: Glucose Point of Care 305 mg/dl (65-105)
[2021-06-29] VITALS (7 sets, daily range): BP systolic 119–141; BP diastolic 49–67; PULSE 69–111; RESP 16–22; TEMP 36.4–37.1; O2SAT 93–100
[2021-06-29] MEDS: LORazepam INJ (*CRX) 2 MG/ML VIAL 0.5 MG IV PUSH ×2 (03:58→23:07)
[2021-06-29 05:39] LABS: Basophils Percent Auto 0.3 % (0.2-1.2); Eosinophils Absolute Auto 0.1 K/mm3 (0-0.3); Eosinophils Percent Auto 0.5 % (0-4.4); Hematocrit 30.6 % (42.0-52.0); Immature Granulocyte Absolute 0.07 K/mm3 (0.00-0.031); Immature Granulocyte Percent A 0.5 % (0-0.5); Lymphocytes Absolute Auto 0.98 K/mm3 (0.9-3.2); Lymphocytes Percent Auto 6.9 % (18.3-44.2); Mean Corpuscular HGB Conc 32.7 g/dl (32-36); Mean Corpuscular Hemoglobin 29.2 pg (26-34); Mean Corpuscular Volume 89.5 fl (80-100); Mean Platelet Volume 9.6 fl (7.4-10.4); Monocytes Absolute Auto 0.9 K/mm3 (0.1-0.6); Monocytes Percent Auto 6.5 % (2.6-8.5); Neutrophils Absolute Auto 12.1 K/mm3 (1.3-6.7); Neutrophils Percent Auto 85.3 % (45.5-73.1); Platelet Count Result 224 k/mm3 (150-375); Red Blood Count 3.42 M/mm3 (4.6-6.20); Red Cell Distribution Width 14.8 % (11.5-14.5); White Blood Count 14.1 K/mm3 (4.5-10.0)
[2021-06-29 05:46] LABS: Anion Gap 8 mmol/L (8-16); Blood Urea Nitrogen 22 mg/dL (9-20); Carbon Dioxide 20 mmol/L (22-30); Chloride 105 mmol/L (98-107); Estimated CRCL calculation 61 ml/min; Estimated Glomerular Filt Rate > 60; Glucose 292 mg/dL (65-110); Potassium 4.2 mmol/L (3.4-5.0); Sodium 133 mmol/L (137-145)
[2021-06-29 05:47] LABS: INR 1.1; Prothrombin Time 14.5 Seconds (11.1-14.7)
[2021-06-29] MEDS: ceFAZolin 2 GM/D5W 50 ML 2 GM/50 ML BAG IVPB ×2 (06:11→17:48)
[2021-06-29 06:42] LABS: Glucose Point of Care 269 mg/dl (65-105)
[2021-06-29] MEDS: INSULIN ASPART (*BKC) 100 UNITS/ML SUB-Q ×3 (08:18→18:21)
[2021-06-29] MEDS: lisinopriL 20 MG TABLET 40 MG PO (08:19)
[2021-06-29] MEDS: DOCUSATE SODIUM 100 MG CAPSULE PO ×2 (08:19→18:21)
[2021-06-29] MEDS: hydroCHLOROthiazide 12.5 MG CAPSULE PO (08:19)
[2021-06-29] MEDS: RIVAROXABAN 10 MG TABLET PO (08:20)
[2021-06-29] MEDS: METOPROLOL TARTRATE 50 MG TAB 100 MG PO ×2 (08:20→21:16)
[2021-06-29] MEDS: SERTRALINE HCL 50 MG TABLET 100 MG BY MOUTH ×2 (08:20→18:21)
[2021-06-29] MEDS: SODIUM CHLORIDE 0.9% IV 1,000 ML 50 ML IV CONT (08:24)
[2021-06-29] MEDS: ISOSORBIDE DINITRATE 20 MG TABLET PO ×3 (08:29→18:21)
--- NOTE | 2021-06-29 09:08 | PM.PNORT ---
Progress Note: A&P Assessment and Plan (1) Femoral neck fracture: Onset Date: 06/2021 Qualifiers: Encounter type: initial encounter Fracture type: closed Laterality: right Qualified Code(s): S72.001A - Fracture of unspecified part of neck of right femur, initial encounter for closed fracture Code(s): S72.009A - Fracture of unspecified part of neck of unspecified femur, initial encounter for closed fracture Status: Acute Assessment and Plan: POD #1: INSERTION GAMMA SHAILESH AND CANNULATED SCREW RIGHT HIP FRACTURE Continue PT/OT. NWB RLE. Walker. HIGH FALL RISK. Continue pain control, limit narcotics. Ice lateral hip. Incentive spirometry. SCDs. DVT prophylaxis. Xarelto resumed Post op day 2 - begin [place] Dressing changes. Dispo: Acute Rehab Subjective Subjective Date/Time Seen: 06/29/21 09:08 Post Op day: 1 Principal diagnosis: Right Hip Fracture Interval history: POD #1: INSERTION GAMMA SHAILESH AND CANNULATED SCREW RIGHT HIP FRACTURE No new complaints. Denies pain this AM. Sitting up in chair. Following commands with assessment. Confusion to situation, oriented to person, place, time. Review of Systems Constitutional: Constitutional: Reports as per HPI, Reports fatigue and Denies fever(s) Cardiovascular: Cardiovascular: Denies chest pain and Denies lightheadedness Respiratory: Respiratory: Reports no additional respiratory complaints and Denies cough Gastrointestinal: Gastrointestinal: Denies abdominal pain, Denies bloating, Denies nausea and Denies vomiting Genitourinary: Genitourinary: Reports no additional male genitourinary complaints Musculoskeletal: Musculoskeletal: Reports as per HPI Exam Const: General: comfortable and no acute distress Resp: Effort & Inspection: normal respiratory effort (nasal cannula O2 ) GI: Inspection: non-distended GI Palp: Yes Soft to palpation and No Tenderness to palpation present (GI) Skin: General skin exam: normal color Wounds: wounds noted (Right lateral hip- dressing c/d/i ) Neuro: General: No gait normal (NWB RLE ) Cognition (Neuro): normal cognition (answering questions appropriately, fatigued, some confusion to situatio) Speech: normal speech Extrem: Right lower extremity: hip/thigh Details: tenderness Location: of the hip Location: laterally, swelling Location: at the hip and abnormal ROM (limited due to recent fracture ), knee Details: normal to inspection and normal ROM; no tenderness and no swelling, lower leg (Negative Zack's Sign ), ankle (+ankle dorsiflexion/plantarflexion ) and foot (2+ pedal pulses ) Details: normal capillary refill and vascular exam Details: dorsalis pedis pulse present Psych: Other: Following commands, normal affect- some confusion to situation Objective Data Vital Signs Vital Signs: Vital Signs - 24 hr 06/28/21 11:43 06/28/21 13:28 06/28/21 16:58 Temperature 37.4 C 36.4 C L Pulse Rate 68 69 72 Respiratory Rate 16 16 Blood Pressure 167/60 H 137/99 H Pulse Oximetry 95 96 06/28/21 17:10 06/28/21 17:25 06/28/21 17:30 Temperature Pulse Rate 67 67 63 Respiratory Rate 16 18 16 Blood Pressure 124/77 153/56 H 139/50 L Pulse Oximetry 100 100 94 06/28/21 17:35 06/28/21 17:45 06/28/21 17:50 Temperature Pulse Rate 66 58 L 59 L Respiratory Rate 16 14 14 Blood Pressure 110/53 L 126/52 L 118/50 L Pulse Oximetry 100 100 100 06/28/21 18:05 06/28/21 18:20 06/28/21 18:35 Temperature 36.2 C L 36.2 C L Pulse Rate 58 L 66 64 Respiratory Rate 14 14 16 Blood Pressure 126/50 L 135/65 118/64 Pulse Oximetry 99 99 93 06/28/21 18:48 06/28/21 19:05 06/28/21 20:08 Temperature 36.5 C Pulse Rate 62 60 Respiratory Rate 17 Blood Pressure 139/77 Pulse Oximetry 93 100 06/28/21 20:35 06/28/21 20:55 06/28/21 23:40 Temperature 36.9 C 37.1 C Pulse Rate 66 70 Respiratory Rate 17 15 Blood Pressure 126/75 146/58 H Pulse Oximetry 100 97 97 06/29/21 04:21 06/29/21
[2021-06-29 12:12] LABS: Glucose Point of Care 336 mg/dl (65-105)
--- NOTE | 2021-06-29 14:35 | PM.IMPN ---
Progress Note: A&P Assessment and Plan (1) Femoral neck fracture: Onset Date: 06/2021 Qualifiers: Encounter type: initial encounter Fracture type: closed Laterality: right Qualified Code(s): S72.001A - Fracture of unspecified part of neck of right femur, initial encounter for closed fracture Code(s): S72.009A - Fracture of unspecified part of neck of unspecified femur, initial encounter for closed fracture Status: Acute Assessment and Plan: Orthopedics following, Dr. Duggan POD #1 s/p gamma SHAILESH and cannulated screw PT/OT, NWB RLE Analgesics prn Resumed Xarelto per ortho (2) Fall: Onset Date: 06/2021 Qualifiers: Encounter type: initial encounter Qualified Code(s): W19.XXXA - Unspecified fall, initial encounter Code(s): W19.XXXA - Unspecified fall, initial encounter Status: Acute Assessment and Plan: 2/2 dementia Fall precautions PT/OT May need rehab at d/c Neurology referral at discharge is recommended Continue Donepezil 5 mg HS (3) A-fib: Onset Date: Unknown Qualifiers: Atrial fibrillation type: unspecified chronic Qualified Code(s): I48.20 - Chronic atrial fibrillation, unspecified Code(s): I48.91 - Unspecified atrial fibrillation Status: Chronic Assessment and Plan: Resume Xarelto Restart at recommendation of Orthopedics Rate controlled DVT prophylaxis with SCDs for now Continue Metoprolol Tartrate 10 mg BID (4) Diabetes mellitus: Onset Date: Unknown Qualifiers: Diabetes mellitus type: type 2 Diabetes mellitus penitentiary insulin use: with penitentiary use Code(s): E11.9 - Type 2 diabetes mellitus without complications Status: Chronic Assessment and Plan: Hold all oral medications SSI, Accu Checks AC and HS Continue Lantus 35 units HS HgbA1c 8.2 ADA Diet (5) Hyperlipidemia: Onset Date: Unknown Qualifiers: Hyperlipidemia type: unspecified Qualified Code(s): E78.5 - Hyperlipidemia, unspecified Code(s): E78.5 - Hyperlipidemia, unspecified Status: Chronic Assessment and Plan: Continue Atorvastatin 40 mg po HS (6) Hypertension: Onset Date: Unknown Qualifiers: Hypertension type: unspecified Qualified Code(s): I10 - Essential (primary) hypertension Code(s): I10 - Essential (primary) hypertension Status: Chronic Assessment and Plan: Stable Continue HCTZ 12.5 mg po daily Continue Isosorbide dinitrate 20 mg po TID Continue Quinapril 40 mg po daily Monitor (7) GERD (gastroesophageal reflux disease): Onset Date: Unknown Qualifiers: Esophagitis presence: esophagitis presence not specified Qualified Code(s): K21.9 - Gastro-esophageal reflux disease without esophagitis Code(s): K21.9 - Gastro-esophageal reflux disease without esophagitis Status: Chronic Assessment and Plan: Continue Pantoprazole 40 mg po HS (8) Melena: Onset Date: 02/2021 Code(s): K92.1 - Melena Status: Resolved Assessment and Plan: Recently found in February 2021 Colonoscopy negative Plan for EGD o/p On chronic Xarelto and ASA Monitor stools for any bleeding Monitor H/H daily (9) DVT prophylaxis: Onset Date: ~06/27/21 Code(s): Z29.9 - Encounter for prophylactic measures, unspecified Status: Acute Assessment and Plan: SCD's Resume Xarelto (10) Dementia: Code(s): F03.90 - Unspecified dementia without behavioral disturbance Status: Acute Assessment and Plan: Continue Zolof Ativan prn Supportive care Additional Plan CODE STATUS: DNR Subjective Date/time seen: 06/29/21 14:35 Interval history: Pt seen and evaluated; nursing staff reports that pt is confused this a.m.; he doesn't remember having surgery; pt with recent diagnosis of dementia Review of Systems Review of Systems: All systems reviewe
[2021-06-29 18:09] LABS: Glucose Point of Care 289 mg/dl (65-105)
[2021-06-29] MEDS: diazePAM (*CRX) 5 MG TABLET PO (18:21)
[2021-06-29] MEDS: PANTOPRAZOLE 40 MG TABLET PO (21:16)
[2021-06-29] MEDS: INSULIN GLARGINE (*BKC) 100 UNITS/ML 35 UNITS SUB-Q (21:16)
[2021-06-29] MEDS: ATORVASTATIN 40 MG TABLET BY MOUTH (21:16)
[2021-06-29] MEDS: DONEPEZIL HCL 5 MG TABLET PO (21:16)
[2021-06-29 21:45] LABS: Glucose Point of Care 258 mg/dl (65-105)
[2021-06-29] MEDS: ACETAMINOPHEN 325 MG TABLET 650 MG PO (23:06)
[2021-06-30] VITALS (10 sets, daily range): BP systolic 125–159; BP diastolic 53–70; PULSE 58–72; RESP 16–22; TEMP 36–36.3; O2SAT 93–97
[2021-06-30] MEDS: SODIUM CHLORIDE 0.9% IV 1,000 ML 50 ML IV CONT (04:25)
[2021-06-30 06:14] LABS: Hematocrit 28.7 % (42.0-52.0); Hemoglobin 9.3 g/dL (14.0-18.0); Mean Corpuscular HGB Conc 32.4 g/dl (32-36); Mean Corpuscular Hemoglobin 28.7 pg (26-34); Mean Corpuscular Volume 88.6 fl (80-100); Mean Platelet Volume 9.7 fl (7.4-10.4); Platelet Count Result 216 k/mm3 (150-375); Red Blood Count 3.24 M/mm3 (4.6-6.20); White Blood Count 11.8 K/mm3 (4.5-10.0)
[2021-06-30 06:22] LABS: INR 1.2; Prothrombin Time 14.8 Seconds (11.1-14.7)
[2021-06-30 06:26] LABS: Anion Gap 8 mmol/L (8-16); Blood Urea Nitrogen 25 mg/dL (9-20); Calcium 9.1 mg/dL (8.4-10.2); Carbon Dioxide 22 mmol/L (22-30); Chloride 107 mmol/L (98-107); Estimated CRCL calculation 67 ml/min; Estimated Glomerular Filt Rate > 60; Glucose 227 mg/dL (65-110); Potassium 3.2 mmol/L (3.4-5.0); Sodium 137 mmol/L (137-145)
[2021-06-30 07:43] LABS: Glucose Point of Care 242 mg/dl (65-105)
[2021-06-30] MEDS: hydroCHLOROthiazide 12.5 MG CAPSULE PO (08:33)
[2021-06-30] MEDS: DOCUSATE SODIUM 100 MG CAPSULE PO ×2 (08:33→16:39)
[2021-06-30] MEDS: SERTRALINE HCL 50 MG TABLET 100 MG BY MOUTH ×2 (08:34→16:40)
[2021-06-30] MEDS: ISOSORBIDE DINITRATE 20 MG TABLET PO ×3 (08:34→16:39)
[2021-06-30] MEDS: METOPROLOL TARTRATE 50 MG TAB 100 MG PO (08:34)
[2021-06-30] MEDS: lisinopriL 20 MG TABLET 40 MG PO (08:34)
[2021-06-30] MEDS: RIVAROXABAN 10 MG TABLET PO (08:34)
[2021-06-30] MEDS: POTASSIUM CHLORIDE 20 MEQ TABLET 40 MEQ PO (08:34)
[2021-06-30] MEDS: INSULIN ASPART (*BKC) 100 UNITS/ML SUB-Q ×3 (08:35→16:40)
--- NOTE | 2021-06-30 11:04 | PM.IMPN ---
Progress Note: A&P Assessment and Plan (1) Femoral neck fracture: Onset Date: 06/2021 Qualifiers: Encounter type: initial encounter Fracture type: closed Laterality: right Qualified Code(s): S72.001A - Fracture of unspecified part of neck of right femur, initial encounter for closed fracture Code(s): S72.009A - Fracture of unspecified part of neck of unspecified femur, initial encounter for closed fracture Status: Acute Assessment and Plan: Orthopedics following, Dr. Duggan POD #2 s/p gamma SHAILESH and cannulated screw PT/OT, NWB RLE Analgesics prn Resumed Xarelto per ortho (2) Fall: Onset Date: 06/2021 Qualifiers: Encounter type: initial encounter Qualified Code(s): W19.XXXA - Unspecified fall, initial encounter Code(s): W19.XXXA - Unspecified fall, initial encounter Status: Acute Assessment and Plan: 2/2 dementia Fall precautions PT/OT May need rehab at d/c Neurology referral at discharge is recommended Continue Donepezil 5 mg HS (3) A-fib: Onset Date: Unknown Qualifiers: Atrial fibrillation type: unspecified chronic Qualified Code(s): I48.20 - Chronic atrial fibrillation, unspecified Code(s): I48.91 - Unspecified atrial fibrillation Status: Chronic Assessment and Plan: Resume Xarelto Restart at recommendation of Orthopedics Rate controlled DVT prophylaxis with SCDs for now Continue Metoprolol Tartrate 10 mg BID (4) Diabetes mellitus: Onset Date: Unknown Qualifiers: Diabetes mellitus type: type 2 Diabetes mellitus usp insulin use: with usp use Code(s): E11.9 - Type 2 diabetes mellitus without complications Status: Chronic Assessment and Plan: Hold all oral medications SSI, Accu Checks AC and HS Continue Lantus 35 units HS HgbA1c 8.2 ADA Diet (5) Hyperlipidemia: Onset Date: Unknown Qualifiers: Hyperlipidemia type: unspecified Qualified Code(s): E78.5 - Hyperlipidemia, unspecified Code(s): E78.5 - Hyperlipidemia, unspecified Status: Chronic Assessment and Plan: Continue Atorvastatin 40 mg po HS (6) Hypertension: Onset Date: Unknown Qualifiers: Hypertension type: unspecified Qualified Code(s): I10 - Essential (primary) hypertension Code(s): I10 - Essential (primary) hypertension Status: Chronic Assessment and Plan: Stable Continue HCTZ 12.5 mg po daily Continue Isosorbide dinitrate 20 mg po TID Continue Quinapril 40 mg po daily Monitor (7) GERD (gastroesophageal reflux disease): Onset Date: Unknown Qualifiers: Esophagitis presence: esophagitis presence not specified Qualified Code(s): K21.9 - Gastro-esophageal reflux disease without esophagitis Code(s): K21.9 - Gastro-esophageal reflux disease without esophagitis Status: Chronic Assessment and Plan: Continue Pantoprazole 40 mg po HS (8) Melena: Onset Date: 02/2021 Code(s): K92.1 - Melena Status: Resolved Assessment and Plan: Recently found in February 2021 Colonoscopy negative Plan for EGD o/p On chronic Xarelto and ASA Monitor stools for any bleeding Monitor H/H daily (9) DVT prophylaxis: Onset Date: ~06/27/21 Code(s): Z29.9 - Encounter for prophylactic measures, unspecified Status: Acute Assessment and Plan: SCD's Resume Xarelto (10) Dementia: Code(s): F03.90 - Unspecified dementia without behavioral disturbance Status: Acute Assessment and Plan: Continue Zolof Ativan prn Supportive care Additional Plan CODE STATUS: DNR Subjective Date/time seen: 06/30/21 11:04 Interval history: Pt seen and evaluated; no acute events overnight; pt is aroused by voice; no complaints at time of exam Review of Systems Review of Systems: All systems reviewed & are unremarkable except as noted in HPI
--- NOTE | 2021-06-30 11:33 | PM.PNORT ---
Progress Note: A&P Assessment and Plan (1) Femoral neck fracture: Onset Date: 06/2021 Qualifiers: Encounter type: initial encounter Fracture type: closed Laterality: right Qualified Code(s): S72.001A - Fracture of unspecified part of neck of right femur, initial encounter for closed fracture Code(s): S72.009A - Fracture of unspecified part of neck of unspecified femur, initial encounter for closed fracture Status: Acute Assessment and Plan: POD #2: INSERTION GAMMA SHAILESH AND CANNULATED SCREW RIGHT HIP FRACTURE nursing report that patient is somewhat somnolent. Difficulty getting out of bed with therapy. He has not had any recent narcotic medication. He is awake and alert at this time. Answers questions appropriately. May be after effects of anesthesia. We will continue to hold narcotics. Continue PT/OT. NWB RLE. Walker. HIGH FALL RISK. Continue pain control, limit narcotics -Will hold [place]. Ice lateral hip. Incentive spirometry. SCDs. DVT prophylaxis. Xarelto resumed Dispo: Acute Rehab Subjective Subjective Date/Time Seen: 06/30/21 11:33 Post Op day: 2 Principal diagnosis: Right hip fracture Interval history: patient awake. Complains of right hip pain when rolling over or trying to get out of bed. Denies numbness or tingling. Exam Const: General: comfortable and no acute distress Resp: Effort & Inspection: normal respiratory effort (nasal cannula O2 ) GI: Inspection: non-distended GI Palp: Yes Soft to palpation and No Tenderness to palpation present (GI) Skin: General skin exam: normal color Wounds: wounds noted (Right lateral hip- dressing c/d/i ) Neuro: General: No gait normal (NWB RLE ) Cognition (Neuro): normal cognition (answering questions appropriately, fatigued, some confusion to situatio) Speech: normal speech Extrem: Right lower extremity: hip/thigh Details: tenderness Location: of the hip Location: laterally, swelling Location: at the hip and abnormal ROM (limited due to recent fracture ), knee Details: normal to inspection and normal ROM; no tenderness and no swelling, lower leg (Negative Zack's Sign ), ankle (+ankle dorsiflexion/plantarflexion ) and foot (2+ pedal pulses ) Details: normal capillary refill and vascular exam Details: dorsalis pedis pulse present Psych: Other: Following commands, Alert and oriented x3. Answers questions appropriately. Objective Data Vital Signs Vital Signs: Vital Signs - 24 hr 06/29/21 14:12 06/29/21 21:16 06/29/21 21:41 Temperature 98.1 F 97.6 F Pulse Rate 93 71 71 Respiratory Rate 16 22 H Blood Pressure 130/58 L 141/62 H Pulse Oximetry 100 93 06/30/21 00:11 06/30/21 05:55 06/30/21 08:29 Temperature 96.8 F L 97.4 F L Pulse Rate 70 69 70 Respiratory Rate 22 H 22 H 16 Blood Pressure 153/70 H 158/58 H 159/60 H Pulse Oximetry 93 96 94 06/30/21 08:34 06/30/21 08:45 06/30/21 10:00 Temperature 97.2 F L Pulse Rate 72 72 66 Respiratory Rate 16 16 Blood Pressure 129/61 Pulse Oximetry 94 97 Intake/Output Intake/Output: Intake & Output 06/27/21 06/28/21 06/29/21 06/30/21 23:59 23:59 23:59 23:59 Intake Total 2340 3350 900 1250 Output Total 1125 375 900 300 Balance 1215 2975 0 950 Meds/Results Medications: Active Medications Generic Name Dose Route Start Last Admin Trade Name Freq PRN Reason Stop Dose Admin Acetaminophen 650 mg 06/28/21 16:55 06/29/21 23:06 Acetaminophen 325 Mg Tablet PO 650 mg Q6H PRN Administration Mild Pain (1-3) or Fever Hydrocodone Bitart/Acetaminophen 1 tab 06/28/21 16:55 Hydrocodone/Acetaminophen (*Crx) 5-325 Mg Tablet PO Q3H PRN Pain Rated 4-6 Atorvastatin Calcium 40 mg 06/27/21 21:00 06/29/21 21:16 Atorvastatin 40 Mg Tablet BY MOUTH 40 mg HS PORTER Administration Dextrose 12.5 gm 06/27/21 11:17 Dextrose 50% 25 Gm/50 Ml Syringe IV PUSH PRN PRN Hypoglycemia Protocol Diazepam 5 mg 06/28/21 16
[2021-06-30 11:50] LABS: Glucose Point of Care 203 mg/dl (65-105)
[2021-06-30] MEDS: ACETAMINOPHEN 325 MG TABLET 650 MG PO (13:15)
[2021-06-30 16:38] LABS: Glucose Point of Care 261 mg/dl (65-105)
[2021-06-30] MEDS: DONEPEZIL HCL 5 MG TABLET PO (21:08)
[2021-06-30] MEDS: ATORVASTATIN 40 MG TABLET BY MOUTH (21:08)
[2021-06-30] MEDS: PANTOPRAZOLE 40 MG TABLET PO (21:09)
[2021-06-30] MEDS: INSULIN GLARGINE (*BKC) 100 UNITS/ML 35 UNITS SUB-Q (21:15)
[2021-06-30 21:20] LABS: Glucose Point of Care 288 mg/dl (65-105)
[2021-07-01] VITALS (9 sets, daily range): BP systolic 148–175; BP diastolic 64–88; PULSE 61–82; RESP 18–20; TEMP 35.7–36.7; O2SAT 97–99
[2021-07-01 05:58] LABS: INR 1.3; Prothrombin Time 16.1 Seconds (11.1-14.7)
[2021-07-01 07:55] LABS: Glucose Point of Care 205 mg/dl (65-105)
[2021-07-01] MEDS: METOPROLOL TARTRATE 50 MG TAB 100 MG PO ×2 (08:31→21:02)
[2021-07-01] MEDS: hydroCHLOROthiazide 12.5 MG CAPSULE PO (08:31)
[2021-07-01] MEDS: DOCUSATE SODIUM 100 MG CAPSULE PO ×2 (08:31→16:41)
[2021-07-01] MEDS: SERTRALINE HCL 50 MG TABLET 100 MG BY MOUTH ×2 (08:32→16:41)
[2021-07-01] MEDS: INSULIN ASPART (*BKC) 100 UNITS/ML SUB-Q ×3 (08:33→16:41)
[2021-07-01] MEDS: ISOSORBIDE DINITRATE 20 MG TABLET PO ×3 (08:33→16:41)
[2021-07-01] MEDS: lisinopriL 20 MG TABLET 40 MG PO (08:33)
--- NOTE | 2021-07-01 09:56 | PC.NURSE ---
able to give 0900 xeralto on time, waiting for pharmacy to send up, pharmacy notified.
[2021-07-01 10:19] LABS: Hematocrit 30.3 % (42.0-52.0); Hemoglobin 9.8 g/dL (14.0-18.0)
[2021-07-01 10:29] LABS: Potassium 3.3 mmol/L (3.4-5.0)
[2021-07-01 11:32] LABS: Glucose Point of Care 281 mg/dl (65-105)
[2021-07-01] MEDS: ACETAMINOPHEN 325 MG TABLET 650 MG PO (13:09)
[2021-07-01] MEDS: RIVAROXABAN 10 MG TABLET PO (13:10)
--- NOTE | 2021-07-01 15:52 | PM.IMPN ---
Progress Note: A&P Assessment and Plan (1) Femoral neck fracture: Onset Date: 06/2021 Qualifiers: Encounter type: initial encounter Fracture type: closed Laterality: right Qualified Code(s): S72.001A - Fracture of unspecified part of neck of right femur, initial encounter for closed fracture Code(s): S72.009A - Fracture of unspecified part of neck of unspecified femur, initial encounter for closed fracture Status: Acute Assessment and Plan: Orthopedics following, Dr. Duggan POD #3 s/p gamma SHAILESH and cannulated screw PT/OT, NWB RLE Analgesics prn Resumed Xarelto per ortho (2) Fall: Onset Date: 06/2021 Qualifiers: Encounter type: initial encounter Qualified Code(s): W19.XXXA - Unspecified fall, initial encounter Code(s): W19.XXXA - Unspecified fall, initial encounter Status: Acute Assessment and Plan: 2/2 dementia Fall precautions PT/OT May need rehab at d/c Neurology referral at discharge is recommended Continue Donepezil 5 mg HS (3) A-fib: Onset Date: Unknown Qualifiers: Atrial fibrillation type: unspecified chronic Qualified Code(s): I48.20 - Chronic atrial fibrillation, unspecified Code(s): I48.91 - Unspecified atrial fibrillation Status: Chronic Assessment and Plan: Continue Xarelto Rate controlled DVT prophylaxis with SCDs Continue Metoprolol Tartrate 10 mg BID (4) Diabetes mellitus: Onset Date: Unknown Qualifiers: Diabetes mellitus type: type 2 Diabetes mellitus penitentiary insulin use: with penitentiary use Code(s): E11.9 - Type 2 diabetes mellitus without complications Status: Chronic Assessment and Plan: Hold all oral medications SSI, Accu Checks AC and HS Continue Lantus 35 units HS HgbA1c 8.2 ADA Diet (5) Hyperlipidemia: Onset Date: Unknown Qualifiers: Hyperlipidemia type: unspecified Qualified Code(s): E78.5 - Hyperlipidemia, unspecified Code(s): E78.5 - Hyperlipidemia, unspecified Status: Chronic Assessment and Plan: Continue Atorvastatin 40 mg po HS (6) Hypertension: Onset Date: Unknown Qualifiers: Hypertension type: unspecified Qualified Code(s): I10 - Essential (primary) hypertension Code(s): I10 - Essential (primary) hypertension Status: Chronic Assessment and Plan: Stable Continue HCTZ 12.5 mg po daily Continue Isosorbide dinitrate 20 mg po TID Continue Quinapril 40 mg po daily Monitor (7) GERD (gastroesophageal reflux disease): Onset Date: Unknown Qualifiers: Esophagitis presence: esophagitis presence not specified Qualified Code(s): K21.9 - Gastro-esophageal reflux disease without esophagitis Code(s): K21.9 - Gastro-esophageal reflux disease without esophagitis Status: Chronic Assessment and Plan: Continue Pantoprazole 40 mg po HS (8) Melena: Onset Date: 02/2021 Code(s): K92.1 - Melena Status: Resolved Assessment and Plan: Recently found in February 2021 Colonoscopy negative Plan for EGD o/p On chronic Xarelto and ASA Monitor stools for any bleeding Monitor H/H daily (9) DVT prophylaxis: Onset Date: ~06/27/21 Code(s): Z29.9 - Encounter for prophylactic measures, unspecified Status: Acute Assessment and Plan: SCD's Resume Xarelto (10) Dementia: Code(s): F03.90 - Unspecified dementia without behavioral disturbance Status: Acute Assessment and Plan: Continue Zolof Ativan prn Supportive care Additional Plan CODE STATUS: DNR Subjective Date/time seen: 07/01/21 15:52 Interval history: Pt seen and evaluated; no acute events overnight; no complaints at time of exam Review of Systems Review of Systems: All systems reviewed & are unremarkable except as noted in HPI and below Exam Const: General: no acute distress, alert and awake
[2021-07-01 16:17] LABS: Glucose Point of Care 363 mg/dl (65-105)
[2021-07-01 20:17] LABS: Glucose Point of Care 354 mg/dl (65-105)
[2021-07-01] MEDS: PANTOPRAZOLE 40 MG TABLET PO (21:02)
[2021-07-01] MEDS: DONEPEZIL HCL 5 MG TABLET PO (21:03)
[2021-07-01] MEDS: ATORVASTATIN 40 MG TABLET BY MOUTH (21:03)
[2021-07-01] MEDS: INSULIN GLARGINE (*BKC) 100 UNITS/ML 35 UNITS SUB-Q (21:03)
[2021-07-01] MEDS: MORPHINE SULFATE (*CRX) 4 MG/ML INJ 3 MG IV PUSH (22:40)
[2021-07-02] VITALS (7 sets, daily range): BP systolic 114–162; BP diastolic 60–64; PULSE 58–80; RESP 14–20; TEMP 36.2–36.8; O2SAT 96–99
[2021-07-02 06:10] LABS: Anion Gap 9 mmol/L (8-16); Blood Urea Nitrogen 23 mg/dL (9-20); Calcium 8.8 mg/dL (8.4-10.2); Carbon Dioxide 24 mmol/L (22-30); Chloride 106 mmol/L (98-107); Estimated CRCL calculation 66 ml/min; Estimated Glomerular Filt Rate > 60; Glucose 278 mg/dL (65-110); INR 1.2; Potassium 3.2 mmol/L (3.4-5.0); Prothrombin Time 14.9 Seconds (11.1-14.7); Sodium 139 mmol/L (137-145)
[2021-07-02 06:38] LABS: Hematocrit 30.5 % (42.0-52.0); Hemoglobin 9.7 g/dL (14.0-18.0); Mean Corpuscular HGB Conc 31.8 g/dl (32-36); Mean Corpuscular Hemoglobin 28.8 pg (26-34); Mean Corpuscular Volume 90.5 fl (80-100); Mean Platelet Volume 10.1 fl (7.4-10.4); Platelet Count Result 269 k/mm3 (150-375); Red Blood Count 3.37 M/mm3 (4.6-6.20); Red Cell Distribution Width 15.1 % (11.5-14.5)
[2021-07-02 07:30] LABS: Glucose Point of Care 260 mg/dl (65-105)
[2021-07-02] MEDS: SERTRALINE HCL 50 MG TABLET 100 MG BY MOUTH ×2 (08:29→16:43)
[2021-07-02] MEDS: hydroCHLOROthiazide 12.5 MG CAPSULE PO (08:29)
[2021-07-02] MEDS: lisinopriL 20 MG TABLET 40 MG PO (08:29)
[2021-07-02] MEDS: RIVAROXABAN 10 MG TABLET PO (08:29)
[2021-07-02] MEDS: DOCUSATE SODIUM 100 MG CAPSULE PO ×2 (08:29→16:43)
[2021-07-02] MEDS: POTASSIUM CHLORIDE 20 MEQ TABLET 40 MEQ PO (08:29)
[2021-07-02] MEDS: METOPROLOL TARTRATE 50 MG TAB 100 MG PO ×2 (08:30→20:10)
[2021-07-02] MEDS: ISOSORBIDE DINITRATE 20 MG TABLET PO ×3 (08:30→16:43)
[2021-07-02] MEDS: INSULIN ASPART (*BKC) 100 UNITS/ML SUB-Q ×3 (08:31→16:43)
[2021-07-02] MEDS: ACETAMINOPHEN 325 MG TABLET 650 MG PO ×2 (08:32→20:10)
--- NOTE | 2021-07-02 09:14 | PM.IMPN ---
Progress Note: A&P Assessment and Plan (1) Femoral neck fracture: Onset Date: 06/2021 Qualifiers: Encounter type: initial encounter Fracture type: closed Laterality: right Qualified Code(s): S72.001A - Fracture of unspecified part of neck of right femur, initial encounter for closed fracture Code(s): S72.009A - Fracture of unspecified part of neck of unspecified femur, initial encounter for closed fracture Status: Acute Assessment and Plan: Orthopedics following, Dr. Duggan POD #4 s/p gamma SHAILESH and cannulated screw PT/OT, NWB RLE Analgesics prn Resumed Xarelto per ortho (2) Fall: Onset Date: 06/2021 Qualifiers: Encounter type: initial encounter Qualified Code(s): W19.XXXA - Unspecified fall, initial encounter Code(s): W19.XXXA - Unspecified fall, initial encounter Status: Acute Assessment and Plan: 2/2 dementia Fall precautions PT/OT May need rehab at d/c Neurology referral at discharge is recommended Continue Donepezil 5 mg HS (3) A-fib: Onset Date: Unknown Qualifiers: Atrial fibrillation type: unspecified chronic Qualified Code(s): I48.20 - Chronic atrial fibrillation, unspecified Code(s): I48.91 - Unspecified atrial fibrillation Status: Chronic Assessment and Plan: Continue Xarelto Rate controlled DVT prophylaxis with SCDs Continue Metoprolol Tartrate 10 mg BID (4) Diabetes mellitus: Onset Date: Unknown Qualifiers: Diabetes mellitus type: type 2 Diabetes mellitus fpc insulin use: with fpc use Code(s): E11.9 - Type 2 diabetes mellitus without complications Status: Chronic Assessment and Plan: Hold all oral medications SSI, Accu Checks AC and HS Continue Lantus 35 units HS HgbA1c 8.2 ADA Diet (5) Hyperlipidemia: Onset Date: Unknown Qualifiers: Hyperlipidemia type: unspecified Qualified Code(s): E78.5 - Hyperlipidemia, unspecified Code(s): E78.5 - Hyperlipidemia, unspecified Status: Chronic Assessment and Plan: Continue Atorvastatin 40 mg po HS (6) Hypertension: Onset Date: Unknown Qualifiers: Hypertension type: unspecified Qualified Code(s): I10 - Essential (primary) hypertension Code(s): I10 - Essential (primary) hypertension Status: Chronic Assessment and Plan: Stable Continue HCTZ 12.5 mg po daily Continue Isosorbide dinitrate 20 mg po TID Continue Quinapril 40 mg po daily Monitor (7) GERD (gastroesophageal reflux disease): Onset Date: Unknown Qualifiers: Esophagitis presence: esophagitis presence not specified Qualified Code(s): K21.9 - Gastro-esophageal reflux disease without esophagitis Code(s): K21.9 - Gastro-esophageal reflux disease without esophagitis Status: Chronic Assessment and Plan: Continue Pantoprazole 40 mg po HS (8) Melena: Onset Date: 02/2021 Code(s): K92.1 - Melena Status: Resolved Assessment and Plan: Recently found in February 2021 Colonoscopy negative Plan for EGD o/p On chronic Xarelto and ASA Monitor stools for any bleeding Monitor H/H daily (9) DVT prophylaxis: Onset Date: ~06/27/21 Code(s): Z29.9 - Encounter for prophylactic measures, unspecified Status: Acute Assessment and Plan: SCD's Resume Xarelto (10) Dementia: Code(s): F03.90 - Unspecified dementia without behavioral disturbance Status: Acute Assessment and Plan: Continue Zolof Ativan prn Supportive care Additional Plan CODE STATUS: DNR Subjective Date/time seen: 07/02/21 09:14 Interval history: Pt seen and evaluated; no acute events overnight; no complaints at time of exam; pt up to chair exercising with therapy; states that he feel good sitting up Review of Systems Review of Systems: All systems reviewed & are unremarkable except as noted i
[2021-07-02 11:39] LABS: Glucose Point of Care 319 mg/dl (65-105)
--- NOTE | 2021-07-02 12:22 | PCNFU ---
Nutrition Follow-Up Complete: Inadequate oral intake related to decreased appetite as evidenced by weight loss of 27.4 pounds since being admitted on 06/05/2021 and 40% consumption of lunch yesterday 06/27/2021 on a diabetic consistent carbohydrate diet. Goal: Patient to meet estimated nutritional needs. Patient is progressing towards goal. We will continue current goal. Pt current nutrition is Regular. Last recorded weight is 90.5 kg same on admit. Recommend: new weight. Bowel Motility:+BM reported 07/01 Labs Reviewed:Hct 30.5,Hgb 9.7,K 3.2,BUN 23, Glu 278 Meds Noted:Novolog, Lantus,Colace, Aricept,Protonix. Additional Notes: Nutrition follow up. Patient currently on a regular diet, eating 50-100% of meals. Appetite as improved. Agree with diet orders. Monitor: patient's labs, medications, weight, and oral intake every 5 days.
--- NOTE | 2021-07-02 15:33 | PM.PNORT ---
Progress Note: A&P Assessment and Plan (1) Femoral neck fracture: Onset Date: 06/2021 Qualifiers: Encounter type: initial encounter Fracture type: closed Laterality: right Qualified Code(s): S72.001A - Fracture of unspecified part of neck of right femur, initial encounter for closed fracture Code(s): S72.009A - Fracture of unspecified part of neck of unspecified femur, initial encounter for closed fracture Status: Acute Assessment and Plan: POD #4: INSERTION GAMMA SHAILESH AND CANNULATED SCREW RIGHT HIP FRACTURE Improvement in mentation today. Continue PT/OT. NWB RLE. Walker. HIGH FALL RISK. Continue pain control, Hold [place]. Ice lateral hip. Incentive spirometry. SCDs. DVT prophylaxis. Xarelto resumed. Dispo: SNF Subjective Subjective Date/Time Seen: 07/02/21 15:33 Interval history: POD #4 No new complaints. Feeling well today. More alert. Answering all questions appropriately. Review of Systems Constitutional: Constitutional: Reports as per HPI, Denies fatigue, Denies fever(s) and Denies lethargy Cardiovascular: Cardiovascular: Denies chest pain and Denies lightheadedness Respiratory: Respiratory: Reports no additional respiratory complaints and Denies cough Gastrointestinal: Gastrointestinal: Denies abdominal pain, Denies bloating, Denies nausea and Denies vomiting Genitourinary: Genitourinary: Reports no additional male genitourinary complaints Musculoskeletal: Musculoskeletal: Reports as per HPI Exam Const: General: comfortable and no acute distress Resp: Effort & Inspection: normal respiratory effort GI: Inspection: non-distended GI Palp: Yes Soft to palpation and No Tenderness to palpation present (GI) Skin: General skin exam: normal color Wounds: wounds noted (Right lateral hip- dressing c/d/i ) Neuro: General: No gait normal (NWB RLE ) Cognition (Neuro): normal cognition Speech: normal speech Extrem: Right lower extremity: hip/thigh Details: tenderness Location: of the hip Location: laterally, swelling Location: at the hip and abnormal ROM (limited due to recent fracture ), knee Details: normal to inspection and normal ROM; no tenderness and no swelling, lower leg (Negative Zack's Sign ), ankle (+ankle dorsiflexion/plantarflexion ) and foot (2+ pedal pulses ) Details: normal capillary refill and vascular exam Details: dorsalis pedis pulse present Psych: Mental Status: mental status grossly normal Objective Data Vital Signs Vital Signs: Vital Signs - 24 hr 07/01/21 16:36 07/01/21 21:02 07/01/21 21:28 Temperature 35.7 C L 36.7 C Pulse Rate 65 70 69 Respiratory Rate 18 18 Blood Pressure 151/66 H 160/65 H Pulse Oximetry 97 97 07/02/21 06:00 07/02/21 08:30 07/02/21 10:06 Temperature 36.8 C 36.6 C Pulse Rate 63 80 61 Respiratory Rate 18 14 Blood Pressure 148/61 H 114/60 Pulse Oximetry 96 99 07/02/21 14:40 Temperature 36.7 C Pulse Rate 58 L Respiratory Rate 16 Blood Pressure 134/60 Pulse Oximetry 97 Intake/Output Intake/Output: Intake & Output 06/29/21 06/30/21 07/01/21 07/02/21 23:59 23:59 23:59 23:59 Intake Total 900 1980 1750 870 Output Total 728 394 6437 1300 Balance 0 1280 -250 -430 Meds/Results Medications: Active Medications Generic Name Dose Route Start Last Admin Trade Name Freq PRN Reason Stop Dose Admin Acetaminophen 650 mg 06/28/21 16:55 07/02/21 08:32 Acetaminophen 325 Mg Tablet PO 650 mg Q6H PRN Administration Mild Pain (1-3) or Fever Atorvastatin Calcium 40 mg 06/27/21 21:00 07/01/21 21:03 Atorvastatin 40 Mg Tablet BY MOUTH 40 mg HS PORTER Administration Dextrose 12.5 gm 06/27/21 11:17 Dextrose 50% 25 Gm/50 Ml Syringe IV PUSH PRN PRN Hypoglycemia Protocol Docusate Sodium 100 mg 06/28/21 17:00 07/02/21 08:29 Docusate Sodium 100 Mg Capsule PO 100 mg BID PORTER Administration Donepezil HCl 5 mg 06/27/21 21:00 07/01/21 21:03 Donepezil
[2021-07-02 16:30] LABS: Glucose Point of Care 339 mg/dl (65-105)
[2021-07-02] MEDS: ATORVASTATIN 40 MG TABLET BY MOUTH (20:10)
[2021-07-02] MEDS: PANTOPRAZOLE 40 MG TABLET PO (20:10)
[2021-07-02] MEDS: DONEPEZIL HCL 5 MG TABLET PO (20:11)
[2021-07-02] MEDS: INSULIN GLARGINE (*BKC) 100 UNITS/ML 35 UNITS SUB-Q (20:13)
[2021-07-02] MEDS: INSULIN GLARGINE (*BKC) 100 UNITS/ML 10 UNITS SUB-Q (21:19)
[2021-07-02] MEDS: INSULIN ASPART (*BKC) 100 UNITS/ML 10 UNITS SUB-Q (21:20)
[2021-07-02 21:27] LABS: Glucose Point of Care 427 mg/dl (65-105)
[2021-07-03 05:03] VITALS: BP 152/55; PULSE 56; RESP 20; TEMP 36.1; O2SAT 98
[2021-07-03 06:02] LABS: Hematocrit 31.8 % (42.0-52.0); Hemoglobin 10.1 g/dL (14.0-18.0); Mean Corpuscular HGB Conc 31.8 g/dl (32-36); Mean Corpuscular Hemoglobin 29.1 pg (26-34); Mean Corpuscular Volume 91.6 fl (80-100); Platelet Count Result 275 k/mm3 (150-375); Red Blood Count 3.47 M/mm3 (4.6-6.20); Red Cell Distribution Width 15.1 % (11.5-14.5); White Blood Count 12.4 K/mm3 (4.5-10.0)
[2021-07-03 06:09] LABS: Prothrombin Time 13.3 Seconds (11.1-14.7)
[2021-07-03 07:20] LABS: Glucose Point of Care 137 mg/dl (65-105)
[2021-07-03] MEDS: ASPIRIN 81 MG ENTERIC TABLET PO (09:18)
[2021-07-03 09:19] VITALS: PULSE 66
[2021-07-03] MEDS: ISOSORBIDE DINITRATE 20 MG TABLET PO ×3 (09:19→16:28)
[2021-07-03] MEDS: hydroCHLOROthiazide 12.5 MG CAPSULE PO (09:19)
[2021-07-03] MEDS: lisinopriL 20 MG TABLET 40 MG PO (09:19)
[2021-07-03] MEDS: SERTRALINE HCL 50 MG TABLET 100 MG BY MOUTH ×2 (09:19→16:30)
[2021-07-03] MEDS: RIVAROXABAN 10 MG TABLET PO (09:19)
[2021-07-03] MEDS: DOCUSATE SODIUM 100 MG CAPSULE PO ×2 (09:19→16:28)
[2021-07-03] MEDS: METOPROLOL TARTRATE 50 MG TAB 100 MG PO (09:19)
[2021-07-03] MEDS: metFORMIN HCL 500 MG TABLET 1000 MG PO ×2 (09:21→16:31)
[2021-07-03] MEDS: ACETAMINOPHEN 325 MG TABLET 650 MG PO ×2 (09:27→16:27)
--- NOTE | 2021-07-03 10:36 | PHAR ---
The patient's home med of Tradjenta 5mg and Jardiance 10mg have been verified. Partial bottles and 1 full bottle of each med.
[2021-07-03 11:50] VITALS: BP 133/58
[2021-07-03 11:56] LABS: Glucose Point of Care 335 mg/dl (65-105)
[2021-07-03] MEDS: INSULIN ASPART (*BKC) 100 UNITS/ML SUB-Q ×3 (12:00→16:47)
--- NOTE | 2021-07-03 14:55 | PM.IMPN ---
Progress Note: A&P Assessment and Plan (1) Femoral neck fracture: Onset Date: 06/2021 Qualifiers: Encounter type: initial encounter Fracture type: closed Laterality: right Qualified Code(s): S72.001A - Fracture of unspecified part of neck of right femur, initial encounter for closed fracture Code(s): S72.009A - Fracture of unspecified part of neck of unspecified femur, initial encounter for closed fracture Status: Acute Assessment and Plan: Patient presents with hip pain after fall. X-ray showing Basicervical fracture of right femoral neck. orthopedics was consulted. Patient has undergone ORIF with insertion of a gamma anamaria and cannulated screw for right hip fracture 06/28/21. Patient postop day 5. Pain well controlled. Patient currently nonweightbearing status. Appreciate Orthopedics input. Continue PT and OT. SNF being arranged. (2) Fall: Onset Date: 06/2021 Qualifiers: Encounter type: initial encounter Qualified Code(s): W19.XXXA - Unspecified fall, initial encounter Code(s): W19.XXXA - Unspecified fall, initial encounter Status: Acute Assessment and Plan: Etiology of the fall is unclear. No urine was collected. Continue PT and OT. (3) Diabetes mellitus: Onset Date: Unknown Qualifiers: Diabetes mellitus exterminator insulin use: with shelter use Diabetes mellitus type: type 2 Code(s): E11.9 - Type 2 diabetes mellitus without complications Status: Chronic Assessment and Plan: A1c 8.2. The patient's blood glucose was reviewed on 07/03 Glucose remains poorly controlled. Currently on Lantus 5U QHS. Continue AccuCheks covering with sliding scale. Hypoglycemia protocol available as needed. Novology at mealtimes added. Resume Metformin. Added back his other home diabetic meds but we don't carry them - his was able to bring them in so they have been started as well. Will advance Lantus tonight. Continue diabetic diet. (4) A-fib: Onset Date: Unknown Qualifiers: Atrial fibrillation type: unspecified chronic Qualified Code(s): I48.20 - Chronic atrial fibrillation, unspecified Code(s): I48.91 - Unspecified atrial fibrillation Status: Chronic Assessment and Plan: Heart rate well controlled because he is maintaining NSR. EKG on admission showing normal sinus rhythm. Continue metoprolol. Xarelto has been resumed although at a lower dose than he takes at home. Advanced Xarelto when okay with Orthopedics. (5) Hypertension: Onset Date: Unknown Qualifiers: Hypertension type: unspecified Qualified Code(s): I10 - Essential (primary) hypertension Code(s): I10 - Essential (primary) hypertension Status: Chronic Assessment and Plan: Patient's blood pressure was reviewed on 07/03 Blood pressure remains reasonably well controlled. Will continue current medications with HCTZ, Isordil, Lopressor, and Lisinopril. Adjust medications as needed. (6) Dementia: Code(s): F03.90 - Unspecified dementia without behavioral disturbance Status: Acute Assessment and Plan: Patient has mild dementia. Continue Aricept. Continue Zoloft for depression. (7) DVT prophylaxis: Onset Date: ~06/27/21 Code(s): Z29.9 - Encounter for prophylactic measures, unspecified Status: Acute Assessment and Plan: Xarelto Subjective Date/time seen: 07/03/21 14:55 Interval history: 76yo male with pAFib, CVA, CAD, DM and early dementia here for hip pain after a ground level fall and found to have right femoral neck fracture. Assuming care. Chart reviewed. He is NWB status and is up to the chair today using the stair steady. No chest pain or SOB. Eating okay. No n/v. Pain well controlled. Exam Narrative: AF 97.0 133/58 66 20 98% ra Gen - NARD sitting up in chair Chest - CTA bilaterally, nml RR CV -
[2021-07-03 15:26] VITALS: BP 114/63; PULSE 65; RESP 16; TEMP 36.1; O2SAT 100
--- NOTE | 2021-07-03 15:45 | PM.DS ---
DS: Admitting Diagnosis Discharge Date 07/03/21 Admitting Diagnosis Hip fracture after a fall DS: Discharge Diagnosis Discharge Diagnosis (1) Femoral neck fracture: Onset Date: 06/2021 Qualifiers: Encounter type: initial encounter Fracture type: closed Laterality: right Qualified Code(s): S72.001A - Fracture of unspecified part of neck of right femur, initial encounter for closed fracture Code(s): S72.009A - Fracture of unspecified part of neck of unspecified femur, initial encounter for closed fracture Status: Acute Assessment and Plan: Patient presents with hip pain after fall. X-ray showing Basicervical fracture of right femoral neck. orthopedics was consulted. Patient underwent ORIF with insertion of a gamma anamaria and cannulated screw for right hip fracture 06/28/21. Pain became well controlled. Patient currently nonweightbearing status. Patient worked with PT and OT. SNF was arranged (2) Fall: Onset Date: 06/2021 Qualifiers: Encounter type: initial encounter Qualified Code(s): W19.XXXA - Unspecified fall, initial encounter Code(s): W19.XXXA - Unspecified fall, initial encounter Status: Acute Assessment and Plan: Etiology of the fall is unclear. No urine was collected. As above. (3) Diabetes mellitus: Onset Date: Unknown Qualifiers: Diabetes mellitus mcc insulin use: with mcc use Diabetes mellitus type: type 2 Code(s): E11.9 - Type 2 diabetes mellitus without complications Status: Chronic Assessment and Plan: A1c 8.2. The patient's blood glucose was monitored closely with AccuCheks covering with sliding scale. Hypoglycemia protocol was available as needed. We resumed his home regiment. (4) A-fib: Onset Date: Unknown Qualifiers: Atrial fibrillation type: unspecified chronic Qualified Code(s): I48.20 - Chronic atrial fibrillation, unspecified Code(s): I48.91 - Unspecified atrial fibrillation Status: Chronic Assessment and Plan: Heart rate well controlled. EKG on admission showing normal sinus rhythm. We continued his metoprolol. Xarelto was resumed when it was okay with Orthopedics. (5) Hypertension: Onset Date: Unknown Qualifiers: Hypertension type: unspecified Qualified Code(s): I10 - Essential (primary) hypertension Code(s): I10 - Essential (primary) hypertension Status: Chronic Assessment and Plan: Patient's blood pressure was monitored closely and remained reasonably well controlled. We continued his home medications with HCTZ, Isordil, Lopressor, and Lisinopril. (6) Dementia: Code(s): F03.90 - Unspecified dementia without behavioral disturbance Status: Acute Assessment and Plan: Patient has mild dementia. We continued Aricept. We continued Zoloft for depression. DS: Summary Hospital Course Reason for hospitalization: 76yo male with pAFib, CVA, CAD, DM and early dementia here for hip pain after a ground level fall and found to have right femoral neck fracture. Please see H&P for details Hospital Course: Please see above for details of hospital course Status at Discharge Cognitive/behavioral status at discharge: stable Time Spent with Patient Time attestation: Total time spent providing and/or coordinating discharge services: 34 minutes Time spent: Greater than 30 minutes Exam Narrative: AF 97.0 133/58 66 20 98% ra Gen - NARD sitting up in chair Chest - CTA bilaterally, nml RR CV - RRR S1/S2 Abd - Soft, NT/ND, Positive BS Ext - Trace right lower extremity edema. right hip dressing is clean, dry and intact. Psych - Nml mood and affect Skin - Warm and dry. No excessive bruising noted. DS: Data Data Completed and Pending Labs on day of discharge: Labs from last 24 hours 07/03/21 07/03/21 07/03/21 11:54 07:16 05:23 WBC 1
[2021-07-03 16:19] LABS: Add Urine Microscopic? YES; Appearance Urine Clear (Clear); Bacteria Urine Trace /hpf; Bilirubin Urine Negative (Negative); Blood Urine Negative (Negative); Color Urine Yellow (Yellow); Glucose Urine UA 3+ mg/dL (Negative); Ketones Urine Negative (Negative); Leukocyte Esterase Ur Trace LEU/UL (Negative); Mucus Urine Rare /lpf; Nitrate Urine Negative (Negative); Protein Urine 1+ mg/dL (Negative); Specific Grav Ur 1.028 (1.001-1.035); Squamous Epithelial Cell Urine Rare /hpf (Few); Urobilinogen Urine Negative mg/dL (<2.0); WBC Urine 0-3 /hpf
[2021-07-03 16:43] LABS: Glucose Point of Care 209 mg/dl (65-105)
[2021-07-03] MEDS: INSULIN ASPART (*BKC) 100 UNITS/ML 7 UNITS SUB-Q (16:48)
== END 2021-07-03 18:29 | DRG 481 ==
LOC: ANHED 06-27 09:01 → ANH2MED 06-27 09:28
PROVIDERS: Nurse Practitioner Adult Health; Orthopaedic Surgery; Admitting Provider Internal Medicine Nephrology; Emergency Provider Emergency Medicine; PCP Family Medicine; Visit Provider Internal Medicine
PROC: 0QS634Z Reposition Right Upper Femur with Internal Fixation Device, Percutaneous Approach (ICD-10-PCS; CPT 27245; principal; 2021-06-28 14:30)
DX: S72.091A Other fracture of head and neck of right femur, initial encounter for closed fracture (principal); I48.20 Chronic atrial fibrillation, unspecified; W01.198A Fall on same level from slipping, tripping and stumbling with subsequent striking against other object, initial encounter; F03.90 Unspecified dementia, unspecified severity, without behavioral disturbance, psychotic disturbance, mood disturbance, and anxiety; I10 Essential (primary) hypertension; E11.9 Type 2 diabetes mellitus without complications; I25.10 Atherosclerotic heart disease of native coronary artery without angina pectoris; K44.9 Diaphragmatic hernia without obstruction or gangrene; K21.9 Gastro-esophageal reflux disease without esophagitis; E78.5 Hyperlipidemia, unspecified; Z86.73 Personal history of transient ischemic attack (TIA), and cerebral infarction without residual deficits; Z95.1 Presence of aortocoronary bypass graft; Z79.01 Long term (current) use of anticoagulants; Z79.82 Long term (current) use of aspirin
CPT/HCPCS: 36415; 70450; 71046; 72125; 73502; 73701; 80048; 80053; 81001; 82948; 83036; 84132; 85014; 85018; 85025; 85027; 85610; 85730; 86850; 86900; 86901; 93005; 96374; 96376; 97110; 97162; 97165; 97530; 97535; 99285; A9270; C1713; G0378; J0131; J0690; J1100; J1815; J2060; J2270; J2704; J3010; J3480; J7030; J7120; Q9967

== ENCOUNTER 2021-12-04 14:33 | Observation (INO) | payer MEDICARE, OTHER, SELFPAY ==
[2021-12-04] VITALS (32 sets, daily range): BP systolic 148–171; BP diastolic 63–95; PULSE 56–72; RESP 11–23; TEMP 36.2–36.7; O2SAT 94–100; BMI 27.3
--- NOTE | ~2021-12-04 | XR_ITS ---
EXAMINATION: XR chest 2V DATE: 12/04/2021 14:52 INDICATION: Chest pain. TECHNIQUE: Frontal and lateral views of the chest were obtained. COMPARISON: Chest 2 views 06/27/2021, chest CT 12/01/2020 FINDINGS: There are reticular opacities at the lung bases, consistent with mild chronic interstitial lung disease. No pleural effusion or pneumothorax. The heart size is normal. Median sternotomy wires and mediastinal surgical clips are seen, likely from prior coronary artery bypass grafting. Surgical clips in the right upper quadrant are likely from cholecystectomy. IMPRESSION: 1. Mild chronic interstitial lung disease. Reviewed, dictated and finalized at location A. RITY ASSOCIATE
--- NOTE | 2021-12-04 14:37 | ECG_ITS ---
Measurements Intervals Michie Rate: 56 P: 55 MI: 192 QRS: 70 QRSD: 133 T: -26 QT: 487 QTc: 473 Interpretive Statements SINUS BRADYCARDIA RIGHT BUNDLE BRANCH BLOCK BASELINE ARTIFACT- I, II, III ABNORMAL ECG Electronically Signed On 12-04-2021 15:45:03 SOFTWARE TECHNICIAN by Murali Jc D.O.
[2021-12-04] MEDS: ASPIRIN 81 MG CHEWABLE TABLET 324 MG PO (14:55)
[2021-12-04 14:59] LABS: Basophils Absolute Auto 0.1 K/mm3 (0.0-0.1); Basophils Percent Auto 0.6 % (0.2-1.2); Eosinophils Absolute Auto 0.5 K/mm3 (0-0.3); Eosinophils Percent Auto 5.2 % (0-4.4); Hematocrit 32.6 % (42.0-52.0); Hemoglobin 10.3 g/dL (14.0-18.0); Immature Granulocyte Absolute 0.04 K/mm3 (0.00-0.031); Immature Granulocyte Percent A 0.4 % (0-0.5); Lymphocytes Absolute Auto 1.86 K/mm3 (0.9-3.2); Mean Corpuscular HGB Conc 31.6 g/dl (32-36); Mean Corpuscular Hemoglobin 27.3 pg (26-34); Mean Corpuscular Volume 86.5 fl (80-100); Mean Platelet Volume 9.5 fl (7.4-10.4); Monocytes Absolute Auto 0.8 K/mm3 (0.1-0.6); Monocytes Percent Auto 7.4 % (2.6-8.5); Neutrophils Absolute Auto 7.1 K/mm3 (1.3-6.7); Neutrophils Percent Auto 68.4 % (45.5-73.1); Platelet Count Result 326 k/mm3 (150-375); Red Blood Count 3.77 M/mm3 (4.6-6.20); Red Cell Distribution Width 17.2 % (11.5-14.5); White Blood Count 10.3 K/mm3 (4.5-10.0)
[2021-12-04 15:03] LABS: Alanine Aminotransferase 29 U/L (4-50); Alkaline Phosphatase 109 U/L (38-126); Anion Gap 13 mmol/L (8-16); Aspartate Amino Transferase 38 U/L (17-59); Bilirubin,Total 0.5 mg/dL (0.2-1.3); Blood Urea Nitrogen 20 mg/dL (9-20); Calcium 9.8 mg/dL (8.4-10.2); Carbon Dioxide 22 mmol/L (22-30); Chloride 102 mmol/L (98-107); Estimated CRCL calculation 60 ml/min; Estimated Glomerular Filt Rate > 60; Glucose 198 mg/dL (65-110); Lipase 57 U/L (23-300); Potassium 4.3 mmol/L (3.4-5.0); Sodium 137 mmol/L (137-145)
--- NOTE | 2021-12-04 15:05 | ED.CHESTPAIN ---
HPI - Chest Pain General Chief Complaint: Chest Pain Stated Complaint: chest pain Time Seen by Provider: 12/04/21 14:53 Source: patient Mode of arrival: ambulatory Limitations: no limitations History of Present Illness HPI narrative: Patient is a 76-year-old male complaining of chest pain, left chest, pressure, nonradiating, was 10 out of 10 now down to 2 out of 10 after taking 3 nitros at home started 1 hour prior to arrival. Patient denies any shortness of breath, abdominal pain, nausea, vomiting, diaphoresis, fever or chills. Related Data Home Medications Medication Instructions Recorded Confirmed isosorbide dinitrate 20 mg PO TID 09/25/19 11/16/21 Xarelto 20 mg PO QACDINNER 11/09/19 11/16/21 aspirin [Adult Low Dose Aspirin] 81 mg PO DAILY 11/09/19 11/16/21 metoprolol tartrate 100 mg PO BID 01/24/21 11/16/21 lisinopril 40 mg tablet 40 mg PO DAILY 10/22/21 11/16/21 Allergies Allergy/AdvReac Type Severity Reaction Status Date / Time amoxicillin AdvReac Severe Diarrhea Verified 12/04/21 15:01 cyclobenzaprine AdvReac Confusion Verified 12/04/21 15:01 [From Flexeril] tramadol AdvReac Confusion Verified 12/04/21 15:01 Review of Systems Review of Systems: All systems reviewed & are unremarkable except as noted in HPI and below Constitutional: Constitutional: Denies body ache(s), Denies chills, Denies excessive sweating, Denies fatigue, Denies fever(s), Denies headache(s), Denies lethargy, Denies malaise, Denies weakness and Denies weight loss Eyes: Eyes: Denies blurry vision, Denies change in vision and Denies loss of vision ENT: Denies dizziness, Denies ear discharge, Denies headache(s), Denies lip swelling, Denies epistaxis, Denies nasal congestion, Denies neck pain, Denies throat swelling and Denies tongue swelling Cardiovascular: Cardiovascular: Denies diaphoresis, Denies rapid heart rate, Denies edema, Denies irregular heart rhythm, Denies lightheadedness, Denies palpitations, Denies dyspnea and Denies dyspnea on exertion Respiratory: Respiratory: Denies chest congestion, Denies cough, Denies hemoptysis, Denies dyspnea and Denies dyspnea on exertion Gastrointestinal: Gastrointestinal: Denies abdominal pain, Denies melena, Denies hematochezia, Denies diarrhea, Denies nausea, Denies vomiting and Denies hematemesis Musculoskeletal: Musculoskeletal: Denies abnormal gait, Denies deformity, Denies joint swelling, Denies limited range of motion, Denies neck pain and Denies numbness Neurologic: Denies Abnormal speech present, Denies abnormal gait, Denies confusion, Denies dizziness, Denies headache(s), Denies focal weakness, Denies loss of vision, Denies numbness, Denies Other visual disturbances, Denies Sensory deficit (Neuro) and Denies weakness Psychiatric: Psychiatric: Denies confusion, Denies depression, Denies auditory hallucinations, Denies homicidal ideation and Denies suicidal ideation Endocrine: Endocrine: Denies cold intolerance, Denies excessive sweating, Denies fatigue, Denies heat intolerance and Denies palpitations Hematologic/Lymphatic: Hematologic/Lymphatic: Denies easy bleeding and Denies easy bruising Allergic/Immunologic: Allergic/Immunologic: Denies lip swelling, Denies throat swelling and Denies tongue swelling PMFSH Past Medical History Medical History A-fib (Unknown) Atherosclerotic heart disease of [place] coronary artery without angina pectoris BMI 26.0-26.9,adult BMI 27.0-27.9,adult BMI 28.0-28.9,adult BMI 29.0-29.9,adult BMI 31.0-31.9,adult Bronchitis Cerebrovascular accident (CVA) Coronary artery disease Current mild episode of major depressive disorder Dementia Femoral neck fracture (06/2021) Hiatal hernia with GERD Melena (02/2021) Nausea and vomiting in adult Recurrent UTI Screen for colon cancer Type 2 diabetes mellitus without complications Surgical History Surgical History
[2021-12-04 15:08] LABS: INR 1.2; Partial Thromboplastin Time 28.8 SECONDS (22.3-36.8); Prothrombin Time 14.6 Seconds (11.1-14.7)
[2021-12-04 15:20] LABS: Troponin I 0.039 ng/mL (0.000-0.034)
[2021-12-04] MEDS: NITROGLYCERIN OINTMENT 1 INCH DOSE TRANSDERM (16:18)
--- NOTE | 2021-12-04 17:05 | PC.NURSE ---
ok for patient to order dinner per Dr. Brown
[2021-12-04 18:16] LABS: Troponin I 0.034 ng/mL (0.000-0.034)
[2021-12-04 20:52] LABS: Troponin I 0.036 ng/mL (0.000-0.034)
[2021-12-04 21:09] LABS: SARS-CoV-2 RNA PCR Negative
[2021-12-04] MEDS: ACETAMINOPHEN 325 MG TABLET 650 MG PO (23:14)
--- NOTE | 2021-12-04 23:54 | PM.IMHP ---
H&P: HPI History of Present Illness Date/Time: 12/04/21 2200 this is a 76-year-old male patient with a history of coronary artery disease. He has had a 4 vessel CABG in the past along with a cardiac stent. The patient stated that he developed some left chest pressure that was nonradiating 10/10 approximately 1 hour to arrival. The patient took 3 nitros at home. Patient's chest pain went down to 2/10. Patient no longer complains of any chest discomfort. The patient stated this felt different than his previous chest pain when he had a heart attack. No fever no chills. No nausea vomiting diarrhea or abdominal pain. No shortness of breath. Patient's EKG shows sinus bradycardia right bundle-branch block. Chest x-ray was read as mild chronic interstitial lung disease. H&H is 10.3 and 32.6. Blood sugar 198. Troponin 0.039, 0.034, and 0.036. Patient is being admitted to observation on the date of service 12/04/2021. Chief Complaint: Chest pain Review of Systems Review of Systems: All systems reviewed & are unremarkable except as noted in HPI and below Constitutional: Constitutional: Reports as per HPI and Reports no additional constitutional complaints Eyes: Eyes: Reports as per HPI and Reports no additional eye complaints ENT: Reports system reviewed and no additional complaints, except as documented and Reports Normal hearing present Cardiovascular: Cardiovascular: Reports no additional cardiovascular complaints Respiratory: Respiratory: Reports no additional respiratory complaints and Reports no additional respiratory complaints Gastrointestinal: Gastrointestinal: Reports as per HPI and Reports no additional gastrointestinal complaints Musculoskeletal: Musculoskeletal: Reports no additional musculoskeletal complaints Integumentary/Breasts: Skin/Breast: Reports system reviewed and no additional complaints, except as docu and Reports as per HPI Neurologic: Reports system reviewed and no additional complaints, except as documented, Reports as per HPI and Reports Normal hearing present Psychiatric: Psychiatric: Reports no additional psychiatric complaints and Reports as per HPI Endocrine: Endocrine: Reports no additional endocrine complaints Hematologic/Lymphatic: Hematologic/Lymphatic: Reports no additional hematologic/lymphatic complaints Allergic/Immunologic: Allergic/Immunologic: Reports no additional allergic/immunologic complaints [facility] Past Medical History Medical History (Updated 12/05/21 @ 00:04 by Jennifer Meek NP) A-fib (Unknown) Atherosclerotic heart disease of [place] coronary artery without angina pectoris BMI 26.0-26.9,adult BMI 27.0-27.9,adult BMI 28.0-28.9,adult BMI 29.0-29.9,adult BMI 31.0-31.9,adult Bronchitis Cerebrovascular accident (CVA) Coronary artery disease Current mild episode of major depressive disorder Dementia Diabetes mellitus (Unknown) Femoral neck fracture (06/2021) GERD (gastroesophageal reflux disease) (Unknown) Hiatal hernia with GERD Hyperlipidemia (Unknown) Hypertension (Unknown) Melena (02/2021) Nausea and vomiting in adult Recurrent UTI Screen for colon cancer Type 2 diabetes mellitus without complications Surgical History Surgical History (Updated 12/05/21 @ 00:04 by Jennifer Meek NP) H/O heart artery stent H/O right knee surgery History of right hip replacement Hx of CABG Four vessel CABG Family History Family History Father Hypertension Mother Cerebrovascular accident Social History Social History (Updated 12/05/21 @ 00:09 by Jennifer Meek NP) Social History: The patient is a lifelong nonsmoker. 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 Code status DNR Smoking status: Never smoker Second hand toba
[2021-12-05] VITALS (12 sets, daily range): BP systolic 141–164; BP diastolic 55–86; PULSE 54–67; RESP 14–19; TEMP 36.4–36.6; O2SAT 97–98
--- NOTE | 2021-12-05 | ECHO_ITS ---
Patient Info Name: Vidal Chaudhary Age: 76 years : 1945 Gender: Male Ht: 71 in Wt: 196 lbs BSA: 2.13 m2 HR: 57 bpm BP: 156 / 67 mmHg Heart Rhythm: Sinus Rhythm Technical Quality: Good Exam Date: 12/05/2021 9:51 AM Exam Location: [facility] Pulmonary Exam Room: [facility] Patient Status: Inpatient Admit Date: 12/04/2021 Staff Ordering Physician: Jennifer Meek NP Engraver Tender: Sona Holland RDCS Attending Provider: Bianca Carver MD Referring Physician: Fantasma BRAR; Exam Type: CA echo doppler color flow Study Info Indications - CHEST PAIN CAD HX/O CABG Complete two-dimensional, color flow and Doppler transthoracic echocardiogram is performed. Summary 1. Complete two-dimensional, color flow and Doppler transthoracic echocardiogram is performed. 2. Left ventricular chamber dimension is normal. 3. Left ventricular systolic function is moderately reduced, estimated at 40-45%. 4. There is mildly increased left ventricular wall thickness. 5. Left ventricular septal wall motion is abnormal with septal motion related to bundle branch block. 6. The left ventricular diastolic function is grade III diastolic dysfunction. 7. Left atrial chamber dimension is moderately enlarged. 8. There is mild to moderate mitral valve regurgitation. 9. There is no aortic valve stenosis. Left Ventricle Left ventricular chamber dimension is normal. Left ventricular systolic function is moderately reduced, estimated at 40-45%. There is mildly increased left ventricular wall thickness. Left ventricular septal wall motion is abnormal with septal motion related to bundle branch block. The left ventricular diastolic function is grade III diastolic dysfunction. Global longitudinal strain is moderately elevated at -10 %. Right Ventricle Right ventricular chamber dimension is normal. Right ventricular systolic function is reduced. Left Atria Left atrial chamber dimension is moderately enlarged. Right Atria Right atrial chamber dimension is mildly enlarged. Aortic Valve The aortic valve is trileaflet. There is no aortic valve stenosis. There is no aortic valve regurgitation. Pulmonic Valve The pulmonic valve is normal. There is trace pulmonic regurgitation. Mitral Valve The mitral valve has thickened leaflets. There is mild to moderate mitral valve regurgitation. The mitral valve annulus is mildly calcified. Tricuspid Valve The tricuspid valve leaflets are normal. There is trace tricuspid valve regurgitation. No pulmonary hypertension, estimated pulmonary arterial systolic pressure is 32 mmHg. Pericardium/Pleural The pericardium appears normal. There is no pericardial effusion. Inferior Vena Cava Normal inferior vena cava with >50% collapse upon inspiration consistent with normal right atrial pressure, 5 mmHg. Aorta The aortic root size at the sinus of Valsalva is normal. Left Ventricular Outflow Tract Name Value Normal LVOT 2D LVOT Diameter 2.1 cm LVOT Doppler LVOT Peak Gradient 4 mmHg LVOT Mean Gradient 2 mmHg
--- NOTE | 2021-12-05 02:12 | ADMGEN ---
This patient, Vidal Chaudhary, was admitted to [facility] as an IMU overflow on 12/04/2021 at 2135. Patient/family oriented to hospital policies and general routines including ID bracelet, bed and alarms, visiting hours, pain management, procedures, bathroom and other care routines, personal items, smoking policy, room service/diet, and visiting hours. Information on how to activate the Rapid Response Team has been discussed. Patient/Family are encouraged to report perceived risks to care and to ask questions if they do not understand what they are told or what they should do.
[2021-12-05] MEDS: INSULIN GLARGINE (*BKC) 100 UNITS/ML 35 UNITS SUB-Q (02:26)
[2021-12-05 02:31] LABS: Glucose Point of Care 207 mg/dl (65-105)
[2021-12-05 03:45] LABS: Hemoglobin A1C 7.5 % (<5.7)
[2021-12-05 08:03] LABS: Glucose Point of Care 121 mg/dl (65-105)
--- NOTE | 2021-12-05 11:12 | PM.CNCAR ---
Assessment and Plan Assessment and plan (1) Atypical chest pain: Code(s): R07.89 - Other chest pain Status: Acute Assessment and Plan: High reproducible chest pain most likely musculoskeletal etiology. Flat curve, minimal troponin elevation not consistent with acute coronary syndrome and/or plaque rupture type 2 infarction and chronic mild troponin elevation. EKG unchanged without ischemic changes. History of prior CABG HARRIS to LAD SVG to vein grafts ramus and OM posterolateral branch. Tylenol for pain. 2D echocardiogram personally reviewed EF 40-45% consistent with prior to EF 43%. No new or acute changes. Stable for discharge home. He is compensated without CHF at this time. His symptoms are severe and unrelenting present to the nearest ER via EMS. Patient and his verbalized understanding and agreed with plan of care. All questions answered to their satisfaction. (2) Coronary artery disease: Code(s): I25.10 - Atherosclerotic heart disease of [place] coronary artery without angina pectoris Status: Acute Assessment and Plan: As above. Continue aggressive medical therapy. Continue conservative medical therapy at this time. (3) Type 2 myocardial infarction: Code(s): I21.A1 - Myocardial infarction type 2 Status: Acute Assessment and Plan: As above, atypical chest pain chronic mild flat troponin elevation not consistent with acute coronary syndrome, type 2 infarction not due to myocardial ischemia. No indications for ischemic evaluation at this time. Discussed with Dr. Aguilar who he will follow up with as an outpatient in the next month. (4) Hypertension: Onset Date: Unknown Qualifiers: Hypertension type: unspecified Qualified Code(s): I10 - Essential (primary) hypertension Code(s): I10 - Essential (primary) hypertension Status: Chronic Assessment and Plan: Not ideally controlled but stable. Continue home antihypertensive regimen. (5) Mixed diabetic hyperlipidemia associated with type 2 diabetes mellitus: Code(s): E11.69 - Type 2 diabetes mellitus with other specified complication; E78.2 - Mixed hyperlipidemia Status: Acute Assessment and Plan: Continue statin. (6) Paroxysmal atrial fibrillation: Code(s): I48.0 - Paroxysmal atrial fibrillation Status: Acute Assessment and Plan: history of atrial tachycardia status post ablation, paroxysmal atrial fibrillation status post PVI, history of mild cardiomyopathy. Maintaining sinus rhythm on metoprolol tartrate 100 mg b.i.d. and Xarelto. History of Present Illness History of Present Illness Consult date/time: Date of service: 12/05/21 11:12 Cardiology consultation at the request of Jennifer Meek of the [facility] service for opinion regarding chest pain elevated troponin. Requesting physician: Jennifer Meek NP Consult reason: chest pain and Other (elevated troponin I) Reason For Visit: Chest Pain, Elevated Troponin Narrative: Patient is a very pleasant 76-year-old male with a history of prior CABG 4 vessel, stent, atrial tachycardia and paroxysmal atrial fibrillation status post ablation respectively on anticoagulation history of diabetes mellitus, hypertension, dyslipidemia, dementia who presented to the emergency depart with complaints of sharp left-sided chest pain he states evaluating toward his back fairly constant occurring while lying down. Denies associated exertional symptoms. Denies ROSS, worsening fatigue activity tolerance. Described having undergone a right hip surgical repair, knee problems in June and ensuing therapy. No near-syncope, syncope or palpitations. Troponin elevation mild, flat curve no new ischemic changes on EKG. Chest pain minimal highly reproducible. Denies trauma, falls, cough or exacerbation with walking. No fevers, chills or recent illnesses. He took 3 nitroglycerin at home and states his chest pain sophie
[2021-12-05] MEDS: ACETAMINOPHEN 325 MG TABLET 650 MG PO (11:23)
[2021-12-05] MEDS: ASPIRIN 81 MG ENTERIC TABLET PO (11:26)
[2021-12-05] MEDS: ISOSORBIDE DINITRATE 20 MG TABLET PO (11:27)
[2021-12-05] MEDS: ATORVASTATIN 40 MG TABLET BY MOUTH (11:27)
[2021-12-05] MEDS: lisinopriL 20 MG TABLET 40 MG PO (11:28)
[2021-12-05] MEDS: metFORMIN HCL 500 MG TABLET 1000 MG PO (11:28)
[2021-12-05] MEDS: SERTRALINE HCL 50 MG TABLET 100 MG BY MOUTH (11:29)
[2021-12-05] MEDS: MEMANTINE 10 MG TABLET PO (11:29)
[2021-12-05] MEDS: hydroCHLOROthiazide 12.5 MG CAPSULE PO (11:30)
[2021-12-05] MEDS: METOPROLOL TARTRATE 50 MG TAB 100 MG PO (11:30)
[2021-12-05] MEDS: EMPAGLIFLOZIN 10 MG TABLET PO (11:31)
[2021-12-05] MEDS: buPROPion HCL XL (24 HR) 150 MG TABCR PO (11:31)
[2021-12-05] MEDS: LIDOCAINE 5% PATCH 1 PATCH TRANSDERM (11:42)
[2021-12-05 12:10] LABS: Glucose Point of Care 225 mg/dl (65-105)
--- NOTE | 2021-12-05 14:49 | PM.DS ---
DS: Admitting Diagnosis Discharge Date 12/05/2021 Admitting Diagnosis Chest pain DS: Discharge Diagnosis Discharge Diagnosis (1) Chest pain due to coronary artery disease: Code(s): I25.119 - Atherosclerotic heart disease of [place] coronary artery with unspecified angina pectoris Status: Acute Assessment and Plan: Patient had a mild bump in his troponin. He has a history of coronary artery disease with a over vessel CABG and cardiac stent. Continue with isosorbide. pt seen by cardiology ok for dc after echo. looks like atypical chest pain pt given lidoderm patch and ppi on discharge. (2) Diabetes mellitus: Onset Date: Unknown Qualifiers: Diabetes mellitus complication status: without complication Diabetes mellitus long term care social worker insulin use: with long term care social worker use Diabetes mellitus type: type 2 Qualified Code(s): E11.9 - Type 2 diabetes mellitus without complications; Z79.4 - correction (current) use of insulin Code(s): E11.9 - Type 2 diabetes mellitus without complications Status: Chronic Assessment and Plan: Accu-Cheks AC and HS with sliding scale insulin. Continue Jardiance and glargine. Continue metformin. (3) Hyperlipidemia: Onset Date: Unknown Qualifiers: Hyperlipidemia type: unspecified Qualified Code(s): E78.5 - Hyperlipidemia, unspecified Code(s): E78.5 - Hyperlipidemia, unspecified Status: Chronic Assessment and Plan: Continue with atorvastatin. (4) GERD (gastroesophageal reflux disease): Onset Date: Unknown Qualifiers: Esophagitis presence: esophagitis presence not specified Qualified Code(s): K21.9 - Gastro-esophageal reflux disease without esophagitis Code(s): K21.9 - Gastro-esophageal reflux disease without esophagitis Status: Chronic Assessment and Plan: Continue with pantoprazole (5) Hypertension: Onset Date: Unknown Qualifiers: Hypertension type: unspecified Qualified Code(s): I10 - Essential (primary) hypertension Code(s): I10 - Essential (primary) hypertension Status: Chronic Assessment and Plan: Continue with lisinopril and metoprolol (6) Dementia: Qualifiers: Dementia behavioral disturbance: with behavioral disturbance Dementia type: unspecified type Qualified Code(s): F03.91 - Unspecified dementia with behavioral disturbance Code(s): F03.90 - Unspecified dementia without behavioral disturbance Status: Acute Assessment and Plan: Continue with Namenda (7) A-fib: Onset Date: Unknown Qualifiers: Atrial fibrillation type: unspecified chronic Qualified Code(s): I48.20 - Chronic atrial fibrillation, unspecified Code(s): I48.91 - Unspecified atrial fibrillation Status: Chronic Assessment and Plan: Patient is in sinus rhythm continue with metoprolol and Xarelto DS: Summary Hospital Course Hospital Course: Patient had a mild bump in his troponin. He has a history of coronary artery disease with a over vessel CABG and cardiac stent. Continue with isosorbide. pt seen by cardiology ok for dc after echo. looks like atypical chest pain pt given lidoderm patch and ppi on discharge. Time Spent with Patient Time attestation: Total time spent providing and/or coordinating discharge services:45 minutes on day of dischrage Exam Const: General: cooperative, healthy appearing, comfortable, no acute distress, well developed, alert, awake and Physically active Nutritional Appearance: average body habitus and well nourished Orientation/consciousness: oriented to person, oriented to place, oriented to time and patient oriented x3 Limitations: no limitations HENMT: Head: normal to inspection, No palpable skull fracture present and normocephalic Ears: hearing grossly normal bilaterally and external ears normal General nose exam: Normal external nose present Throat: posterior orop
== END 2021-12-05 16:40 | disposition home or self-care (01) ==
LOC: ANHED 15:50 → ANHCPC 20:40
PROVIDERS: Emergency Medicine; Nurse Practitioner; Admitting Provider Family Medicine; Emergency Provider Emergency Medicine; PCP Family Medicine; Visit Provider Family Medicine
DX: I25.119 Atherosclerotic heart disease of native coronary artery with unspecified angina pectoris (principal); F03.90 Unspecified dementia, unspecified severity, without behavioral disturbance, psychotic disturbance, mood disturbance, and anxiety; E11.9 Type 2 diabetes mellitus without complications; E78.2 Mixed hyperlipidemia; I48.0 Paroxysmal atrial fibrillation; K21.9 Gastro-esophageal reflux disease without esophagitis; I10 Essential (primary) hypertension; K44.9 Diaphragmatic hernia without obstruction or gangrene; Z95.1 Presence of aortocoronary bypass graft; Z86.73 Personal history of transient ischemic attack (TIA), and cerebral infarction without residual deficits; Z79.84 Long term (current) use of oral hypoglycemic drugs; Z79.4 Long term (current) use of insulin; Z79.01 Long term (current) use of anticoagulants; Z79.82 Long term (current) use of aspirin; Z20.822 Contact with and (suspected) exposure to COVID-19
CPT/HCPCS: 36415; 71046; 80053; 82948; 83036; 83690; 84484; 85025; 85610; 85730; 93005; 93306; 99285; A9270; C9803; G0378; J1815; U0003; U0005

== ENCOUNTER 2021-12-26 08:48 | Observation (INO) | payer MEDICARE, OTHER, SELFPAY ==
[2021-12-26] VITALS (12 sets, daily range): BP systolic 141–198; BP diastolic 72–99; PULSE 55–77; RESP 14–20; TEMP 35.8–36.3; O2SAT 90–100; BMI 25.2; BMI 25.4
--- NOTE | ~2021-12-26 | XR_ITS ---
EXAMINATION: XR chest 2V EXAM DATE: 12/26/2021 09:48 INDICATION: Fall this A.M., R rib pain. TECHNIQUE: Frontal and lateral projections of the chest obtained and reviewed. Comparison is made to prior examination from 12/04/2021. FINDINGS: Bilateral old rib fractures are identified. No acute displaced right rib fracture identifi ed. Borderline cardiomegaly. Sternotomy wires are present without findings to suggest sternal dehisce nce. There are cholecystectomy clips. No confluent consolidation, pneumothorax or pleural effusion gaona spected. There are bony degenerative changes. IMPRESSION: No acute cardiopulmonary findings. Reviewed, dictated and finalized at location A. Y DUTY TRUCK MECHANIC
--- NOTE | ~2021-12-26 | CT_ITS ---
EXAMINATION: CT pelvis wo con EXAM DATE: 12/26/2021 10:20 INDICATION: fall, pubic rami fractures. TECHNIQUE: Spiral CT pelvis was performed without contrast. Axial, coronal and sagittal images wer e reviewed. The dose-length product (DLP) for this examination was 301.07 mGy-cm. The exposure was tailored according to patient size (auto mA exposure control), and iterative reconstruction (ASIR) wa s used as additional dose reduction technique. Correlation is made to x-ray same date. FINDINGS: Acute minimally displaced right inferior ramus fracture. Acute comminuted mildly displaced right pubic symphysis and superior ramus fractures. There is right hip gamma nail in expected positio n bridging a chronic subcapital femoral neck fracture. No other pelvic or sacral fractures identified . Prostate and bladder are unremarkable. Mild scattered colonic diverticulosis. Moderate to severe sc attered arterial sclerosis. IMPRESSION: 1. Acute right rami, pubic symphysis fractures. 2. Chronic findings. Reviewed, dictated and finalized at location A. EL DIRECTOR
--- NOTE | ~2021-12-26 | XR_ITS ---
EXAMINATION: XR hip RT 2V w AP pelvis EXAM DATE: 12/26/2021 09:48 INDICATION: Fall this A.M., R hip pain. TECHNIQUE: Right hip frontal, crosstable lateral projections for interpretation. Frontal projection p milad. Comparison is made to prior examination from 11/16/2021. FINDINGS: There is right hip gamma nail in expected position. Acute displaced right pubic symphysis, superior and inferior rami fractures. There could also be radiographically occult sacral fracture or fractures. A pelvis CT without contrast recommended for further evaluation. No evidence of acute righ t hip fracture. Moderate bilateral hip osteoarthritis. IMPRESSION: Acute comminuted right rami, pubis fractures; recommend CT pelvis without contrast. Reviewed, dictated and finalized at location A. D FINISHER IMPRESSION: Acute comminuted right rami, pubis fractures; recommend CT pelvis w ithout contrast.
--- NOTE | ~2021-12-26 | CT_ITS ---
EXAMINATION: CT brain wo con DATE: 12/26/2021 09:30 INDICATION: Neck pain. Fall. TECHNIQUE: Computed tomography (CT) of the head was performed without intravenous contrast. The mA wa s adjusted according to patient size. Iterative reconstruction technique was employed. The dose-lengt h product was 605.33 mGy-cm. COMPARISON: Head CT 06/27/2021 FINDINGS: There is an old lacunar infarct in the left lentiform nucleus. There are scattered areas of low attenuation in the cerebral white matter. There is no intracranial hemorrhage, acute infarction, or abnormal intracranial mass lesion. The ventricles are normal in size. The orbits are normal. Ther e is mucosal thickening in the paranasal sinuses. There is a small right mastoid effusion. IMPRESSION: 1. Old lacunar infarct in left lentiform nucleus. 2. Stable moderate nonspecific cerebral white matter disease, which likely represents chronic small v essel ischemic disease. Reviewed, dictated and finalized at location A. RNATIONAL SPECIALIST IMPRESSION: 1. Old lacunar infarct in left lentiform nucleus. 2. Stable moderate nonspecific cerebral white matter disease, which likely repr esents chronic small vessel ischemic disease.
--- NOTE | ~2021-12-26 | CT_ITS ---
EXAMINATION: CT cervical spine wo con DATE: 12/26/2021 09:30 INDICATION: Neck pain. Fall. TECHNIQUE: Computed tomography (CT) of the cervical spine was performed without intravenous contrast. Automated exposure control and iterative reconstruction technique were employed. The dose-length pro duct was 605.33 mGy-cm. COMPARISON: CT cervical spine 06/27/2021 FINDINGS: There is 3 degrees levocurvature of cervicothoracic spine. There is mild chronic anterior w edging of T1 vertebral body. There is mildly decreased disc height at C6-C7. The following disc level s are specifically discussed: C2-C3: There is ankylosis of right uncovertebral joint with mild hypertrophy. There is mild left face t joint osteoarthritis. There is ankylosis of right facet joint with mild hypertrophy. There is mild right neural foraminal stenosis. There is no central canal stenosis. C3-C4: There is severe bilateral uncovertebral joint osteoarthritis. There is moderate bilateral face t joint osteoarthritis. There is mild bilateral neural foraminal stenosis. There is mild central liya l stenosis. C4-C5: There is severe bilateral uncovertebral joint osteoarthritis. There is mild right and moderate left facet joint osteoarthritis. There is mild bilateral neural foraminal stenosis. There is mild ce ntral canal stenosis. C5-C6: There is severe right and mild left uncovertebral joint osteoarthritis. There is mild right an d severe left facet joint osteoarthritis. There is mild right neural foraminal stenosis. There is mil d central canal stenosis. C6-C7: There is moderate bilateral uncovertebral joint osteoarthritis. There is mild bilateral facet joint osteoarthritis. There is mild right neural foraminal stenosis. There is mild central canal sten osis. C7-T1: There is no uncovertebral joint osteoarthritis. There is moderate bilateral facet joint osteoa rthritis. There is no neural foraminal stenosis. There is mild central canal stenosis. IMPRESSION: 1. No acute fracture. 2. Mild cervical spondylosis. Reviewed, dictated and finalized at location A. NT FINISHER APPRENTICE
--- NOTE | 2021-12-26 09:04 | ECG_ITS ---
Measurements Intervals [place] Rate: 56 P: 40 WI: 185 QRS: 56 QRSD: 154 T: 1 QT: 487 QTc: 473 Interpretive Statements SINUS BRADYCARDIA WITH OCCASIONAL SUPRAVENTRICULAR PREMATURE COMPLEXES RIGHT BUNDLE BRANCH BLOCK ABNORMAL ECG COMPARED TO ECG 12/04/2021 14:36:17 NO SIGNIFICANT CHANGES Electronically Signed On 12-26-2021 13:24:41 APNS by Prabhu Simon M.D.
--- NOTE | 2021-12-26 09:08 | ED.FALL ---
HPI - Fall General Chief Complaint: Fall <Anyi Robledo PA-C - Last Filed: 12/26/21 12:56> Stated Complaint: fall, hip injury <Anyi Robledo PA-C - Last Filed: 12/26/21 12:56> Time Seen by Provider: 12/26/21 08:55 <Anyi Robledo PA-C - Last Filed: 12/26/21 12:56> Source: patient and family <MILENA Louie Last Filed: 12/26/21 12:56> Mode of arrival: EMS <MILENA Louie Last Filed: 12/26/21 12:56> Limitations: dementia <MILENA Louie Last Filed: 12/26/21 12:56> History of Present Illness HPI Narrative: Patient is a 76-year-old male with a history of dementia who presented to the ED, via EMS, with complaints of a fall. Patient's at bedside reports she left to take her grandchildren to school this morning and returned home to find the patient fallen on his right side in the hallway. She states his urinal was at one end of the hallway and the walker was on top of him. She notes the patient is weak at baseline and requires a walker for ambulation. Patient has a history of dementia and does not remember how the fall occurred. He complains of pain to his right hip and right groin. He is unsure if he hit his head or lost consciousness. EMS reported he complained of neck pain, c-collar was placed prior to arrival. Patient denies any vision changes, decreased sensation, chest pain, abdominal pain, nausea, vomiting. Patient is on Xarelto for his history of atrial fibrillation. Patient has a history of a right hip fracture in June 2021 which was repaired with ORIF by Dr. Clifford. He received rehab at [place] after the surgery. <MILENA Louie Last Filed: 12/26/21 12:56> Related Data Home Medications: Home Medications Medication Instructions Recorded Confirmed isosorbide dinitrate 20 mg PO TID 09/25/19 12/11/21 Xarelto 20 mg PO QACDINNER 11/09/19 12/11/21 aspirin [Adult Low Dose Aspirin] 81 mg PO DAILY 11/09/19 12/11/21 metoprolol tartrate 100 mg PO BID 01/24/21 12/11/21 Kyle PhilippePen U-100 Insulin 30 unit SUB-Q HS 12/26/21 quinapril mg 12/26/21 <Anyi Robledo PA-C - Last Filed: 12/26/21 12:56> Allergies/Adverse Reactions: Allergies Allergy/AdvReac Type Severity Reaction Status Date / Time amoxicillin AdvReac Severe Diarrhea Verified 12/26/21 09:05 cyclobenzaprine AdvReac Confusion Verified 12/26/21 09:05 [From Flexeril] tramadol AdvReac Confusion Verified 12/26/21 09:05 <Anyi Robledo PA-C - Last Filed: 12/26/21 12:56> Review of Systems Review of Systems: CONSTITUTIONAL: Denies fever, chills, or sweats. EYES: Denies visual changes. CARDIOVASCULAR: Denies chest pain. RESPIRATORY: Denies cough or dyspnea. GASTROINTESTINAL: Denies abdominal pain, nausea, vomiting, or diarrhea. GENITOURINARY: Denies dysuria or hematuria. MUSCULOSKELETAL: Reports pain to right hip and right groin. Denies back pain or myalgia. NEUROLOGIC: Denies headache, numbness, or weakness. <Anyi Robledo PA-C - Last Filed: 12/26/21 12:56> All systems reviewed & are unremarkable except as noted in HPI and below <Anyi Robledo PA-C - Last Filed: 12/26/21 12:56> [facility] Past Medical History Medical History: Medical History A-fib (Unknown) Atherosclerotic heart disease of [place] coronary artery without angina pectoris BMI 26.0-26.9,adult BMI 27.0-27.9,adult BMI 28.0-28.9,adult BMI 29.0-29.9,adult BMI 31.0-31.9,adult Bronchitis Cerebrovascular accident (CVA) Coronary artery disease Current mild episode of major depressive disorder Dementia Diabetes mellitus (Unknown) Femoral neck fracture (06/2021) GERD (gastroesophageal reflux disease) (Unknown) Hiatal hernia with GERD Hyperlipidemia (Unknown) Hypertension (Unknown) Melena (02/2021) Nausea and vomiting in adult Recurrent UTI Screen for colon cancer Type 2 diabetes mellitus without complications <Anyi Parson
[2021-12-26 11:11] LABS: Basophils Absolute Auto 0.1 K/mm3 (0.0-0.1); Basophils Percent Auto 0.5 % (0.2-1.2); Eosinophils Absolute Auto 0.1 K/mm3 (0-0.3); Eosinophils Percent Auto 0.8 % (0-4.4); Hematocrit 37.4 % (42.0-52.0); Hemoglobin 11.7 g/dL (14.0-18.0); Immature Granulocyte Absolute 0.13 K/mm3 (0.00-0.031); Immature Granulocyte Percent A 0.9 % (0-0.5); Lymphocytes Absolute Auto 1.31 K/mm3 (0.9-3.2); Mean Corpuscular HGB Conc 31.3 g/dl (32-36); Mean Corpuscular Hemoglobin 26.7 pg (26-34); Mean Corpuscular Volume 85.2 fl (80-100); Mean Platelet Volume 9.6 fl (7.4-10.4); Monocytes Absolute Auto 0.8 K/mm3 (0.1-0.6); Monocytes Percent Auto 5.8 % (2.6-8.5); Platelet Count Result 307 k/mm3 (150-375); Red Blood Count 4.39 M/mm3 (4.6-6.20); Red Cell Distribution Width 17.5 % (11.5-14.5); White Blood Count 14.5 K/mm3 (4.5-10.0)
[2021-12-26 11:36] LABS: Alanine Aminotransferase 39 U/L (4-50); Alkaline Phosphatase 155 U/L (38-126); Anion Gap 8 mmol/L (8-16); Aspartate Amino Transferase 42 U/L (17-59); Bilirubin,Total 0.7 mg/dL (0.2-1.3); Blood Urea Nitrogen 22 mg/dL (9-20); Calcium 9.5 mg/dL (8.4-10.2); Carbon Dioxide 27 mmol/L (22-30); Chloride 106 mmol/L (98-107); Estimated CRCL calculation 60 ml/min; Estimated Glomerular Filt Rate > 60; Glucose 174 mg/dL (65-110); Potassium 3.6 mmol/L (3.4-5.0); Sodium 141 mmol/L (137-145)
[2021-12-26] MEDS: ONDANSETRON INJ 4 MG/2 ML VIAL IV PUSH (11:39)
[2021-12-26] MEDS: MORPHINE SULFATE (*CRX) 2 MG/ML INJ IV PUSH (11:41)
[2021-12-26 11:46] LABS: Troponin I 0.029 ng/mL (0.000-0.034)
[2021-12-26 12:12] LABS: INR 1.4; Prothrombin Time 16.6 Seconds (11.1-14.7)
[2021-12-26 12:39] LABS: Add Urine Microscopic? YES; Appearance Urine Cloudy (Clear); Bilirubin Urine Negative (Negative); Blood Urine 1+ (Negative); Color Urine Yellow (Yellow); Glucose Urine UA 3+ mg/dL (Negative); Ketones Urine Trace mg/dL (Negative); Leukocyte Esterase Ur 1+ LEU/UL (Negative); Nitrate Urine Negative (Negative); Protein Urine 2+ mg/dL (Negative); Specific Grav Ur 1.029 (1.001-1.035); Urobilinogen Urine Negative mg/dL (<2.0); WBC Urine 31-50 /hpf
--- NOTE | 2021-12-26 14:14 | PCOTNOTE ---
Patient has a acute pelvic fracture and is waiting for ortho consult. Will wait for orders and WB status from ortho.
--- NOTE | 2021-12-26 15:00 | PM.IMHP ---
H&P: HPI History of Present Illness Date/Time: 12/26/21 15:00 Chief Complaint: Unwitnessed fall. Narrative: This is a 76-year-old male with history of dementia, insulin-dependent diabetes, hypertension, coronary artery disease, paroxysmal atrial fibrillation on chronic anticoagulation, and chronic anemia who presented to the emergency department via EMS from home for evaluation after an unwitnessed fall. Given his dementia some of the following information is obtained via a review of his electronic medical records as well as discussions with his . Per the , she left the home to take their grand children to school this morning and when she returned the patient was lying in the hallway on his right side and his walker was up turned on top of him. He did not remember falling when she questioned him. On arrival to the emergency department he was complaining of right hip and groin pain and a subsequent CT of the pelvis showed acute rate rami and pubic symphysis fractures and he is being admitted in this setting for pain control and PT/OT evaluation. CT of the head and neck did not demonstrate any acute findings. At the time my evaluation he has no significant complaints although he has moderate discomfort when attempting to move his legs. He reports a recent urinary tract infection and he still has some mild dysuria but nothing significant. He is not certain if he had is had are not but he is not having any pain or discomfort in his head or neck. He denies fever, chills, and sweats. No chest pain or shortness of breath. No nausea or vomiting. Review of Systems Review of Systems: Twelve systems were reviewed and are negative except for as per HPI. Somewhat limited and the accuracy is questionable given his short-term memory loss. [facility] Past Medical History Medical History Cerebrovascular accident Chronic anticoagulation Coronary artery disease Current mild episode of major depressive disorder Dementia Fracture of neck of right femur (06/2021) Gastroesophageal reflux disease Hiatal hernia with GERD Hyperlipidemia Hypertension Insulin dependent type 2 diabetes mellitus Melena (02/2021) Paroxysmal atrial fibrillation Surgical History Surgical History History of arthroscopy of right knee History of coronary artery stent placement History of four vessel coronary artery bypass graft History of right hip replacement Family History Family History Father Hypertension Mother Cerebrovascular accident Social History Social History (Updated 12/26/21 @ 23:36 by Karen Daly PA-C) Social History: . Lives with his in [place]. 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 Lifelong nonsmoker. No alcohol or illicit substance abuse. [id number]: Star Chaudhary (). Code status: Do not resuscitate. Meds Home Medications and Allergies Home Medications Medication Instructions Recorded Confirmed Type isosorbide dinitrate 20 mg PO TID 09/25/19 12/26/21 History Xarelto 20 mg PO QACDINNER 11/09/19 12/26/21 History aspirin [Adult Low Dose Aspirin] 81 mg PO DAILY 11/09/19 12/26/21 History flash glucose scanning reader #1 ea 11/28/20 12/11/21 Rx flash glucose sensor #6 ea 11/28/20 12/11/21 Rx metoprolol tartrate 100 mg PO BID 01/24/21 12/26/21 History insulin syringe-needle U-100 1 mL #100 each 06/04/21 12/11/21 Rx 31 gauge x 03/04 hydrochlorothiazide 25 mg tablet 12.5 mg PO DAILY #90 tablet 06/12/21 12/26/21 Rx donepezil 10 mg tablet 10 mg PO ONCE #90 tablet 08/20/21 12/26/21 Rx empagliflozin 10 mg tablet 10 mg PO DAILY #90 tablet 09/26/21 12/26/21 Rx linagliptin 5 mg tablet 5 mg PO QACDINNER #90 tablet 09/26/21 12/26/21 Rx sertraline 100 mg tablet See Rx Instructions .ROUTE 10/15/21 12/26/21 Rx .COMPLEX #180 tablet atorvastatin 40 mg table
[2021-12-26 15:08] LABS: Hemoglobin A1C 7.7 % (<5.7)
--- NOTE | 2021-12-26 15:14 | ADMGEN ---
This patient, Vidal Chaudhary, was admitted to 3 [facility] Surg Room 312-01. Patient/family oriented to hospital policies and general routines including ID bracelet, bed and alarms, visiting hours, pain management, procedures, bathroom and other care routines, personal items, smoking policy, room service/diet, and visiting hours. Admitted at 15:02 by Sixto Mahajan RN. Information on how to activate the Rapid Response Team has been discussed. Patient/Family are encouraged to report perceived risks to care and to ask questions if they do not understand what they are told or what they should do.
[2021-12-26 16:13] LABS: Glucose Point of Care 167 mg/dl (65-105)
--- NOTE | 2021-12-26 18:14 | PM.CNOR ---
Assessment and Plan Assessment and plan (1) Closed fracture of right side of symphysis pubis: Qualifiers: Encounter type: initial encounter Qualified Code(s): S32.591A - Other specified fracture of right pubis, initial encounter for closed fracture Code(s): S32.591A - Other specified fracture of right pubis, initial encounter for closed fracture Status: Acute (2) Fracture of inferior pubic ramus: Onset Date: 12/26/21 Qualifiers: Encounter type: initial encounter Fracture type: closed Laterality: right Qualified Code(s): S32.591A - Other specified fracture of right pubis, initial encounter for closed fracture Code(s): S32.599A - Other specified fracture of unspecified pubis, initial encounter for closed fracture Status: Acute Assessment and Plan: Patient evaluation status post injury. The history, physical exam and radiographs reviewed with the patient and family. Type of fracture discussed in detail. patient with unwitnessed fall from suspected standing height while at home today. Anterior in right-sided pelvis fractures. Previous right hip fracture with good healing and no interval change. Treatment options including operative and non operative treatment reviewed. Risks, benefits and alternatives of each treatment discussed in detail. The patient has declined surgical treatment. Risks of treatment decision discussed in detail. Potential problems with displacement of the fracture, loss of alignment, nonunion, malunion and dysfunction discussed in detail. The patient's questions were answered. They verbalized understanding and agreement. Conservative treatment with immobilization, ice, compression and elevation. PT/OT. Weight bear as tolerated. We will attempt to mobilize. Will most likely need long-term placement. Pain control. DVT prophylaxis. Will follow History of Present Illness HPI Consult date: 12/26/21 Requesting physician: Anyi Robledo PA-C Chief complaint: R public ramus and symphysis fractures Narrative: 76-year-old gentleman known to the Orthopedic service for previous right hip intertrochanteric fracture and status post surgery June 2021. Patient with a history of dementia, weakness and balance problems. Was in bed at home when Family last saw him. Then was found down on the floor. Patient unaware of exactly what happened. Denies loss of consciousness. Complains of anterior and right hip pain. Denies neck or back pain. Family states he has had difficulty over the past several weeks with ambulation secondary to weakness. He is Supposed to be using a walker but occasionally forgets. Review of Systems Review of Systems: All systems reviewed & are unremarkable except as noted in HPI and below Constitutional: Constitutional: Denies body ache(s), Denies chills, Denies excessive sweating, Denies fatigue, Denies fever(s), Denies headache(s), Denies lethargy, Denies malaise, Denies weakness and Denies weight loss Eyes: Eyes: Denies blurry vision, Denies change in vision and Denies loss of vision ENT: Denies dizziness, Denies ear discharge, Denies headache(s), Denies lip swelling, Denies epistaxis, Denies nasal congestion, Denies neck pain, Denies throat swelling and Denies tongue swelling Cardiovascular: Cardiovascular: Denies diaphoresis, Denies rapid heart rate, Denies edema, Denies irregular heart rhythm, Denies lightheadedness, Denies palpitations, Denies dyspnea and Denies dyspnea on exertion Respiratory: Respiratory: Denies chest congestion, Denies cough, Denies hemoptysis, Denies dyspnea and Denies dyspnea on exertion Gastrointestinal: Gastrointestinal: Denies abdominal pain, Denies melena, Denies hematochezia, Denies diarrhea, Denies nausea, Denies vomiting and Denies hematemesis Musculoskeletal: Musculoskeletal: Denies abnormal gait, Denies deformity, Denies joint swelling, Denies limited range of motion, Denies neck pain and Denies num
[2021-12-26 20:24] LABS: Glucose Point of Care 199 mg/dl (65-105)
[2021-12-27] VITALS (12 sets, daily range): BP systolic 95–164; BP diastolic 51–72; PULSE 57–74; RESP 16–18; TEMP 35.9–36.2; O2SAT 58–100
[2021-12-27 06:59] LABS: Hematocrit 39.5 % (42.0-52.0); Hemoglobin 12.2 g/dL (14.0-18.0); Mean Corpuscular HGB Conc 30.9 g/dl (32-36); Mean Corpuscular Hemoglobin 27.1 pg (26-34); Mean Corpuscular Volume 87.8 fl (80-100); Mean Platelet Volume 9.8 fl (7.4-10.4); Platelet Count Result 273 k/mm3 (150-375); Red Cell Distribution Width 18.2 % (11.5-14.5); White Blood Count 15.1 K/mm3 (4.5-10.0)
[2021-12-27 07:01] LABS: Anion Gap 13 mmol/L (8-16); Blood Urea Nitrogen 33 mg/dL (9-20); Calcium 9.2 mg/dL (8.4-10.2); Carbon Dioxide 24 mmol/L (22-30); Chloride 104 mmol/L (98-107); Estimated CRCL calculation 51 ml/min; Estimated Glomerular Filt Rate 59; Glucose 248 mg/dL (65-110); Potassium 4.4 mmol/L (3.4-5.0); Sodium 141 mmol/L (137-145)
[2021-12-27] MEDS: INSULIN ASPART (*BKC) 100 UNITS/ML SUB-Q (08:48)
--- NOTE | 2021-12-27 08:55 | PM.PNORT ---
Progress Note: A&P Assessment and Plan (1) Fracture of inferior pubic ramus: Onset Date: 12/26/21 Qualifiers: Encounter type: initial encounter Fracture type: closed Laterality: right Qualified Code(s): S32.591A - Other specified fracture of right pubis, initial encounter for closed fracture Code(s): S32.599A - Other specified fracture of unspecified pubis, initial encounter for closed fracture Status: Acute Assessment and Plan: Conservative treatment with immobilization, ice, compression and elevation. PT/OT. Weight bear as tolerated. Pain control. Difficulty with Tylenol alone. Added Achille. Patient with history of agitation with opioids. Nursing and hospitalist physician aware of addition for pain control. Close monitoring of symptoms. DVT prophylaxis. Dispo: SNF vs Rehab when medically stable and pain controlled. (2) Closed fracture of right side of symphysis pubis: Qualifiers: Encounter type: initial encounter Qualified Code(s): S32.591A - Other specified fracture of right pubis, initial encounter for closed fracture Code(s): S32.591A - Other specified fracture of right pubis, initial encounter for closed fracture Status: Acute Subjective Subjective Date/Time Seen: 12/27/21 08:55 Interval history: Patient with complaints of pain this AM. Difficulty with PT/OT. Heavy assist. Pain uncontrolled by Tylenol. Review of Systems Review of Systems: All systems reviewed & are unremarkable except as noted in HPI and below Exam Const: General: No confusion Orientation/consciousness: patient oriented x3 and No confusion HENMT: Head: normal to inspection, normocephalic and atraumatic Eyes: Conjunctivae: conjunctivae normal Sclera: sclerae normal Neck: Neck: supple and nontender Chest: Chest palpation & inspection: normal inspection of the chest Resp: Effort & Inspection: normal respiratory effort and no audible wheezes Cardio: Rate: regular rate Rhythm: regular rhythm GI: GI Palp: No abdominal tenderness and Yes Soft to palpation : General: Yes deferred Skin: General skin exam: no rashes or lesions noted Neuro: General: patient oriented x3 and No confusion Extrem: General: capillary refill normal Right upper extremity: normal to inspection Left upper extremity: normal to inspection Right lower extremity: hip/thigh Details: tenderness Location: of the hip Location: laterally and swelling Location: at the hip ( mild), ankle ( able to actively flex and extend ankle) Details: no tenderness and foot Details: normal capillary refill, toes with normal ROM, vascular exam Details: dorsalis pedis pulse present and normal capillary refill and motor-sensory exam Details: light-touch normal Location: in all toes; no tenderness Left lower extremity: normal to inspection, hip/thigh Details: no tenderness and no swelling, lower leg, ankle (no calf tenderness) Details: normal ROM; no tenderness and foot Details: normal capillary refill, vascular exam Details: dorsalis pedis pulse present and normal capillary refill and motor-sensory exam light-touch normal in all toes Psych: Affect: normal affect Objective Data Vital Signs Vital Signs: Vital Signs - 24 hr 12/26/21 09:49 12/26/21 10:02 12/26/21 10:40 Temperature Pulse Rate 59 L 57 L 59 L Respiratory Rate 19 15 16 Blood Pressure 198/80 H 183/82 H 166/99 H Pulse Oximetry 95 100 100 12/26/21 10:46 12/26/21 12:00 12/26/21 14:19 Temperature Pulse Rate 57 L 58 L 55 L Respiratory Rate 14 16 20 Blood Pressure 172/85 H 167/91 H 141/89 H Pulse Oximetry 100 100 98 12/26/21 15:33 12/26/21 15:34 12/26/21 16:00 Temperature 35.8 C L 35.8 C L Pulse Rate 59 L 59 L 55 L Respiratory Rate 16 16 Blood Pressure 144/76 H 144/76 H Pulse Oximetry 90 90 12/26/21 20:00 12/26/21 22:00 12/27/21 00:00 Temperature 36.3 C L Pulse Rate 77 61 64 Respiratory Rate 16 Blood Pressure 151/72 H Pulse Oxim
--- NOTE | 2021-12-27 09:30 | PM.IMPN ---
Progress Note: A&P Assessment and Plan (1) Unwitnessed fall: Code(s): R29.6 - Repeated falls Status: Acute Assessment and Plan: - Sustained fracture to the right pubis. - Pt. was evaluated by Orthopedics. - No desire for surgical intervention on the part of the patient or the family. Will have conservative management only at this time. (2) Fracture of right inferior pubic ramus: Qualifiers: Encounter type: initial encounter Fracture type: closed Qualified Code(s): S32.591A - Other specified fracture of right pubis, initial encounter for closed fracture Code(s): S32.591A - Other specified fracture of right pubis, initial encounter for closed fracture Status: Acute Assessment and Plan: - Conservative management only with pain control, PTOT, WBAT, Ice, compression, elevation, DVT prophylaxis, and placement in acute rehab. (3) Closed fracture of right side of symphysis pubis: Qualifiers: Encounter type: initial encounter Qualified Code(s): S32.591A - Other specified fracture of right pubis, initial encounter for closed fracture Code(s): S32.591A - Other specified fracture of right pubis, initial encounter for closed fracture Status: Acute Assessment and Plan: - As noted above (4) Fracture of right superior pubic ramus: Qualifiers: Encounter type: initial encounter Fracture type: closed Qualified Code(s): S32.511A - Fracture of superior rim of right pubis, initial encounter for closed fracture Code(s): S32.511A - Fracture of superior rim of right pubis, initial encounter for closed fracture Status: Acute Assessment and Plan: - As noted above (5) Abnormal urinalysis: Code(s): R82.90 - Unspecified abnormal findings in urine Status: Acute Assessment and Plan: - Urine culture pending. - Pt. on empiric Rocephin for treatment of UTI pending culture results. - Continuing to monitor. (6) Paroxysmal atrial fibrillation: Code(s): I48.0 - Paroxysmal atrial fibrillation Status: Acute Assessment and Plan: - Stable, takes Xarelto 20 mg at home. - Currently on Lovenox, will resume Xarelto at discharge. (7) Chronic anticoagulation: Code(s): Z79.01 - roasterman (current) use of anticoagulants Status: Chronic Assessment and Plan: - As noted above (8) Insulin dependent type 2 diabetes mellitus: Code(s): E11.9 - Type 2 diabetes mellitus without complications; Z79.4 - roasterman (current) use of insulin Status: Acute Assessment and Plan: - Glucose checks AC and HS - SSI Low dose - 30 Units Lantus HS - Hypoglycemic protocol. (9) Hypertension: Qualifiers: Hypertension type: unspecified Qualified Code(s): I10 - Essential (primary) hypertension Code(s): I10 - Essential (primary) hypertension Status: Chronic Assessment and Plan: - Continue to monitor. - Continue home medications. - Prn hydralazine ordered. - Start Amlodipine 2.5 mg po BID as pt. is chronically running high. (10) Dementia: Qualifiers: Dementia type: unspecified type Dementia behavioral disturbance: without behavioral disturbance Qualified Code(s): F03.90 - Unspecified dementia without behavioral disturbance Code(s): F03.90 - Unspecified dementia without behavioral disturbance Status: Chronic Assessment and Plan: - Continue home medications Subjective Date/time seen: 12/27/21 09:30 This pt. was examined at the bedside at this time in interval assessment. He reports that he was very weak and struggled with his PT evaluation as did the Orthopedic MARYCARMEN that was present for the eval. Pt. is having pain and is being given [facility] at this time in an attempt to control it. He is agreeable to placement in rehab at time of discharge. He denies any other complaints at this time such as CP, Dyspnea, N/V/D, or any other complaints. Re
[2021-12-27] MEDS: HYDROcodone/acetaminophen (*CRX) 5-325 MG TABLET 1 TAB PO (09:52)
[2021-12-27] MEDS: ASPIRIN 81 MG ENTERIC TABLET PO ×2 (09:53→10:45)
[2021-12-27] MEDS: DONEPEZIL HCL 10 MG TABLET PO (09:53)
[2021-12-27] MEDS: SERTRALINE HCL 50 MG TABLET 100 MG BY MOUTH ×2 (09:53→19:56)
[2021-12-27] MEDS: EMPAGLIFLOZIN 10 MG TABLET PO (10:46)
[2021-12-27] MEDS: ATORVASTATIN 40 MG TABLET BY MOUTH (10:46)
[2021-12-27] MEDS: ISOSORBIDE DINITRATE 20 MG TABLET PO ×3 (10:46→17:07)
[2021-12-27] MEDS: METOPROLOL TARTRATE 50 MG TAB 100 MG PO ×2 (10:47→19:56)
[2021-12-27] MEDS: ENOXAPARIN 40 MG/0.4 ML SYRINGE SUB-Q (10:48)
[2021-12-27] MEDS: hydroCHLOROthiazide 12.5 MG CAPSULE PO (10:48)
[2021-12-27] MEDS: MEMANTINE 10 MG TABLET PO (10:48)
[2021-12-27] MEDS: amLODIPine BESYLATE 2.5 MG TABLET PO ×2 (10:49→17:07)
--- NOTE | 2021-12-27 10:57 | PC.NURSE ---
Patient family and POA verbalized that the patient is not to take anything aside from tylenol for pain. He has had bad reactions (behavioral) in the past and his POA mentioned that he can take days to recover from them.
[2021-12-27 11:06] LABS: Glucose Point of Care 247 mg/dl (65-105)
[2021-12-27 11:51] LABS: Glucose Point of Care 494 mg/dl (65-105)
[2021-12-27] MEDS: INSULIN ASPART (*BKC) 100 UNITS/ML 6 UNITS SUB-Q (13:08)
[2021-12-27 16:20] LABS: Glucose Point of Care 408 mg/dl (65-105)
[2021-12-27] MEDS: ACETAMINOPHEN 325 MG TABLET 650 MG PO (17:05)
[2021-12-27] MEDS: INSULIN ASPART (*BKC) 100 UNITS/ML 10 UNITS SUB-Q (17:08)
[2021-12-27] MEDS: INSULIN GLARGINE (*BKC) 100 UNITS/ML 35 UNITS SUB-Q (19:56)
[2021-12-27 20:11] LABS: Glucose Point of Care 262 mg/dl (65-105)
[2021-12-28] VITALS (15 sets, daily range): BP systolic 94–149; BP diastolic 49–66; PULSE 57–96; RESP 16–18; TEMP 36.1–36.4; O2SAT 90–100
[2021-12-28 06:15] LABS: Basophils Absolute Auto 0.1 K/mm3 (0.0-0.1); Basophils Percent Auto 0.4 % (0.2-1.2); Eosinophils Absolute Auto 0.8 K/mm3 (0-0.3); Eosinophils Percent Auto 5.9 % (0-4.4); Hematocrit 34.3 % (42.0-52.0); Hemoglobin 10.5 g/dL (14.0-18.0); Immature Granulocyte Absolute 0.05 K/mm3 (0.00-0.031); Immature Granulocyte Percent A 0.4 % (0-0.5); Lymphocytes Absolute Auto 1.24 K/mm3 (0.9-3.2); Lymphocytes Percent Auto 9.7 % (18.3-44.2); Mean Corpuscular HGB Conc 30.6 g/dl (32-36); Mean Corpuscular Hemoglobin 26.9 pg (26-34); Mean Corpuscular Volume 87.7 fl (80-100); Mean Platelet Volume 9.8 fl (7.4-10.4); Monocytes Absolute Auto 0.9 K/mm3 (0.1-0.6); Monocytes Percent Auto 6.7 % (2.6-8.5); Neutrophils Absolute Auto 9.8 K/mm3 (1.3-6.7); Neutrophils Percent Auto 76.9 % (45.5-73.1); Platelet Count Result 229 k/mm3 (150-375); Red Blood Count 3.91 M/mm3 (4.6-6.20); Red Cell Distribution Width 18.4 % (11.5-14.5); White Blood Count 12.8 K/mm3 (4.5-10.0)
[2021-12-28 06:27] LABS: Alanine Aminotransferase 31 U/L (4-50); Albumin Level 3.4 g/dL (3.5-5.1); Alkaline Phosphatase 150 U/L (38-126); Anion Gap 7 mmol/L (8-16); Aspartate Amino Transferase 33 U/L (17-59); Bilirubin,Total 0.4 mg/dL (0.2-1.3); Blood Urea Nitrogen 45 mg/dL (9-20); Calcium 8.9 mg/dL (8.4-10.2); Carbon Dioxide 27 mmol/L (22-30); Chloride 106 mmol/L (98-107); Estimated CRCL calculation 38 ml/min; Estimated Glomerular Filt Rate 42; Glucose 213 mg/dL (65-110); Magnesium 2.3 mg/dL (1.6-2.3); Potassium 3.8 mmol/L (3.4-5.0); Sodium 140 mmol/L (137-145)
[2021-12-28] MEDS: ACETAMINOPHEN 325 MG TABLET 650 MG PO ×2 (07:52→14:31)
[2021-12-28] MEDS: ENOXAPARIN 40 MG/0.4 ML SYRINGE SUB-Q (07:52)
[2021-12-28] MEDS: ASPIRIN 81 MG ENTERIC TABLET PO ×2 (07:52→17:07)
[2021-12-28] MEDS: DONEPEZIL HCL 10 MG TABLET PO (07:53)
[2021-12-28] MEDS: ISOSORBIDE DINITRATE 20 MG TABLET PO ×3 (07:53→17:07)
[2021-12-28] MEDS: ATORVASTATIN 40 MG TABLET BY MOUTH (07:53)
[2021-12-28] MEDS: MEMANTINE 10 MG TABLET PO (07:53)
[2021-12-28] MEDS: hydroCHLOROthiazide 12.5 MG CAPSULE PO (07:54)
[2021-12-28] MEDS: SERTRALINE HCL 50 MG TABLET 100 MG BY MOUTH ×2 (07:54→17:06)
[2021-12-28] MEDS: METOPROLOL TARTRATE 50 MG TAB 100 MG PO ×2 (07:54→20:24)
[2021-12-28] MEDS: buPROPion HCL XL (24 HR) 150 MG TABCR 300 MG PO (07:55)
[2021-12-28] MEDS: EMPAGLIFLOZIN 10 MG TABLET PO (07:56)
[2021-12-28 08:14] LABS: Glucose Point of Care 214 mg/dl (65-105)
[2021-12-28] MEDS: INSULIN ASPART (*BKC) 100 UNITS/ML SUB-Q ×3 (09:46→17:07)
[2021-12-28] MEDS: amLODIPine BESYLATE 2.5 MG TABLET PO ×2 (10:00→17:06)
--- NOTE | 2021-12-28 10:49 | PC.NURSE ---
Provider Jayleen informed UC resulted in Klebsiella pneumoniae.
[2021-12-28 11:42] LABS: Glucose Point of Care 487 mg/dl (65-105)
[2021-12-28] MEDS: INSULIN ASPART (*BKC) 100 UNITS/ML 10 UNITS SUB-Q (11:54)
--- NOTE | 2021-12-28 12:49 | PM.IMPN ---
Progress Note: A&P Assessment and Plan (1) Unwitnessed fall: Code(s): R29.6 - Repeated falls Status: Acute Assessment and Plan: - Sustained fracture to the right pubis. - Pt. was evaluated by Orthopedics. - No desire for surgical intervention on the part of the patient or the family. Will have conservative management only at this time. (2) Fracture of right inferior pubic ramus: Qualifiers: Encounter type: initial encounter Fracture type: closed Qualified Code(s): S32.591A - Other specified fracture of right pubis, initial encounter for closed fracture Code(s): S32.591A - Other specified fracture of right pubis, initial encounter for closed fracture Status: Acute Assessment and Plan: - Conservative management only with pain control, PTOT, WBAT, Ice, compression, elevation, DVT prophylaxis, and placement in acute rehab. (3) Closed fracture of right side of symphysis pubis: Qualifiers: Encounter type: initial encounter Qualified Code(s): S32.591A - Other specified fracture of right pubis, initial encounter for closed fracture Code(s): S32.591A - Other specified fracture of right pubis, initial encounter for closed fracture Status: Acute Assessment and Plan: - As noted above (4) Fracture of right superior pubic ramus: Qualifiers: Encounter type: initial encounter Fracture type: closed Qualified Code(s): S32.511A - Fracture of superior rim of right pubis, initial encounter for closed fracture Code(s): S32.511A - Fracture of superior rim of right pubis, initial encounter for closed fracture Status: Acute Assessment and Plan: - As noted above (5) Abnormal urinalysis: Code(s): R82.90 - Unspecified abnormal findings in urine Status: Acute Assessment and Plan: - Pt. with + UTI with culture significant for Klebsiella pneumonaie. - Start Bactrim DS BID as per culture and sensitivity. - Levaquin not being used as there is a contraindication with Namenda for following QT syndrome. (6) Paroxysmal atrial fibrillation: Code(s): I48.0 - Paroxysmal atrial fibrillation Status: Acute Assessment and Plan: - Stable, takes Xarelto 20 mg at home. - Currently on Lovenox, will resume Xarelto at discharge. 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 - Lantus increased to 40 units HS. - Mealtime insulin of 5 units with each meal added. - Hypoglycemic protocol. (9) Hypertension: Qualifiers: Hypertension type: unspecified Qualified Code(s): I10 - Essential (primary) hypertension Code(s): I10 - Essential (primary) hypertension Status: Chronic Assessment and Plan: - Continue to monitor. - Continue home medications. - Prn hydralazine ordered. - Start Amlodipine 2.5 mg po BID as pt. is chronically running high. (10) Dementia: Qualifiers: Dementia type: unspecified type Dementia behavioral disturbance: without behavioral disturbance Qualified Code(s): F03.90 - Unspecified dementia without behavioral disturbance Code(s): F03.90 - Unspecified dementia without behavioral disturbance Status: Chronic Assessment and Plan: - Continue home medications Subjective Date/time seen: 12/28/21 0815 This pt. was examined at the bedside today in interval exam. He appears to be more awake and does not appear to be in any acute distress. He reports that he is starting to feel better overall. His Urine cx resulted today and showed G-baci
[2021-12-28 16:40] LABS: Glucose Point of Care 269 mg/dl (65-105)
[2021-12-28] MEDS: INSULIN GLARGINE (*BKC) 100 UNITS/ML 40 UNITS SUB-Q (20:25)
[2021-12-28 20:53] LABS: Glucose Point of Care 140 mg/dl (65-105)
[2021-12-29 05:29] VITALS: BP 149/67; PULSE 62; RESP 18; TEMP 36.2; O2SAT 97
[2021-12-29 06:25] LABS: Basophils Absolute Auto 0.1 K/mm3 (0.0-0.1); Basophils Percent Auto 0.5 % (0.2-1.2); Eosinophils Absolute Auto 0.5 K/mm3 (0-0.3); Eosinophils Percent Auto 4.3 % (0-4.4); Hematocrit 32.9 % (42.0-52.0); Hemoglobin 10.4 g/dL (14.0-18.0); Immature Granulocyte Absolute 0.08 K/mm3 (0.00-0.031); Immature Granulocyte Percent A 0.7 % (0-0.5); Lymphocytes Absolute Auto 1.57 K/mm3 (0.9-3.2); Lymphocytes Percent Auto 13.4 % (18.3-44.2); Mean Corpuscular HGB Conc 31.6 g/dl (32-36); Mean Corpuscular Hemoglobin 26.9 pg (26-34); Mean Corpuscular Volume 85.2 fl (80-100); Mean Platelet Volume 9.3 fl (7.4-10.4); Monocytes Absolute Auto 0.9 K/mm3 (0.1-0.6); Monocytes Percent Auto 7.4 % (2.6-8.5); Neutrophils Absolute Auto 8.7 K/mm3 (1.3-6.7); Neutrophils Percent Auto 73.7 % (45.5-73.1); Platelet Count Result 221 k/mm3 (150-375); Red Blood Count 3.86 M/mm3 (4.6-6.20); Red Cell Distribution Width 18.4 % (11.5-14.5); White Blood Count 11.8 K/mm3 (4.5-10.0)
[2021-12-29 06:29] LABS: Alanine Aminotransferase 34 U/L (4-50); Albumin Level 3.5 g/dL (3.5-5.1); Alkaline Phosphatase 153 U/L (38-126); Anion Gap 7 mmol/L (8-16); Aspartate Amino Transferase 42 U/L (17-59); Bilirubin,Total 0.6 mg/dL (0.2-1.3); Blood Urea Nitrogen 39 mg/dL (9-20); Calcium 9.1 mg/dL (8.4-10.2); Carbon Dioxide 26 mmol/L (22-30); Chloride 103 mmol/L (98-107); Estimated CRCL calculation 44 ml/min; Estimated Glomerular Filt Rate 49; Glucose 150 mg/dL (65-110); Magnesium 2.2 mg/dL (1.6-2.3); Potassium 3.8 mmol/L (3.4-5.0); Sodium 136 mmol/L (137-145)
[2021-12-29 07:55] LABS: Glucose Point of Care 146 mg/dl (65-105)
[2021-12-29 08:00] VITALS: BP 163/69; PULSE 65; PULSE 73; RESP 18; TEMP 36.3; O2SAT 95
[2021-12-29] MEDS: ATORVASTATIN 40 MG TABLET BY MOUTH (08:54)
[2021-12-29] MEDS: ISOSORBIDE DINITRATE 20 MG TABLET PO (08:54)
[2021-12-29] MEDS: amLODIPine BESYLATE 2.5 MG TABLET PO (08:54)
[2021-12-29] MEDS: SERTRALINE HCL 50 MG TABLET 100 MG BY MOUTH (08:55)
[2021-12-29] MEDS: EMPAGLIFLOZIN 10 MG TABLET PO (08:55)
[2021-12-29] MEDS: MEMANTINE 10 MG TABLET PO (08:55)
[2021-12-29] MEDS: DONEPEZIL HCL 10 MG TABLET PO (08:55)
[2021-12-29] MEDS: ASPIRIN 81 MG ENTERIC TABLET PO (08:55)
[2021-12-29] MEDS: hydroCHLOROthiazide 12.5 MG CAPSULE PO (08:55)
[2021-12-29] MEDS: INSULIN ASPART (*BKC) 100 UNITS/ML SUB-Q (08:56)
[2021-12-29] MEDS: buPROPion HCL XL (24 HR) 150 MG TABCR 300 MG PO (08:56)
[2021-12-29] MEDS: ENOXAPARIN 40 MG/0.4 ML SYRINGE SUB-Q (08:56)
[2021-12-29] MEDS: METOPROLOL TARTRATE 50 MG TAB 100 MG PO (08:56)
[2021-12-29] MEDS: ACETAMINOPHEN 325 MG TABLET 650 MG PO (08:57)
[2021-12-29 08:58] VITALS: BP 95/64
--- NOTE | 2021-12-29 10:28 | PM.DS ---
DS: Admitting Diagnosis Discharge Date 12/29/2021 Admitting Diagnosis 1) Unwitnessed Fall 2) Fracture of right inferior Pubic ramus 3) Closed fracture of right side of symphysis pubis 4) Fracture of right superior pubic ramus 5) Abnormal UA 6) Paroxysmal Atrial Fibrillation 7) Chronic Anticoagulation 8) Insulin dependent Type 2 DM 9) HTN DS: Discharge Diagnosis Discharge Diagnosis (1) Unwitnessed fall: Code(s): R29.6 - Repeated falls Status: Acute Assessment and Plan: - Sustained fracture to the right pubis/pelvis - Pt. was evaluated by Orthopedics. - No desire for surgical intervention on the part of the patient or the family. Will have conservative management only at this time. - Has been evaluated by PT and deemed appropriate for rehab services. (2) Fracture of right inferior pubic ramus: Qualifiers: Encounter type: initial encounter Fracture type: closed Qualified Code(s): S32.591A - Other specified fracture of right pubis, initial encounter for closed fracture Code(s): S32.591A - Other specified fracture of right pubis, initial encounter for closed fracture Status: Acute Assessment and Plan: - Conservative management only with pain control, PTOT, WBAT, Ice, compression, elevation, DVT prophylaxis, and placement in acute rehab. (3) Closed fracture of right side of symphysis pubis: Qualifiers: Encounter type: initial encounter Qualified Code(s): S32.591A - Other specified fracture of right pubis, initial encounter for closed fracture Code(s): S32.591A - Other specified fracture of right pubis, initial encounter for closed fracture Status: Acute Assessment and Plan: - As noted above (4) Fracture of right superior pubic ramus: Qualifiers: Encounter type: initial encounter Fracture type: closed Qualified Code(s): S32.511A - Fracture of superior rim of right pubis, initial encounter for closed fracture Code(s): S32.511A - Fracture of superior rim of right pubis, initial encounter for closed fracture Status: Acute Assessment and Plan: - As noted above (5) Abnormal urinalysis: Code(s): R82.90 - Unspecified abnormal findings in urine Status: Acute Assessment and Plan: - Pt. with + UTI with culture significant for Klebsiella pneumonaie. - Start Bactrim DS BID as per culture and sensitivity. Continue for discharge for 7 days. - Levaquin not being used as there is a contraindication with Namenda for following QT syndrome. (6) Paroxysmal atrial fibrillation: Code(s): I48.0 - Paroxysmal atrial fibrillation Status: Acute Assessment and Plan: - Resume Xarelto 20 mg po daily. 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 - Lantus increased to 40 units HS. - Mealtime insulin of 5 units with each meal added. - Hypoglycemic protocol. (9) Hypertension: Qualifiers: Hypertension type: unspecified Qualified Code(s): I10 - Essential (primary) hypertension Code(s): I10 - Essential (primary) hypertension Status: Chronic Assessment and Plan: - Continue to monitor. - Amlodipine 2.5 mg po BID is ordered as pt was chronically running high, and it has been improved, so will continue. (10) Dementia: Qualifiers: Dementia behavioral disturbance: without behavioral disturbance Dementia type: unspecified type Qualified Code(s): F03.90 - Unspecified dementia without behavioral disturbance Code(s): F03.90 - Unspecified dementia without behav
[2021-12-29 11:20] LABS: Glucose Point of Care 405 mg/dl (65-105)
[2021-12-29 12:00] VITALS: PULSE 80
== END 2021-12-29 13:25 ==
LOC: ANHED 12:48 → ANH3MEDSUR 14:02
PROVIDERS: Physician Assistant; Admitting Provider Internal Medicine; Emergency Provider Emergency Medicine; PCP Family Medicine; Visit Provider Nurse Practitioner Adult Health
DX: S32.591A Other specified fracture of right pubis, initial encounter for closed fracture (principal); S32.501A Unspecified fracture of right pubis, initial encounter for closed fracture; N39.0 Urinary tract infection, site not specified; B96.1 Klebsiella pneumoniae [K. pneumoniae] as the cause of diseases classified elsewhere; I48.0 Paroxysmal atrial fibrillation; I25.10 Atherosclerotic heart disease of native coronary artery without angina pectoris; I10 Essential (primary) hypertension; E11.9 Type 2 diabetes mellitus without complications; E78.5 Hyperlipidemia, unspecified; K21.9 Gastro-esophageal reflux disease without esophagitis; F03.90 Unspecified dementia, unspecified severity, without behavioral disturbance, psychotic disturbance, mood disturbance, and anxiety; W19.XXXA Unspecified fall, initial encounter; Z79.4 Long term (current) use of insulin; Z79.01 Long term (current) use of anticoagulants; Z95.1 Presence of aortocoronary bypass graft; Z86.73 Personal history of transient ischemic attack (TIA), and cerebral infarction without residual deficits; Z95.5 Presence of coronary angioplasty implant and graft; R29.6 Repeated falls
CPT/HCPCS: 36415; 70450; 71046; 72125; 72192; 73502; 80048; 80053; 81001; 82948; 83036; 83735; 84443; 84484; 85025; 85027; 85610; 85730; 87077; 87086; 87186; 93005; 96365; 96367; 96372; 96375; 96376; 97110; 97161; 97166; 97530; 97535; 99285; A9270; G0378; J0131; J0696; J1650; J1815; J2270; J2405

== ENCOUNTER 2022-01-16 21:42 | Emergency (ER) | payer MEDICARE, OTHER, SELFPAY ==
[2022-01-16] VITALS (7 sets, daily range): BP systolic 139–158; BP diastolic 63–70; PULSE 55–59; RESP 11–17; TEMP 36.4; O2SAT 98–100
--- NOTE | ~2022-01-16 | CT_ITS ---
EXAMINATION: CT brain wo con DATE: 01/16/2022 22:18 INDICATION: Head injury. TECHNIQUE: Computed tomography (CT) of the head was performed without intravenous contrast. The mA wa s adjusted according to patient size. Iterative reconstruction technique was employed. The dose-lengt h product was 681.00 mGy-cm. COMPARISON: Head CT 12/26/2021 FINDINGS: There are old infarcts in the bilateral basal ganglia. There are scattered areas of low att enuation in the cerebral white matter. There is no intracranial hemorrhage, acute infarction, or abno rmal intracranial mass lesion. The ventricles are normal in size. The orbits are normal. There is muc osal thickening in the paranasal sinuses. There is a small right mastoid effusion. IMPRESSION: 1. 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 2. Stable moderate nonspecific cerebral white matter disease, which likely represents chronic small v essel ischemic disease. Reviewed, dictated and finalized at location A. IMPRESSION: 1. 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 2. Stable moderate nonspecific cerebral white matter disease, which likely repr esents chronic small vessel ischemic disease.
--- NOTE | ~2022-01-16 | XR_ITS ---
EXAMINATION: XR hip RT 2V w AP pelvis DATE: 01/16/2022 22:46 INDICATION: Right hip pain. TECHNIQUE: An anteroposterior view of the pelvis and 2 views of right hip on 3 radiographs were obtai maia. COMPARISON: Pelvis and right hip radiographs 12/26/2021, pelvis CT 12/26/2021, right hip CT 06/27/21 FINDINGS: Again seen are displaced fractures of right superior and inferior pubic rami. There is a fr acture of right sacral ala. There is an old healed fracture of proximal right femur with internal fix ation with antegrade intramedullary anamaria, distal interlocking screw, and 2 femoral head/neck screws. T here is moderate right hip osteoarthritis and mild left hip osteoarthritis. There is mild lumbar spon dylosis. IMPRESSION: 1. Subacute insufficiency fractures of right superior and inferior pubic rami and right sacral ala wi thout change. 2. Moderate right hip osteoarthritis and mild left hip osteoarthritis. Reviewed, dictated and finalized at location A. IMPRESSION: 1. Subacute insufficiency fractures of right superior and inferior pubic rami a nd right sacral ala without change. 2. Moderate right hip osteoarthritis and mild left hip osteoarthritis.
--- NOTE | ~2022-01-16 | CT_ITS ---
EXAMINATION: CT cervical spine wo con DATE: 01/16/2022 22:18 INDICATION: Head injury. TECHNIQUE: Computed tomography (CT) of the cervical spine was performed without intravenous contrast. Automated exposure control and iterative reconstruction technique were employed. The dose-length pro duct was 317.38 mGy-cm. COMPARISON: CT cervical spine 12/26/2021 FINDINGS: There is 7 degrees levocurvature of cervicothoracic spine. There is mild chronic anterior w edging of T1 vertebral body. There is mildly decreased disc height at C4-C5, C5-C6, and C6-C7. The fo llowing disc levels are specifically discussed: C2-C3: There is ankylosis of right uncovertebral joint without hypertrophy. There is mild left facet joint osteoarthritis. There is ankylosis of right facet joint with mild hypertrophy. There is no neur al foraminal stenosis. There is no central canal stenosis. C3-C4: There is moderate and severe left uncovertebral joint osteoarthritis. There is moderate bilate ral facet joint osteoarthritis. There is mild bilateral neural foraminal stenosis. There is mild cent ral canal stenosis. C4-C5: There is moderate bilateral uncovertebral joint osteoarthritis. There is mild bilateral facet joint osteoarthritis. There is mild bilateral neural foraminal stenosis. There is mild central canal stenosis. C5-C6: There is severe right and moderate left uncovertebral joint osteoarthritis. There is mild righ t and severe left facet joint osteoarthritis. There is mild bilateral neural foraminal stenosis. Ther e is mild central canal stenosis. C6-C7: There is mild bilateral uncovertebral joint osteoarthritis. There is mild bilateral facet join t osteoarthritis. There is mild right neural foraminal stenosis. There is mild central canal stenosis . C7-T1: There is no uncovertebral joint osteoarthritis. There is mild bilateral facet joint osteoarthr itis. There is no neural foraminal stenosis. There is no central canal stenosis. IMPRESSION: 1. No fracture. 2. Mild cervical spondylosis. Reviewed, dictated and finalized at location A.
--- NOTE | 2022-01-16 21:53 | ED.FALL ---
HPI - Fall General Chief Complaint: Fall Stated Complaint: glf in shower-struck back of head/back Time Seen by Provider: 01/16/22 21:51 Source: patient and EMS Mode of arrival: EMS Limitations: no limitations History of Present Illness HPI Narrative: Patient is a 76-year-old male with a history of insulin-dependent diabetes, paroxysmal atrial fibrillation on chronic anticoagulation, pelvic fracture, presenting to the emergency department for evaluation of fall. Patient had a witnessed fall off of a stool while he was taking a shower. Patient has had an unsteady gait secondary to his pelvic fracture, was getting a shower this evening when he went to sit down on a stool and kind of slipped off to the side per staff. Patient hit his head on the back of the shower. No loss of conscious. Patient denies mild headache in the back of his head without vision changes, nausea, vomiting. He denies any neck pain, lower back pain, extremity pain. He does report mild pain at the right hip which is consistent with his chronic pain. Denies any weakness, numbness. Denies fever, chills, nausea or vomiting. Has been tolerating oral intake well. He has had all of his medications prescribed today. Related Data Home Medications Medication Instructions Recorded Confirmed isosorbide dinitrate 20 mg PO TID 09/25/19 12/26/21 Xarelto 20 mg PO QACDINNER 11/09/19 12/26/21 aspirin [Adult Low Dose Aspirin] 81 mg PO DAILY 11/09/19 12/26/21 metoprolol tartrate 100 mg PO BID 01/24/21 12/26/21 memantine 10 mg PO DAILY 12/26/21 12/26/21 bupropion HCl 300 mg PO DAILY 12/27/21 12/27/21 memantine 10 mg PO DAILY 12/27/21 12/27/21 Allergies Allergy/AdvReac Type Severity Reaction Status Date / Time morphine AdvReac Severe Agitated Verified 12/26/21 15:34 cyclobenzaprine AdvReac Confusion Verified 12/26/21 09:05 [From Flexeril] tramadol AdvReac Confusion Verified 12/26/21 09:05 Review of Systems Review of Systems: CONSTITUTIONAL: Denies fever, chills, or sweats. EYES: Denies visual changes, redness, or discharge. ENT: Denies rhinorrhea, congestion, sore throat, or otalgia. CARDIOVASCULAR: Denies chest pain, palpitations, or edema. RESPIRATORY: Denies cough or dyspnea. GASTROINTESTINAL: Denies abdominal pain, nausea, vomiting, or diarrhea. GENITOURINARY: Denies dysuria or hematuria. SKIN: Denies rash or itching. MUSCULOSKELETAL: Denies back pain, reports right hip pain NEUROLOGIC: Reports mild headache without numbness, or weakness. PMFSH Past Medical History Medical History Cerebrovascular accident Chronic anticoagulation Coronary artery disease Current mild episode of major depressive disorder Dementia Fracture of neck of right femur (06/2021) Gastroesophageal reflux disease Hiatal hernia with GERD Hyperlipidemia Hypertension Insulin dependent type 2 diabetes mellitus Melena (02/2021) Paroxysmal atrial fibrillation Surgical History Surgical History History of arthroscopy of right knee History of coronary artery stent placement History of four vessel coronary artery bypass graft History of right hip replacement Family History Family History Father Hypertension Mother Cerebrovascular accident Social History Social History Social History: . Lives with his in [place]. 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 Lifelong nonsmoker. No alcohol or illicit substance abuse. [id number]: Star Chaudhary (). Code status: Do not resuscitate. Exam Narrative: Nursing note and vitals reviewed. CONSTITUTIONAL: The patient appears well-developed and well-nourished. No distress. HEAD: Normocephalic and atraumatic. EYES: PERRL, EOMI, normal conjunctiva, anicteric EARS: External ears clear bilaterally, no hem
[2022-01-16 22:28] LABS: Glucose Point of Care 281 mg/dl (65-105)
[2022-01-16] MEDS: ACETAMINOPHEN 500 MG TABLET 1000 MG PO (22:36)
--- NOTE | 2022-01-16 23:18 | PC.NURSE ---
called [facility] for Transport. ETA [id number]
--- NOTE | 2022-01-17 02:12 | PC.NURSE ---
called [facility] for ETA update. ETA 15 minutes.
--- NOTE | 2022-01-17 03:06 | PC.NURSE ---
called [facility] for ETA update. ETA 15 minutes.
--- NOTE | 2022-01-17 03:30 | PC.NURSE ---
[facility] here.
== END 2022-01-17 03:54 ==
PROVIDERS: Emergency Provider Emergency Medicine; PCP Family Medicine
DX: S09.90XA Unspecified injury of head, initial encounter (principal); K21.9 Gastro-esophageal reflux disease without esophagitis; I10 Essential (primary) hypertension; E78.5 Hyperlipidemia, unspecified; I48.91 Unspecified atrial fibrillation; Z79.01 Long term (current) use of anticoagulants; W07.XXXA Fall from chair, initial encounter
CPT/HCPCS: 70450; 72125; 73502; 82948; 99284; A9270